=== PATIENT | male | born 1945 | race Caucasian/White ===

== ENCOUNTER 2016-09-12 09:17 | Day surgery (SDC) | payer MEDICARE, BC ==
[~2016-09-12 09:17] MED LIST: Buffered Lidocaine 0.9% SYRIN* 5 ML/SYR SYRINGE INTRADERM ONE; Dexamethasone IV* 4 MG/ML 1 ML (4 MG) IV SLOW PU ONE; Famotidine IV* 10 MG/ML 2 ML (20 mg) IV ONE
[2016-09-12] MEDS ORDERED: Dexamethasone IV* 4 MG/ML 1 ML (4 MG) ONE (09:32)
[2016-09-12] MEDS ORDERED: ceFAZolin 2 GM PREMIX(*) 2 GM/50 ML BAG IVPB ONE (09:32)
[2016-09-12] MEDS ORDERED: Famotidine IV* 10 MG/ML 2 ML (20 mg) ONE (09:32)
[2016-09-12] MEDS ORDERED: Buffered Lidocaine 0.9% SYRIN* 5 ML/SYR SYRINGE ONE (09:54)
[2016-09-12] MEDS ORDERED: Bupivacaine 0.25% SDV* 30 ML ONE (10:23)
[2016-09-12] MEDS ORDERED: Midazolam* 1 MG/ML 2 ML VIAL (2 MG) ONE (10:31)
[2016-09-12] MEDS ORDERED: fentaNYL* 50 MCG/ML 2 ML VIAL (100 MCG VIAL) ONE (10:31)
[2016-09-12] MEDS ORDERED: Propofol* 10 MG/ML 20 ML BTL IV PUSH ONE (10:33)
[2016-09-12] MEDS ORDERED: Lidocaine 2% PF * 5 ML VIAL ONE (10:33)
[2016-09-12] MEDS ORDERED: ROPIVACAINE 5 MG/ML 30 ML BTL (0.5%) ONE (10:35)
[2016-09-12] MEDS ORDERED: EPHEDrine (Pressors)* 50 MG/ML VIAL ONE (11:36)
[2016-09-12] MEDS ORDERED: Ondansetron INJ* 2 MG/ML VIAL ONE ×3 (11:42→14:03)
[2016-09-12] MEDS ORDERED: fentaNYL* 50 MCG/ML 2 ML VIAL (100 MCG VIAL) IV PRN (12:08)
[2016-09-12] MEDS ORDERED: PROCHLORPERAZINE INJ 5 MG/ML 2 ML VIAL IV PRN (12:08)
[2016-09-12] MEDS ORDERED: Acetaminophen TAB* 325 MG PO PRN (12:08)
[2016-09-12] MEDS ORDERED: oxyCODONE/Acetamin 5/325 MG* TAB PO PRN (12:08)
[2016-09-12] MEDS ORDERED: HYDROcodone/ACETAMIN 5-325 MG* 1 TAB PO PRN (12:08)
[2016-09-12] MEDS ORDERED: Ibuprofen TAB* 600 MG PO PRN (12:08)
[2016-09-12] MEDS ORDERED: Metoclopramide IV* 5 MG/ML 2 ML VIAL ONE (14:28)
[2016-09-12 15:02] VITALS: BP 104/58
--- NOTE | 2016-09-13 00:38 | OP ---
DATE OF OPERATION: 09/12/16 - LOCATED WITHIN [facility] DATE OF : 47 SURGEON: Garcia Antoine MD TERMITE TREATER: ARTURO Cruz. An senior care assistant was required for the entirety of the procedure to help with retraction and positioning of the arm. ANESTHESIOLOGIST: Dr. Low. ANESTHESIA: Supraclavicular block plus general LMA. PRE-OP DIAGNOSES: 1. 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 2. Stage 1 SLAC wrist. 3. Right carpal tunnel syndrome. PRE-OP DIAGNOSES: 1. 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 2. Stage 1 SLAC wrist. 3. Right carpal tunnel syndrome. OPERATIVE PROCEDURES: 1. Right open carpal tunnel release. 2. Right wrist proximal row carpectomy. 3. Right posterior interosseous neurectomy at the wrist. 4. Right wrist radial styloidectomy. INDICATIONS: Rhonda is a 71-year-old man who I have seen in the office multiple times. He has end-stage degenerative joint disease at the STT joint. On his imaging including x-rays and CT scans, he has a fixed DISI deformity. He also had some degenerative joint disease at the radial styloid and a cyst in the proximal pole of the scaphoid. His wrist motion is limited only to about 30 to 40 degrees of wrist extension with severe pain at terminal wrist extension. 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 It also became clear that he was having significant symptoms related to peripheral nerve compression, multiple nighttime awakenings. I had delayed any intervention and sent him for electrodiagnostic studies, which showed moderate carpal tunnel syndrome on the right. 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 I had initially talked with Rhonda about the best treatment options for him. I offered him injection which I thought would have to be done under image guidance, but I thought it would be of low utility given the advanced nature of the degenerative joint disease that he has. I had talked to him about releasing the ulnar nerve as well. Ultimately, we had discussed that, but then later we had had subsequent conversations and ultimately we decided that we would see how much relief he would get addressing the arthritis as well as the carpal tunnel and then if we have to come back and do the ulnar nerve at a later date, we can do that as that is a significant amount of surgery for one arm to do all three procedures. I talked to him about different treatment options for the arthritis that he had. In my mind these included couple of options. I did not think he was a good candidate for an STT fusion given the fact that this would tranfer forces to the radioscaphoid joint, which was already abnormal. I also did not think that a distal scaphoid resection would be in his best interest given that this would further alter the mechanics of the wrist and he already has a fixed DISI deformity. I had talked to him about a radioscapholunate fusion coupled with a distal scaphoidectomy. He was not interested in the prolonged immobilization that this would require. The other option I discussed with him would be to do a proximal row carpectomy, which would address his DISI deformity and SLAC wrist and also would alleviate symptoms at the STT joint. Ultimately, we decided to proceed with the proximal row carpectomy and the carpal tunnel release. He understood the risks and benefits. ESTIMATED BLOOD LOSS: 5 mL. COMPLICATIONS: None. FINDINGS: Advanced degenerative changes in the STT and scaphocapitate joints with full thickness cartilage loss. There was also significant cartilage wear and patches of full thickness carpal loss in the radioscaphoid joint. The cartilage over the proximal capitate was certainly not normal, but acceptable. The multiple intraarticular deposits consistent with pseudogout were also encountered. DESCRIPTION OF PROCEDURE: Rhonda was seen in the preoperative holding area. The correct site, side, and the procedure were identified. He came back to the operating room, where the block was placed and anesthesia was induced. The arm was then prepped and draped in the usual fashion and a formal time-out was performed. I began by exsanguinating the arm with the Esmarch and then the tourniquet was inflated to 250 mmHg. I began by making a 2 to 3 cm incision in the standard location for an open carpal tunnel release. Dissection was carried down through the subcutaneous tissue in the palmar fascia. The transverse carpal ligament was exposed. I went ahead and released the transverse carpal ligament just at the ulnar origin of the thenar muscles and off the radial aspect of the hook of the hamate. The release was carried out distally. I then released the subcutaneous tissue and retracted this volarly and ulnarly with the Roya retractor and carried out the rest of the release at the proximal transverse carpal ligament and distal antebrachial fascia under direct visualization with the tenotomy scissors. I then inspected the median nerve. He did indeed have a transligamentous motor branch, which was large and readily apparent. It was just a couple of millimeters radial to where I had released the transverse carpal ligament. It was intact. I went ahead and checked the decompression proximally and distally. Everything looked nice. So, I went ahead and irrigated out the wound and the skin was closed with 4-0 nylon sutures. I then turned my attention to the dorsum of the wrist where a longitudinal incision was made from the proximal third metacarpal down just radial to Mary' s tubercle and on to the dorsum of the forearm. Dissection was carried down longitudinally and full thickness flaps were raised right off of the extensor retinaculum in deep fascial layer to preserve the traversing veins and sensory nerves. Once the full thickness flaps were raised, I went ahead and made a longitudinal incision through the third dorsal compartment extensor retinaculum. The EPL tendon was transposed and retracted radially. The fourth dorsal compartment was released subperiosteally and the tendons retracted ulnarly. The second dorsal compartment tendons were also released and retracted radially via a Con drain with the EPL tendon. Once I had the tendons retracted and the dorsal wrist capsule exposed, I went ahead and raised distally based U flap of capsule to expose the dorsal carpus. Once the flap was raised, I went ahead and flexed wrist down and noted that the SL ligament was indeed completely degenerative and not functional. There was just a bit of the membranous portion proximally that was still in continuity between the two bones. The cartilage surfaces were also noted. The radiolunate cartilage was intact although certainly not normal, but intact. There were some spots of full thickness cartilage loss in the radioscaphoid articulation. The soft tissue was released around the lunate and this was excised with a rongeur in a piecemeal type fashion. I then released some more soft tissue around the proximal scaphoid. I placed a [id number] clamp on the proximal pole of the scaphoid and used this to retract the scaphoid bone as I carried out the release of the soft tissue around the scaphoid. The scaphoid was removed en bloc. I removed the triquetrum en bloc in a similar fashion using the point-of- reduction clamp to retract and manipulate the bone. Once I had completed the proximal row corpectomy, I irrigated out the wound. There were no bony fragments of the lunate remaining. I at this point went ahead and let the capitate fall down and make an articulation with the lunate facet. I brought in the C-arm and checked my fluoroscopy. Ultimately, I thought there was a significant chance for impingement between the trapezium and the radial styloid. Therefore, I used the interval between the first and second dorsal compartments and subperiosteally cleaned off the release of the soft tissue of the radial styloid. I excised the distal 3 to 4 mm of styloid taking great care not to disturb the radioscaphocapitate ligament volarly. I then checked the fluoroscopy again. I was satisfied with my radial styloidectomy. I therefore irrigated out this area. I applied some bone wax to the area of the radial styloidectomy. I used a 4-0 Ethibond suture to reclose the soft tissue over the site of the radial styloidectomy. At this point, I went ahead and dissected out my posterior interosseous nerve. This was released with a tenotomy scissors distally and proximally and was sent to the pathologist as a specimen. The posterior interosseous artery was cauterized with a Bovie. I then brought my distally based capsular U flap back down into position. The 4-0 Ethibond suture was used to repair the capsule. The retinaculum was then brought back in apposition and sewn back together with some 4-0 Ethibond suture. The wound was then copiously irrigated. The skin was reapproximated with some 4-0 Polysorb sutures. Skin was closed with 4-0 nylon horizontal mattress sutures. The wounds were dressed with Xeroform, 4x4s , sterile Webril, and a volar wrist splint was applied. Tourniquet was deflated. The total tourniquet time was about 90 minutes. The hand pinked up immediately. He was then woken back up and taken to recovery room in stable condition. [id number]/[facility] #: [id number] [facility] SYSTEM[facility]
== END 2016-09-12 15:31 | disposition home or self-care (01) ==
LOC: OREAST 09:17
PROVIDERS: ATTEND Orthopaedic Surgery Hand Surgery
DX: M19.031 Primary osteoarthritis, right wrist (principal); G56.01 Carpal tunnel syndrome, right upper limb; M25.831 Other specified joint disorders, right wrist
CPT/HCPCS: 88302; 88304; 88311; J0690; J1100; J2250; J2405; J2704; J2795; J3010

== ENCOUNTER 2017-06-10 07:17 | Inpatient (IN) | payer MEDICARE, OTHER ==
--- NOTE | 2017-05-30 20:45 | HP ---
HISTORY AND PHYSICAL: DATE OF ADMISSION: 06/10/17 DATE OF SURGERY: 06/10/17 DATE OF OFFICE VISIT: 05/30/17 SURGEON: Virginia Watt MD* (dictated by ARTURO Hanson). PROCEDURE: Right total hip arthroplasty. CHIEF COMPLAINT: Right hip pain. HISTORY OF PRESENT ILLNESS: Mr. Koehler is a 71-year-old gentleman with complaints of right hip pain secondary to advanced osteoarthritis. He has failed conservative management and elected to proceed with a right total hip arthroplasty, which is scheduled for 06/10/[address] Watt. PAST MEDICAL HISTORY: BPH, basal cell carcinoma, Raynaud's disease, and history of DVT in 2012. PAST SURGICAL HISTORY: Left total knee arthroplasty, left total hip arthroplasty, hernia repair, cystocele repair, proximal carpectomy, right carpal tunnel release, tonsillectomy. CURRENT MEDICATIONS: 1. Aspirin 81 mg daily. 2. Motrin 200 mg as needed. 3. Triamcinolone acetonide 0.5% as needed. 4. Fish oil. 5. Glucosamine. 6. Chondroitin. 7. Saw palmetto. 8. Pygeum bark. 9. Lycopene. 10. Calcium. 11. Magnesium. 12. Vitamin D. 13. Xpxdpm-[id number]. 14. Betaine HCL. 15. Vitamin C. 16. Homeopathic eye drops. ALLERGIES: MORPHINE causing a severe reaction, causing severe low heart rate, CELEBREX, VIOXX, OXYCODONE causing nausea, compounds, yeast related compounds, WHEAT. FAMILY HISTORY: Coronary artery disease, stroke. SOCIAL HISTORY: This is a 71-year-old gentleman lives with his . He does not smoke, use drugs or alcohol. REVIEW OF SYSTEMS: A complete 14-point review of systems was reviewed with the patient and was positive for history of a DVT in 2012. Denies history of hepatitis C, HIV, or MRSA. PHYSICAL EXAMINATION GENERAL: He is well developed, well nourished, in no acute distress. VITAL SIGNS: He stands 6 feet 1 inch tall, weighs 156 pounds. His blood pressure is 112/70, his heart rate is 63. HEENT: Normocephalic, atraumatic. NECK: Supple. No palpable lymph nodes. PULMONARY: Lungs are clear to auscultation bilaterally. CARDIAC: Regular rate and rhythm. Strong S1 and S2. ABDOMEN: Soft, nontender, nondistended. MUSCULOSKELETAL: Right lower extremity, the skin is intact. There are no open wounds or abrasions. He has decreased internal and external rotation of the right hip. He walks with an antalgic type gait. He has 2+ dorsalis pedis pulses. Intact sensation in his lower extremity. Muscle group strengths are intact at 5/5. NEUROLOGIC: He is alert and oriented x3. Cranial nerves II through XII are intact. ASSESSMENT AND PLAN: Mr. Koehler is a 71-year-old gentleman with severe right hip pain secondary to advanced osteoarthritis. He has failed conservative management and elected to proceed with a right total hip arthroplasty, which is scheduled for 06/10/[address] Watt discussed the risks and benefits of the surgery on today's visit and all of his questions were answered. He will follow up with Dr. Watt in 2 weeks after the surgery. ARTURO HANSON [id number]/[facility] #: [id number] MTDD
--- OUTSIDE RECORDS SUMMARY | 2017-06-10 07:26 | XMS REPORT ---
:1945 External Reference #:[id number] Author Organization [facility] Address [address] [address] Phone [phone] Care Team Providers Name Role Phone Sunny Leyva MD Primary Care Physician Unavailable Payers Type Date Identification Numbers Payment Provider Subscriber Medicare Primary Effective: Policy Number: [id number] Medicare Colt Koehler 2011 PayID: [id number] [address] [place] [address] Medigap Part B Effective: 2011 Policy Number: [id number] BS Facets Colt Koehler Expires: 2016 PayID: [id number] [address] [address] [place] [address] Commercial Policy Number: [id number] [facility] Colt Koehler PayID: [id number] [address] [place] [address] Problems Date Description Provider Status Onset: 03/05/2011 Benign prostatic hypertrophy Sunny Leyva, Active without outflow obstruction Mitchel,FACP Onset: 03/05/2011 Raynaud's disease Sunny Leyva Active Mitchel,FACP Onset: 01/04/2013 Basal Cell Carcinoma Skin Upper Sunny Leyva, Active Limb Including Shoulder Mitchel,FACP Onset: 01/04/2013 Raised prostate specific antigen Latoya Garcia M.D.,FACP Onset: 03/12/2016 Osteoarthritis of hip Latoya Garcia M.D.,FACP Note: right, LT replaced in past Onset: 06/21/2016 Localized, primary osteoarthritis Garcia Antoine MD Active of the wrist Onset: 07/03/2016 Chondrocalcinosis of wrist joint Garcia Antoine MD Active Onset: 2016 Carpal tunnel syndrome of right Garcia Antoine MD Active wrist Onset: 09/03/2016 Lesion of ulnar nerve Garcia Antoine MD Active Onset: 04/11/2017 Localized, primary osteoarthritis Virginia Watt M.D. 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 Sunny Leyva, Inactive of distal lower extremity Mitchel,FACP Inactive: 04/16/2013 Onset: 04/16/2013 Chronis Venous Sunny Leyva, Inactive Embolism&Thrombosis,Deep Vessel Mitchel,FACP Distal Lower Inactive: 12/06/2014 Family History Date Family Member(s) Problem(s) Comments General Heart Disease General Stroke Father Arthritis, Osteo Father 95 : (age 97 Father due to Natural Years) Causes Father Headache Father Osteoporosis kyphosis Mother due to HI () - age 85 Mother Stroke First Brother Gallstones First Brother Sleep Apnea First Brother syncope once Paternal Grandmother Mental Illness schizophrenia Social History Type Date Description Comments Marital Status Lives With Occupation Teacher semi-retired Cigarette Use Never Smoked Cigarettes ETOH Use 01/22/2016 Denies alcohol use Smoking Patient has never smoked Recreational Drug Use Denies Drug Use Exercise Type/Frequency Exercises regularly General Hx Text no kids Allergies, Adverse Reactions, Alerts Date Description Reaction Status Severity Comments 03/05/2011 Morphine and Related active heart stops 03/05/2011 vioxx active chest pain 03/05/2011 Celebrex active chest pain 03/05/2011 Oxycodone active heart problems 03/05/2011 Milk-related Compounds active stomach upset 03/05/2011 Yeast-related Products active skin rash 03/05/2011 wheat active stomach upset 12/06/2014 Morphine active cardiac arrest Medications Medication Date Status Form Strength Qnty SIG Indications Ordering Provider Aspirin Adult Low 08/01 Active Tablets 81mg 30tab [address] manning every day Wanda Leyva M.D.,FACP Motrin Ib 05/22 Active Tablets 200mg 1-2 twice a day as flip Bourgeois M.D.,FACP Triamcinolone 03/12 Active Cream 0.5% 30gm every day Sunny Acetonide as needed Wanda Leyva M.D.,[facility] TJorgeEDavid Below Knee 12/15 Active Misc 2unit Sunny Med-X /2012 s [facility] M.D.,[facility] Fish Oil Active Capsules 910mg takes Unknown Concentrate daily Glucosamine Active Capsules 1500Com 1 daily Unknown Chondroitin 1500 Complex Maximum Strength Saw [place] Plus Active Capsules 320mg 1 capsule Unknown / daily Pygeum Bark Active Powder 50mg daily Unknown Lycopene Active Capsules 10mg takes 2 Unknown daily Calcium/Magnesium/V Active Tablets 120mg-90m daily Unknown itamin g-250MG Acetyl L-Carnitine Active Capsules 500mg daily Unknown Betaine HCL Active Tablets 300mg 2 with Unknown meals Vitamin C Active Tablets 500mg 1 po qd Homeopathic Active Unknown Eyedrops Hydrocodone-Acetami 09/12 Hx Tablets 5-325mg 30tab 1 or 2 Garcia wade s tabs by Arash, - mouth 10/04 every - hours as needed for pain Metaxalone 01/21 Hx Tablets 400mg 30tab 1 by mouth M46.1 s 3x/day if Wanda Leyva, - needed Mitchel,FACP 05/22 Mometasone Furoate 05/15 Hx Cream 0.1% 60g apply L40.9 Jaden topically Upper Sorbian, - to [employer] 06/08 affected area 2 times a day until rash is resolved Cyclobenzaprine HCL 03/17 Hx Tablets 5mg 20tab take one T84.84xS s tablet by Wanda Leyva, - mouth Mitchel,FACP 04/05 twice a /2015 day as needed Doxycycline 12/06 Hx Capsules 100mg 14cap si bid 088.81 Sunny Monohydrate s x 7 days Carol Bourgeois M.D.,[facility] 12/19 Meloxicam 12/06 Hx Tablets 7.5mg 40tab 1 by mouth A69.29 s twice a Wanda Leyva, - day as Mitchel,[facility] 04/05 Doxycycline Hyclate 08/25 Hx Tablets 100mg 14tab 1 po bid A69.29 s x7 days Carol Bourgeois M.D.,[facility] 12/26 Mupirocin 08/25 Hx Ointment 2% 15g twice a 478.11 day as Wanda Leyva, - needed Mitchel,[facility] 03/17 Keflex 08/05 Hx Capsules 500mg 14cap 1 tab by 704.8 Guru s mouth JOHNY Teran - twice a 08/24 day x days Aspirin 12/09 Hx Tablets 81mg 1 by mouth Guru every day JOHNY Teran - 05/26 Doxycycline 12/09 Hx Capsules 100mg 42cap si 088.81 Guru [facility] s twice a JOHNY Teran - day x 21 Omeprazole 12/02 Hx Capsules 20mg 30cap [address] s every day JOHNY Teran - 12/09 Aspirin 07/11 Hx Tablets 325mg 30tab 1 by mouth 453.40 s every day Carol Bourgeois M.D.,[facility] 12/09 Famciclovir 05/25 Hx Tablets 250mg 60tab 1 tab po s bid Carol Bourgeois M.D.,[facility] 11/30 Xarelto 12/24 Hx Tablets 20mg 30tab po qd 453.40 s Carol Bourgeois M.D.,[facility] 07/11 Xarelto 12/10 Hx Tablets 15mg 42tab 1 po bid 453.40 Darci Garcias s for 3 Pamela, - weeks Mitchel 12/24 Amoxicillin 12/08 Hx Tablets 500mg 28tab 2 tabs po 466.0 s bid for [address] M.D.,[facility] 01/02 Benzonatate 12/08 Hx Capsules 200mg 20cap po tid prn 466.0 s Carol Bourgeois M.D.,[facility] 01/02 Valacyclovir HCL 08/29 Hx Tablets 1gm 21tab po q8h for 054.19 s 1 wk prn Carol Bourgeois M.D.,[facility] 01/02 Doxycycline Hyclate 08/29 Hx Tablets 100mg 4tabs 2 tabs po 054.19 x1 ishmael Leyva, - prn MDavid,[facility] 01/02 Carisoprodol 08/01 Hx Tablets 250mg 30tab 1 tab po 719.45 s qhs Carol Bourgeois M.D.,[facility] 01/02 Doxycycline Hyclate 08/28 Hx Tablets 100mg 4tabs 2 tabs po x1 ishmael Leyva, - prn MDavid,[facility] 10/12 Keflex 12/30 Hx Capsules 500mg 40cap 1 po qid 782.1 Stevanovi /2008 s c, - Estrella, 08/30 Mitchel /2010 Multivitamins Hx Capsules QS 1 capsule Unknown /0000 daily - 03/12 Phosphatidylserine Hx Capsule 20% 1 capsule Unknown /0000 daily - 12/08 Garces Hx 3x times a Unknown /0000 day - 12/09 Amoxicillin Hx Capsules 500mg 12cap take 4 Sunny s capsules 1 Wanda Leyva, - hour prior Mitchel,[facility] 11/30 to procedure as needed Lysine Hx Capsules 500mg Unknown /0000 - 11/30 Selenium Hx Tablets 100mcg 1 po qd Unknown /0000 - 02/12 Motrin Ib Hx Tablets 200mg 60tab 1 tab po Unknown /0000 s 4-6 times - daily or 12/14 as needed /2013 Tumeric Hx Unknown /0000 - 05/26 Medications Administered in Office Medication Date Status Form Strength Qnty SIG Indications Ordering Provider Celestone 3 mg Administered Injection Garcia and 3mg Cherie Antoine MD Immunizations CPT Code Status Date Vaccine Reaction Lot # [id number] Given 04/04/2017 Influenza Virus Vaccine, no reaction, pt [id number] Quadrivalent, Split, tolerated well Preservative Free [id number] Given 01/22/2016 Influenza Virus Vaccine, no reaction [id number] Quadrivalent, [place] [address] Given 04/05/2015 Influenza Virus Vaccine, no reaction noted [id number] Quadrivalent, Split, Preservative Free 33513 Given 04/05/2015 Pneumococcal Conjugate no reaction noted [id number] Vaccine 13 Valent For Intramuscular Use 89364 Given 02/08/2014 Flu Vaccine Split Virus [id number] Preservative Free For Indiv 3Yr Older 37997 Given 01/04/2013 Flu Vaccine Split Virus [id number] Preservative Free For Indiv 3Yr Older [id number] Given 02/27/2012 Fluvirin Im 3Yrs And Older [id number] 87089 Given 02/27/2012 Pneumonia Vaccine [id number] 73174 Given 08/02/2011 Tdap - [id number] Tetanus/Diptheria/Acellular Pertussis 83734 Given 03/05/2011 Flu Vaccine Split Virus [id number] Preservative Free For Indiv 3Yr Older 13181 Given 10/12/2010 Zoster (Zostavax) [id number] Vital Signs Date Vital Result Comment 05/30/2017 Heart Rate 63 /min BP Systolic 112 mmHg BP Diastolic 70 mmHg Respiratory Rate 16 /min Body Temperature 97.0 F Pain Level 2 05/26/2017 Weight 154.00 lb Heart Rate 70 /min BP Systolic Sitting 98 mmHg BP Diastolic Sitting 56 mmHg Body Temperature 97.0 F O2 % BldC Oximetry 97 % 04/11/2017 Height 71 inches 5'11" Weight 156.00 lb BP Systolic 108 mmHg BP Diastolic 62 mmHg Respiratory Rate 15 /min Body Temperature 97.1 F Pain Level 2 BMI (Body Mass Index) 21.8 kg/m2 04/04/2017 Weight 156.12 lb Heart Rate 56 /min BP Systolic 132 mmHg BP Diastolic 68 mmHg BP Systolic Recheck 98 mmHg LT: 88/40 BP Diastolic Recheck 62 mmHg LT: 88/40 Body Temperature 95.9 F O2 % BldC Oximetry 97 % 04/02/2017 Height 71 inches 5'11" Weight 152.00 lb Heart Rate 64 /min Respiratory Rate 14 /min Body Temperature 98.0 F Pain Level 1 BMI (Body Mass Index) 21.2 kg/m2 12/31/2016 Height 71 inches 5'11" Weight 152.00 lb Heart Rate 64 /min BP Systolic 112 mmHg BP Diastolic 64 mmHg Respiratory Rate 15 /min Body Temperature 96.7 F Pain Level 1 BMI (Body Mass Index) 21.2 kg/m2 10/29/2016 Height 71 inches 5'11" Weight 152.00 lb Heart Rate 60 /min BP Systolic 98 mmHg BP Diastolic 64 mmHg Respiratory Rate 15 /min Pain Level 3 BMI (Body Mass Index) 21.2 kg/m2 10/04/2016 Height 71 inches 5'11" Weight 152.00 lb BP Systolic 101 mmHg BP Diastolic 66 mmHg Body Temperature 98.1 F Pain Level 1 BMI (Body Mass Index) 21.2 kg/m2 09/17/2016 Height 71 inches 5'11" Weight 152.00 lb Heart Rate 56 /min BP Systolic 110 mmHg BP Diastolic 71 mmHg Body Temperature 96.7 F BMI (Body Mass Index) 21.2 kg/m2 09/03/2016 Height 71 inches 5'11" Weight 152.00 lb Heart Rate 60 /min BP Systolic 110 mmHg BP Diastolic 66 mmHg Respiratory Rate 12 /min Body Temperature 96.3 F Pain Level 2 BMI (Body Mass Index) 21.2 kg/m2 2016 Height 71 inches 5'11" Weight 152.00 lb Heart Rate 46 /min BP Systolic 108 mmHg BP Diastolic 62 mmHg Respiratory Rate 16 /min BMI (Body Mass Index) 21.2 kg/m2 07/24/2016 Weight 156.12 lb Heart Rate 74 /min BP Systolic Sitting 114 mmHg BP Diastolic Sitting 68 mmHg Body Temperature 97.4 F O2 % BldC Oximetry 98 % 07/03/2016 Height 70.5 inches 5'10.50" Weight 154.00 lb Heart Rate 64 /min Respiratory Rate 16 /min Pain Level 4 BMI (Body Mass Index) 21.8 kg/m2 06/21/2016 Height 70.5 inches 5'10.50" Weight 154.00 lb Heart Rate 56 /min BP Systolic 119 mmHg BP Diastolic 74 mmHg Respiratory Rate 15 /min Pain Level 2 BMI (Body Mass Index) 21.8 kg/m2 06/10/2016 Height 70.5 inches 5'10.50" Weight 154.00 lb Heart Rate 78 /min BP Systolic Sitting 98 mmHg BP Diastolic Sitting 64 mmHg Body Temperature 97.5 F O2 % BldC Oximetry 98 % BMI (Body Mass Index) 21.8 kg/m2 05/22/2016 Height 70.5 inches 5'10.50" Weight 150.00 lb Heart Rate 68 /min BP Systolic Sitting 100 mmHg BP Diastolic Sitting 52 mmHg Body Temperature 96.8 F O2 % BldC Oximetry 98 % BMI (Body Mass Index) 21.2 kg/m2 03/12/2016 Weight 154.00 lb Heart Rate 54 /min BP Systolic Sitting 120 mmHg BP Diastolic Sitting 72 mmHg Respiratory Rate 15 /min Body Temperature 97.3 F O2 % BldC Oximetry 98 % 01/22/2016 Weight 155.00 lb Heart Rate 54 /min BP Systolic Sitting 110 mmHg BP Diastolic Sitting 60 mmHg Body Temperature 96.9 F O2 % BldC Oximetry 96 % 05/15/2015 Height 70.5 inches 5'10.50" Weight 161.00 lb Heart Rate 74 /min BP Systolic Sitting 100 mmHg BP Diastolic Sitting 68 mmHg Body Temperature 98.0 F O2 % BldC Oximetry 94 % BMI (Body Mass Index) 22.8 kg/m2 04/05/2015 Height 70.5 inches 5'10.50" Weight 159.00 lb Heart Rate 54 /min BP Systolic Sitting 117 mmHg BP Diastolic Sitting 72 mmHg Body Temperature 97.1 F O2 % BldC Oximetry 98 % BMI (Body Mass Index) 22.5 kg/m2 03/17/2015 Height 70 inches 5'10" Weight 162.50 lb Heart Rate 60 /min BP Systolic Sitting 104 mmHg BP Diastolic Sitting 66 mmHg Respiratory Rate 14 /min Body Temperature 96.7 F tympanic Pain Level 4 O2 % BldC Oximetry 97 % room air BMI (Body Mass Index) 23.3 kg/m2 12/19/2014 Height 70 inches 5'10" Weight 158.00 lb Heart Rate 80 /min BP Systolic Sitting 114 mmHg BP Diastolic Sitting 73 mmHg Body Temperature 97.4 F O2 % BldC Oximetry 95 % BMI (Body Mass Index) 22.7 kg/m2 12/06/2014 Height 70 inches 5'10" Weight 158.00 lb Heart Rate 78 /min BP Systolic Sitting 122 mmHg BP Diastolic Sitting 84 mmHg Body Temperature 98.6 F O2 % BldC Oximetry 98 % BMI (Body Mass Index) 22.7 kg/m2 08/25/2014 Height 70 inches 5'10" Weight 157.50 lb Heart Rate 67 /min BP Systolic Sitting 110 mmHg BP Diastolic Sitting 62 mmHg Body Temperature 97.4 F O2 % BldC Oximetry 98 % BMI (Body Mass Index) 22.6 kg/m2 08/05/2014 Height 70 inches 5'10" Weight 157.00 lb Heart Rate 66 /min BP Systolic Sitting 122 mmHg BP Diastolic Sitting 60 mmHg Body Temperature 98.3 F O2 % BldC Oximetry 98 % BMI (Body Mass Index) 22.5 kg/m2 04/12/2014 Weight 163.50 lb Heart Rate 67 /min BP Systolic Sitting 90 mmHg BP Diastolic Sitting 50 mmHg O2 % BldC Oximetry 97 % 12/23/2013 Weight 165.00 lb Heart Rate 68 /min BP Systolic Sitting 102 mmHg BP Diastolic Sitting 50 mmHg Body Temperature 97.0 F 12/14/2013 Weight 166.00 lb Heart Rate 68 /min BP Systolic Sitting 100 mmHg BP Diastolic Sitting 50 mmHg Body Temperature 97.7 F 12/09/2013 Weight 165.50 lb Heart Rate 64 /min BP Systolic Sitting 98 mmHg BP Diastolic Sitting 56 mmHg Body Temperature 97.3 F 11/30/2013 Weight 164.00 lb Heart Rate 88 /min BP Systolic Sitting 100 mmHg BP Diastolic Sitting 58 mmHg Body Temperature 97.2 F Pain Level 6 04/16/2013 Height 70.75 inches 5'10.75" Weight 163.00 lb Heart Rate 70 /min BP Systolic Sitting 100 mmHg BP Diastolic Sitting 58 mmHg BMI (Body Mass Index) 22.9 kg/m2 02/12/2013 Weight 165.00 lb Heart Rate 68 /min BP Systolic Sitting 118 mmHg BP Diastolic Sitting 60 mmHg 01/22/2013 Height 71 inches 5'11" Weight 164.25 lb Heart Rate 68 /min BP Systolic Sitting 104 mmHg BP Diastolic Sitting 60 mmHg Body Temperature 97.9 F BMI (Body Mass Index) 22.9 kg/m2 01/04/2013 Weight 165.75 lb Heart Rate 70 /min BP Systolic Sitting 118 mmHg BP Diastolic Sitting 66 mmHg 12/24/2012 Height 70.75 inches 5'10.75" Weight 163.50 lb Heart Rate 68 /min BP Systolic Sitting 110 mmHg BP Diastolic Sitting 48 mmHg BMI (Body Mass Index) 23.0 kg/m2 12/10/2012 Weight 162.00 lb Heart Rate 54 /min BP Systolic Sitting 126 mmHg BP Diastolic Sitting 78 mmHg 12/08/2012 Height 70.5 inches 5'10.50" Weight 162.00 lb Heart Rate 80 /min BP Systolic Sitting 98 mmHg BP Diastolic Sitting 56 mmHg BMI (Body Mass Index) 22.9 kg/m2 02/27/2012 Height 70.75 inches 5'10.75" Weight 156.00 lb Heart Rate 68 /min BP Systolic Sitting 100 mmHg BP Diastolic Sitting 56 mmHg Body Temperature 98.1 F BMI (Body Mass Index) 21.9 kg/m2 01/03/2012 Height 70.75 inches 5'10.75" Weight 152.00 lb Heart Rate 60 /min BP Systolic Sitting 90 mmHg BP Diastolic Sitting 46 mmHg BMI (Body Mass Index) 21.3 kg/m2 12/09/2011 Height 72 inches 6'0" Weight 157.00 lb Heart Rate 76 /min BP Systolic Sitting 114 mmHg BP Diastolic Sitting 74 mmHg Body Temperature 97.0 F lt ear BMI (Body Mass Index) 21.3 kg/m2 10/28/2011 Height 72 inches 6'0" Weight 151.00 lb Heart Rate 62 /min BP Systolic Sitting 106 mmHg BP Diastolic Sitting 64 mmHg Body Temperature 96.3 F lt ear BMI (Body Mass Index) 20.5 kg/m2 08/30/2011 Height 72 inches 6'0" Weight 154.00 lb Heart Rate 64 /min BP Systolic Sitting 104 mmHg BP Diastolic Sitting 60 mmHg Body Temperature 95.6 F rt ear BMI (Body Mass Index) 20.9 kg/m2 08/29/2011 Height 72 inches 6'0" Weight 154.00 lb Heart Rate 53 /min BP Systolic 102 mmHg BP Diastolic 64 mmHg BMI (Body Mass Index) 20.9 kg/m2 08/02/2011 Height 71.25 inches 5'11.25" Weight 153.00 lb Heart Rate 74 /min BP Systolic Sitting 102 mmHg BP Diastolic Sitting 60 mmHg BMI (Body Mass Index) 21.2 kg/m2 03/05/2011 Height 71.25 inches 5'11.25" Weight 158.50 lb Heart Rate 64 /min BP Systolic Sitting 90 mmHg BP Diastolic Sitting 52 mmHg BMI (Body Mass Index) 21.9 kg/m2 11/06/2010 Weight 162.00 lb Heart Rate 54 /min BP Systolic Sitting 104 mmHg BP Diastolic Sitting 64 mmHg 10/12/2010 Weight 162.00 lb Heart Rate 72 /min BP Systolic Sitting 102 mmHg BP Diastolic Sitting 68 mmHg BMI (Body Mass Index) 4.3 kg/m2 08/30/2010 Weight 164.00 lb Heart Rate 64 /min BP Systolic Sitting 100 mmHg BP Diastolic Sitting 60 mmHg 12/30/2008 Weight 168.50 lb Heart Rate 70 /min BP Systolic Sitting 120 mmHg BP Diastolic Sitting 72 mmHg 12/21/2008 Weight 166.00 lb Heart Rate 78 /min BP Systolic Sitting 115 mmHg BP Diastolic Sitting 67 mmHg 09/19/2008 Weight 164.00 lb Heart Rate 60 /min BP Systolic Sitting 104 mmHg BP Diastolic Sitting 68 mmHg 09/14/2008 Height 72 inches 6'0" Weight 166.00 lb Heart Rate 66 /min BP Systolic Sitting 100 mmHg BP Diastolic Sitting 60 mmHg BMI (Body Mass Index) 22.5 kg/m2 09/05/2008 Height 72 inches 6'0" Weight 160.00 lb Heart Rate 60 /min BP Systolic Sitting 116 mmHg BP Diastolic Sitting 72 mmHg Respiratory Rate 16 /min BMI (Body Mass Index) 21.7 kg/m2 05/20/2008 Height 72 inches 6'0" Weight 163.00 lb Heart Rate 56 /min BP Systolic Sitting 104 mmHg BP Diastolic Sitting 63 mmHg BMI (Body Mass Index) 22.1 kg/m2 Results Test Date Test Result H/L Range Note Basic Metabolic Panel 05/23/2017 Sodium 137 mmol/L 133-145 Potassium 5.3 mmol/L High 3.5-5.0 Chloride 103 mmol/L 101-111 Co2 Carbon Dioxide 30 mmol/L 22-32 Anion Gap 4 mmol/L 2-11 Glucose 88 mg/dL 70-100 Blood Urea Nitrogen 17 mg/dL 6-24 Creatinine 0.99 mg/dL 0.67-1.17 BUN/Creatinine Ratio 17.2 8-20 Calcium 9.4 mg/dL 8.6-10.3 Egfr Non- 74.7 >60 Egfr 96.1 >60 1 CBC Auto Diff 05/23/2017 White Blood Count 4.2 10^3/uL 3.5-10.8 Red Blood Count 4.36 10^6/uL 4.0-5.4 Hemoglobin 14.1 g/dL 14.0-18.0 Hematocrit 42 % 42-52 Mean Corpuscular Volume 96 fL High 80-94 Mean Corpuscular Hemoglobin 32 pg High 27-31 Mean Corpuscular HGB Conc 34 g/dL 31-36 Red Cell Distribution Width 13 % 10.5-15 Platelet Count 259 10^3/uL 150-450 Mean Platelet Volume 8 um3 7.4-10.4 Abs Neutrophils 2.2 10^3/uL 1.5-7.7 Abs Lymphocytes 1.3 10^3/uL 1.0-4.8 Abs Monocytes 0.5 10^3/uL 0-0.8 Abs Eosinophils 0.3 10^3/uL 0-0.6 Abs Basophils 0 10^3/uL 0-0.2 Abs Nucleated RBC 0 10^3/uL Granulocyte % 51.4 % 38-83 Lymphocyte % 29.7 % 25-47 Monocyte % 11.9 % High 0-7 Eosinophil % 6.2 % High 0-6 Basophil % 0.8 % 0-2 Nucleated Red Blood Cells % 0.1 Laboratory test finding 05/23/2017 PSA Diagnostic 5.470 ng/mL High 0- 4.000 2 Laboratory test finding 04/15/2017 C Difficile PCR SEE RESULT BELOW 3 Stool Calprotectin <15.6 g/G 4 Laboratory test 09/12/2016 Surgical Pathology SEE RESULT BELOW 5, 6 finding Laboratory test 08/14/2016 PSA Screening 3.463 ng/mL 0-4.0 7 finding CBC Auto Diff 08/14/2016 White Blood Count 3.8 10^3/uL 3.5-10.8 Red Blood Count 4.38 10^6/uL 4.0-5.4 Hemoglobin 13.8 g/dL Low 14.0-18.0 Hematocrit 41 % Low 42-52 Mean Corpuscular Volume 94 fL 80-94 Mean Corpuscular Hemoglobin 31 pg 27-31 Mean Corpuscular HGB Conc 33 g/dL 31-36 Red Cell Distribution Width 13 % 10.5-15 Platelet Count 267 10^3/uL 150-450 Mean Platelet Volume 8 um3 7.4-10.4 Abs Neutrophils 1.9 10^3/uL 1.5-7.7 Abs Lymphocytes 1.2 10^3/uL 1.0-4.8 Abs Monocytes 0.4 10^3/uL 0-0.8 Abs Eosinophils 0.2 10^3/uL 0-0.6 Abs Basophils 0 10^3/uL 0-0.2 Abs Nucleated RBC 0 10^3/uL Granulocyte % 51.9 % 38-83 Lymphocyte % 31.3 % 25-47 Monocyte % 11.5 % High 1-9 Eosinophil % 4.6 % 0-6 Basophil % 0.7 % 0-2 Nucleated Red Blood Cells % 0 Laboratory test finding 08/14/2016 Glucose 67 mg/dL Low 70-100 Laboratory test finding 02/07/2016 PSA Diagnostic 2.562 ng/mL 0-4.0 8 Laboratory test finding 08/08/2015 PSA Diagnostic 6.090 ng/mL High 0-4.0 9 Lipid Profile 04/03/2015 Triglycerides 60 mg/dL 10, 11 (Trig/Chol/HDL) Cholesterol 156 mg/dL 10, 12 HDL Cholesterol 67.9 mg/dL 10, 13 LDL Cholesterol 76 mg/dL 10, 14 Laboratory test finding 03/17/2015 C Reactive Protein < 1.00 mg/L &lt ; 5.00 15 Erythrocyte Sed Rate 12 mm/Hr 0-40 Laboratory test finding 01/13/2015 PSA Diagnostic 5.003 ng/mL High 0-4.0 16 CBC Auto Diff 01/13/2015 White Blood Count 3.7 10^3/uL Low 4.8-10.8 Red Blood Count 4.09 10^6/uL 4.0-5.4 Hemoglobin 13.2 g/dL Low 14.0-18.0 Hematocrit 40 % Low 42-52 Mean Corpuscular Volume 98 fL High 80-94 Mean Corpuscular Hemoglobin 32 pg High 27-31 Mean Corpuscular HGB Conc 33 g/dL 31-36 Red Cell Distribution Width 13 % 10.5-15 Platelet Count 264 10^3/uL 150-450 Mean Platelet Volume 8 um3 7.4-10.4 Abs Neutrophils 1.6 10^3/uL 1.5-7.7 Abs Lymphocytes 1.3 10^3/uL 1.0-4.8 Abs Monocytes 0.4 10^3/uL 0-0.8 Abs Eosinophils 0.4 10^3/uL 0-0.6 Abs Basophils 0 10^3/uL 0-0.2 Abs Nucleated RBC 0 10^3/uL Granulocyte % 43.6 % 38-83 Lymphocyte % 34.1 % 25-47 Monocyte % 11.4 % High 1-9 Eosinophil % 10.1 % High 0-6 Basophil % 0.8 % 0-2 Nucleated Red Blood Cells % 0.1 Comp Metabolic Panel 01/13/2015 Sodium 138 mmol/L 133-145 Potassium 4.6 mmol/L 3.5-5.0 Chloride 103 mmol/L 101-111 Co2 Carbon Dioxide 33 mmol/L High 22-32 Anion Gap 2 mmol/L 2-11 Glucose 77 mg/dL 70-100 Blood Urea Nitrogen 18 mg/dL 6-24 Creatinine 1.17 mg/dL 0.67-1.17 BUN/Creatinine Ratio 15.4 8-20 Calcium 9.2 mg/dL 8.6-10.3 Total Protein 6.5 g/dL 6.4-8.9 Albumin 4.1 g/dL 3.2-5.2 Globulin 2.4 g/dL 2-4 Albumin/Globulin Ratio 1.7 1-3 Total Bilirubin 0.60 mg/dL 0.2-1.0 Alkaline Phosphatase 52 U/L 34-104 Alt 16 U/L 7-52 Ast 20 U/L 13-39 Egfr Non- 62.0 >60 Egfr 79.7 >60 17 Laboratory test finding 01/13/2015 C Reactive Protein 5.56 mg/L High < 5.00 18 Lyme Western Blot 12/06/2014 Lyme Disease IgG Ab WB Positive Negative Lyme Disease IgG Bands Present See Comment kDa 19 Lyme Disease IgM Ab WB Negative Negative Lyme Disease IgM Bands Present No bands detecte <SEE NOTE> kDa 20 Lyme Disease Interpretation See Comment 21 Laboratory test finding 12/06/2014 Lyme Disease Serology Positive Negative 22 Erythrocyte Sed Rate 48 mm/Hr High 0-40 C Reactive Protein 23.53 mg/L High < 5.00 23 Laboratory test 09/08/2014 PSA Diagnostic 4.517 ng/mL High 0-4.0 24 finding Laboratory test 06/13/2014 PSA Diagnostic 7.597 ng/mL High 0-4.0 25 finding Laboratory test 03/28/2014 PSA Diagnostic 6.822 ng/mL High 0-4.0 26 finding Xray 12/09/2013 Knee Complete RT <pending> Lyme Western Blot 11/30/2013 Lyme Disease IgG Ab Negative Negative WB Lyme Disease IgG Bands Present p41, kDa Lyme Disease IgM Ab WB Positive Negative Lyme Disease IgM Bands Present p41, p39, kDa Lyme Disease Interpretation See Comment 27 Laboratory test finding 11/30/2013 Rheumatoid Factor <15 IU/mL <15 28 Erythrocyte Sed Rate 16 mm/Hr 0-40 C Reactive Protein < 0.10 mg/L < 5.00 29 Bebe (Anti-Nuclear AB) Screen Negative Negative Vitamin D 1,25 And 11/30/2013 Vitamin D 1,25-Dihydroxy 45 pg/mL 18-64 30 Vitamin D,2 Vitamin D, 25 Hydroxy 11/30/2013 25-Hydroxy Vitamin D2 <4.0 ng/mL 25-Hydroxy Vitamin D3 30 ng/mL 25-Hydroxy Vitamin D Total 30 ng/mL 31 Comp Metabolic Panel 11/30/2013 Sodium 137 mmol/L 133-145 Potassium 4.3 mmol/L 3.7-5.6 Chloride 103 mmol/L 101-111 Co2 Carbon Dioxide 32 mmol/L 22-32 Anion Gap 2 mmol/L 2-11 Glucose 77 mg/dL 70-100 Blood Urea Nitrogen 18 mg/dL 6-24 Creatinine 1.15 mg/dL 0.67-1.17 BUN/Creatinine Ratio 15.7 8-20 Calcium 9.1 mg/dL 8.6-10.3 Total Protein 6.8 g/dL 6.4-8.9 Albumin 3.9 g/dL 3.2-5.2 Globulin 2.9 g/dL 2-4 Albumin/Globulin Ratio 1.3 1-3 Total Bilirubin 0.70 mg/dL 0.2-1.0 Alkaline Phosphatase 44 U/L 34-104 Alt 15 U/L 7-52 Ast 22 U/L 13-39 Egfr Non- 63.4 >60 Egfr 81.6 >60 32 Laboratory test 11/30/2013 D Dimer Quantitative < 200 Less Than 33 finding ng/mL 230 Laboratory test 10/22/2013 PSA Screening 3.508 ng/mL 0-4.0 34 finding Laboratory test 08/04/2013 PSA Diagnostic 4.430 ng/mL High 0-4.0 35 finding Laboratory test 08/02/2013 D Dimer Quantitative < 200 Less Than 36 finding ng/mL 230 Laboratory test 06/25/2013 D Dimer Quantitative < 200 Less Than 37 finding ng/mL 230 Laboratory test 06/02/2013 PSA Diagnostic 5.608 ng/mL High 0-4.0 38 finding Lupus Anticoagulant 05/19/2013 Prothrombin 10.7 sec 39 AB Time(Lac) Lac Inr 1.0 Lac Aptt 35 sec 26 - 36 Lac DRVVT Screen Ratio 1.0 ratio 0.0 - 1.1 Lupus Anticoagulant Interpreta See Comment 40 Cardiolipin Igg,Igm,Iga AB 05/07/2013 Cardiolipin IgG 9.7 GPL 41 Cardiolipin IgM <4.0 MPL 42 Cardiolipin IgA <4.0 APL 43 Lupus Anticoagulant AB 05/07/2013 Prothrombin Time(Lac) 18.1 sec 44 Lac Inr 1.6 Lac PT Mix 1:1 14.5 sec 45 Lac Aptt 48 sec 26 - 36 Lac Aptt Mix 1:1 41 sec 26 - 36 46 Platelet Neutralization 62 Platelet Neutraliz Buffer Cont 63 sec 47 Lac DRVVT Screen Ratio 1.9 ratio 0.0 - 1.1 Lac DRVVT Mix Ratio 1.4 ratio 0.0 - 1.1 48 Dil Jose Miguel Viper Trae Confirm 0.9 ratio 0.0 - 1.1 49 Lup Hexthrombin Time (Bovine) 18 sec 15 - 23 50 Lupus Anticoagulant Interpreta See Comment 51 Lupus Anticoagulant Review By Azeem Joy <SEE NOTE> 52 Coagulation Factor II >77 % 75 - 145 53 Coagulation Factor V 76 % 70 - 165 54 Coagulation Factor VII Activit 81 % 65 - 180 55 Coagulation Factor X 70 % 70 - 150 56 Staclot LA Aptt 73 Staclot LA Delta 13 sec 0 - 7 57 Special Coagulation Interp Performed 58 Laboratory test 05/07/2013 Hepatitis C Antibody Nonreactive Nonreactive finding CBC Auto Diff 04/05/2013 White Blood Count 3.7 10^3/uL Low 4.8-10.8 Red Blood Count 4.43 10^6/uL 4.0-5.4 Hemoglobin 14.0 g/dL 14.0-18.0 Hematocrit 42 % 42-52 Mean Corpuscular Volume 95 fL High 80-94 Mean Corpuscular Hemoglobin 32 pg High 27-31 Mean Corpuscular HGB Conc 33 g/dL 31-36 Red Cell Distribution Width 13 % 10.5-15 Platelet Count 248 10^3/uL 150-450 Mean Platelet Volume 8 um3 7.4-10.4 Abs Neutrophils 1.7 10^3/uL 1.5-7.7 Abs Lymphocytes 1.3 10^3/uL 1.0-4.8 Abs Monocytes 0.5 10^3/uL 0-0.8 Abs Eosinophils 0.2 10^3/uL 0-0.6 Abs Basophils 0 10^3/uL 0-0.2 Abs Nucleated RBC 0 10^3/uL Granulocyte % 45.6 % 38-83 Lymphocyte % 34.7 % 25-47 Monocyte % 12.5 % High 1-9 Eosinophil % 6.2 % High 0-6 Basophil % 1.0 % 0-2 Nucleated Red Blood Cells % 0.1 Laboratory test finding 04/05/2013 Inr 1.65 High 0.85-1.06 Lipid Profile (Trig/Chol/HDL) 04/05/2013 Triglycerides 53 mg/dL 40-200 Cholesterol 158 mg/dL Less than 200 HDL Cholesterol 64 mg/dL High 40-60 59 Cholesterol/HDL Ratio 2.5 Average 1-4.44 LDL Cholesterol 83.4 Less Than 100 60 Laboratory test finding 04/05/2013 Erythrocyte Sed Rate 15 mm/Hr 0-40 Comp Metabolic Panel 04/05/2013 Sodium 136 mmol/L 133-145 Potassium 4.4 mmol/L 3.5-5.0 Chloride 99 mmol/L Low 101-111 Co2 Carbon Dioxide 29.0 mmol/L 22-32 Anion Gap 8.0 mmol/L 2-11 Glucose 88 mg/dL 70-100 Blood Urea Nitrogen 12 mg/dL 6-24 Creatinine 1.00 mg/dL 0.50-1.40 BUN/Creatinine Ratio 12.0 8-20 Calcium 9.0 mg/dL 8.1-9.9 Total Protein 6.2 g/dL 6.2-8.1 Albumin 3.7 g/dL 3.2-5.2 Globulin 2.5 g/dL 2-4 Albumin/Globulin Ratio 1.5 1-3 Total Bilirubin 0.9 mg/dL 0.4-1.5 Alkaline Phosphatase 47 U/L 30-110 Alt 22 U/L 14-54 Ast 26 U/L 12-42 Egfr Non- 74.8 >60 Egfr 96.1 >60 61 Laboratory test 04/05/2013 C Reactive Protein < 0.5 mg/dL Less than 0.5 finding Cardiolipin 02/17/2013 Cardiolipin IgG 7.6 GPL 62 Igg,Igm,Iga AB Cardiolipin IgM <4.0 MPL 63 Cardiolipin IgA <4.0 APL 64 Lupus Anticoagulant AB 02/17/2013 Prothrombin Time(Lac) 13.2 sec 65 Lac Inr 1.2 Lac Aptt 38 sec 26 - 36 Lac Aptt Mix 1:1 35 sec 26 - 36 66 Lac DRVVT Screen Ratio 1.2 ratio 0.0 - 1.1 Lac DRVVT Mix Ratio 1.1 ratio 0.0 - 1.1 67 Lup Hexthrombin Time (Bovine) 18 sec 15 - 23 68 Lupus Anticoagulant Interpreta See Comment 69 Lupus Anticoagulant Review By Azeem Cuellar <SEE NOTE> 70 Staclot LA Aptt 61 Staclot LA Delta 9 sec 0 - 7 71 Special Coagulation Interp Performed 72 Laboratory test finding 02/17/2013 PSA Diagnostic 6.474 ng/mL High 0- 4.000 73 PSA Free And Total 01/04/2013 PSA Total 6.9 ng/mL <=4.5 PSA Free 0.6 ng/mL PSA Free/Total 0.09 ratio 74 Vitamin B12 And Folate Serum 01/04/2013 Vitamin B12 438 pg/mL 180-914 Folate 6.9 ng/mL 2-16 Factor II (Prothrombin) 12/25/2012 Prothrombin 60426 Negative Negative Genoty Mutation Prothrombin [id number] Interp See Comment 75 Prothrombin Mutation Review By See Comment 76 Factor 5 Leiden Mutation 12/25/2012 Factor V Leiden Mutation Negative Negative Factor V Leiden Interpretation See Comment 77 Factor V Leiden Reviewed By See Comment 78 CBC Auto Diff 12/25/2012 White Blood Count 4.4 10^3/uL Low 4.8-10.8 Red Blood Count 4.25 10^6/uL 4.0-5.4 Hemoglobin 13.6 g/dL Low 14.0-18.0 Hematocrit 41 % Low 42-52 Mean Corpuscular Volume 97 fL High 80-94 Mean Corpuscular Hemoglobin 32 pg High 27-31 Mean Corpuscular HGB Conc 33 g/dL 31-36 Red Cell Distribution Width 13 % 10.5-15 Platelet Count 287 10^3/uL 150-450 Mean Platelet Volume 8 um3 7.4-10.4 Abs Neutrophils 2.4 10^3/uL 1.5-7.7 Abs Lymphocytes 1.2 10^3/uL 1.0-4.8 Abs Monocytes 0.5 10^3/uL 0-0.8 Abs Eosinophils 0.3 10^3/uL 0-0.6 Abs Basophils 0 10^3/uL 0-0.2 Abs Nucleated RBC 0 10^3/uL Granulocyte % 54.3 % 38-83 Lymphocyte % 27.8 % 25-47 Monocyte % 11.0 % High 1-9 Eosinophil % 6.4 % High 0-6 Basophil % 0.5 % 0-2 Nucleated Red Blood Cells % 0 Laboratory test finding 12/25/2012 Homocysteine 9 mcmol/L 79 PSA Screening 7.6 ng/mL High 0-4.0 80 Comp Metabolic Panel 12/25/2012 Sodium 141 mmol/L 133-145 Potassium 4.4 mmol/L 3.5-5.0 Chloride 103 mmol/L 101-111 Co2 Carbon Dioxide 33.0 mmol/L High 22-32 Anion Gap 5.0 mmol/L 2-11 Glucose 88 mg/dL 70-100 Blood Urea Nitrogen 12 mg/dL 6-24 Creatinine 1.10 mg/dL 0.50-1.40 BUN/Creatinine Ratio 10.9 8-20 Calcium 9.2 mg/dL 8.1-9.9 Total Protein 6.9 g/dL 6.2-8.1 Albumin 3.6 g/dL 3.2-5.2 Globulin 3.3 g/dL 2-4 Albumin/Globulin Ratio 1.1 1-3 Total Bilirubin 0.9 mg/dL 0.4-1.5 Alkaline Phosphatase 57 U/L 30-110 Alt 17 U/L 14-54 Ast 22 U/L 12-42 Egfr Non- 67.0 >60 Egfr 86.1 >60 81 Laboratory test 11/06/2010 Throat Culture Full NF 82, 83 finding Surgical Pathology 10/31/2010 Surgical Pathology 84 - <SEE NOTE> CBC With Manual Diff 12/09/2008 White Blood Count 5.0 CUMM 4.8-10.8 Red Cell Count 4.28 CUMM Low 4.6-6.2 Hemoglobin 14.1 g/dL 14.0-18.0 Hematocrit 41 % Low 42-52 Mean Corpuscular Volume 96 um3 High 80-94 Mean Corpuscular Hemoglob 33 pg High 27-31 Mean Corpuscular HGB Cone 34 g/dL 32-36 Redcell Distribution WDTH 13 % 10.5-15 Platelet Count 278 CUMM 150-450 Mean Platelet Volume 7.3 um3 Low 7.4-10.4 Polysegmented Neutrophil 42 % 38-83 Lymphocyte 39 % 25-47 Monocyte 13 % 0-13 Eosenophil 5 % 0-6 Atypical Lymph 1 % 0-6 Absolute Neutrophil Count 2.1 RBC Morphology NORMAL Iron & Iron Binding Capacity 12/09/2008 Iron Total 107 g/dL 45-182 Unsaturated Iron Binding 180 g/dL Total Iron Binding Capacity 287 g/dL 250-450 % Iron Saturation 37 % 15-55 Vitamin B12 And Folate Serum 12/09/2008 Vitamin B12 547 pg/mL 180-914 Folic Acid 6.5 NG/ML 2-16 Reticolocyte Count 12/09/2008 Reticulocyte Count 0.33 % Low 0.5-1.5 Corrected Retic 0.3 % Low 0.5-1.5 Retic Index 0.3 Mean Retic Volume 116.3 Immature Retic Fraction 0.22 RBC Retic Count 4.28 CUMM Low 4.6-6.2 Hematocrit For Retic Coun 41 % Low 42-52 CBC With Manual Diff 09/14/2008 White Blood Count 5.4 CUMM 4.8-10.8 Red Cell Count 4.24 CUMM Low 4.6-6.2 Hemoglobin 13.8 g/dL Low 14.0-18.0 Hematocrit 39 % Low 42-52 Mean Corpuscular Volume 93 um3 80-94 Mean Corpuscular Hemoglob 32 pg High 27-31 Mean Corpuscular HGB Cone 35 g/dL 32-36 Redcell Distribution WDTH 13 % 10.5-15 Platelet Count 267 CUMM 150-450 Mean Platelet Volume 7.3 um3 Low 7.4-10.4 Polysegmented Neutrophil 51 % 38-83 Lymphocyte 31 % 25-47 Monocyte 9 % 0-13 Eosenophil 9 % High 0-6 Absolute Neutrophil Count 2.7 RBC Morphology NORMAL Laboratory test finding 09/14/2008 Erythrocyte Sed Rate 10 MM/HR 0-20 CBC With Electronic Diff 09/08/2008 White Blood Count 4.0 CUMM Low 4.8- 10.8 Red Cell Count 4.32 CUMM Low 4.6-6.2 Hemoglobin 14.2 g/dL 14.0-18.0 Hematocrit 40 % Low 42-52 Mean Corpuscular Volume 93 um3 80-94 Mean Corpuscular Hemoglob 33 pg High 27-31 Mean Corpuscular HGB Cone 35 g/dL 32-36 Redcell Distribution WDTH 13 % 10.5-15 Platelet Count 256 CUMM 150-450 Mean Platelet Volume 7.8 um3 7.4-10.4 Gran % 47.8 % 38-83 Lymph % 34.5 % 25-47 Mononuclear % 10.3 % High 1-9 Eosinophil % 6.0 % 0-6 Basophil % 1.4 % 0-2 Abs Lymphs 1.4 1.0-4.8 Abs Mononuclear 0.4 0-0.8 Absolute Neutrophil Count 1.9 1.5-7.7 Abs Eosinophils 0.2 0-0.6 Abs Basophils 0.1 0-0.2 Lyme Western Blot 09/08/2008 Lyme Disease Igg Western Negative Negative 85 Specialty Blot Lyme Disease Igm Western Blot Negative Negative 86 Lyme Disease Interpretation . () 87 Laboratory test finding 09/08/2008 PSA,Diagnostic 2.84 NG/ML 0-4 88 Lipid Profile (Trig/Chol/HDL) 09/08/2008 Triglyceride 34 mg/dL Low 40-200 Cholesterol 145 mg/dL Less Than 200 89 High Density Lipoprotein 56 mg/dL 40-60 90 Cholesterol/HDL Ratio 2.59 AVERAGE 1-4.97 Low Density Lipoprotein 82 mg/dL Less Than 100 91 Urinalysis W/Microscopic 09/08/2008 Ua Color YELLOW Appearance-Urine CLEAR Specific [place]-Ur 1.021 1.010-1.030 Esterase-Urine NEGATIVE Negative Nitrite NEGATIVE Negative [id number] NEGATIVE Negative Protein-Urine NEGATIVE Negative PH-Urine 7.0 5-9 Blood-Urine NEGATIVE Negative Ketones-Urine NEGATIVE Negative Bilirubin-Ur NEGATIVE Negative Glucose-Urine NEGATIVE Negative WBC-Urine RARE 0-5 RBC-Urine NONE SEEN 0-2 Comp Metabolic Panel 09/08/2008 Sodium 137 mmol/L 135-145 Potassium 4.8 mmol/L 3.5-5.0 Chloride 102 mmol/L 101-111 Co2 (Carbon Dioxide) 30.0 mmol/L 22-32 Anion Gap 5.0 mmol/L 2-11 92 Glucose 85 mg/dL 70-100 93 BUN 10 mg/dL 6-24 Creatinine 1.10 mg/dL 0.50-1.40 One Over Creatinine 0.90 BUN/Creatinine Ratio 9.1 8-20 Calcium 8.7 mg/dL 8.1-9.9 94 Total Protein 6.1 GM/DL Low 6.2-8.1 Albumin 3.6 GM/DL 3.2-5.2 Globulin 2.5 GM/DL 2-4 Albumin/Globulin Ratio 1.4 1-3 Bilirubin Total 1.1 mg/dL 0.4-1.5 95 Alkaline Phosphatase 44 U/L 39-117 Alt (SGPT) 17 U/L 17-63 Ast (Sgot) 21 U/L 12-42 1 Because ethnic data is not always readily available, this report includes an eGFR for both -Americans and non- Americans. The National Kidney Disease Education Program (NKDEP) does not endorse the use of the MDRD equation for patients that are not between the ages of 18 and 70, are , have extremes of body size, muscle mass, or nutritional status, or are non- or non-. According to the National Kidney Foundation, irrespective of diagnosis, the stage of the disease is based on the level of kidney function: Stage Description GFR(mL/min/1.73 m(2)) 1 Kidney damage with normal or decreased GFR 90 2 Kidney damage with mild decrease in GFR 60-89 3 Moderate decrease in GFR 30-59 4 Severe decrease in GFR 15-29 5 Kidney failure <15 (or dialysis) 2 Serum levels of PSA measured using the [employer] DXI Hybritech immunoassay should not be interpreted as absolute evidence of the presence or absence of disease. The PSA value should be used in conjunction with other pertinent clinical diagnostic procedures. The values obtained with different assay methods or kits cannot be used interchangeably. 3 SEE RESULT BELOW Name: COLT KOEHLER : [address]: Ning Leyva MD Acct: [id number] Unit: [id number] AGE: 71 Location: [facility] Re04/15/17 SEX: M Status: REG REF SPEC: [id number] NIA: 04/15/17-[address] [facility] [address]: Sunny Leyva MD REQ: [id number] RECD: 04/15/17 STATUS: COMP _ SOURCE: STOOL SPDESC: ORDERED: C. diff PCR/S, Fecal Lactoferr/R, O P: Thierry/Monico/R Procedure Result Reported Site Stool Specimen Description Final 04/15/17- 1948 ML Stool Color Brown Stool Form Semi-formed Stool Consistency Soft C. difficile PCR Final 04/15/17- 2109 ML Organism 1 027 Presumptive NEGATIVE Organism 2 Toxigenic C.diff NEGATIVE Fecal Lactoferrin (Stool WBC) Final 04/16/17- 0926 ML Fecal Lactoferrin Negative by Immunoassay TEST LIMITATIONS: Assay detects elevated levels of lactoferrin released from fecal leukocytes as a marker of intestinal inflammation. The test may not be appropriate in immunocompromised persons. Fecal samples from breast fed infants should not be used with this assay. O P: Giardia/Cryptospor Screen Final 04/16/17- 927 ML Organism 1 Neg Cryptosporidium/Giardia Giardia and cryptosporidium antigen testing performed by enzyme immunoassay. If patient is immunocompromised or has traveled to or is from a developing country, a full ova and parasite exam with microscopic (OPMIC) is recommended. All samples will be held one month in case full ova and parasite testing is requested. Contact the Microbiology Department CONTINUED ON NEXT PAGE * ML=Testing performed at Main Lab DEPARTMENT OF PATHOLOGY, [address] [place] [address] Best Hendrix M.D. Director [facility] # [id number] Patient: COLT KOEHLER [id number] (Continued) Specimen: [id number] Collected: 04/15/17-1014 Received: 04/15/17-1827 (Continued) Procedure Result Reported Site O P: Giardia/Cryptospor Screen Final (continued) 04/16/17927 at [phone]. TEST LIMITATIONS: As with all diagnostic procedures, the results obtained should be used in conjunction with other clinical information available the physician, including confirmation by another method. Negative results can occur in samples containing antigen below lower limits of detection of the assay. One negative specimen does not rule out the possibility of a parasitic infection. To improve detection it is recommended that three specimens be collected on separate days over a period of not more than seven days. The use of colonic washes, aspirates or other diluted sample types has not been established and could affect the performance of the assay. Stool samples contaminated with an oily or particulate base (eg. Barium, mineral oil etc.) could interfere with the test and are not recommended. * ML - MAIN LAB ([facility]) . END OF REPORT * ML=Testing performed at Main Lab DEPARTMENT OF PATHOLOGY, [address] [place] [address] Best Hendrix M.D. Director [facility] # [id number] 4 REFERENCE VALUE <=50.0 (Normal) Test Performed by: [facility] [address] [place] [address] 5 [id number] SEE RESULT BELOW Name: COLT KOEHLER : [address]: Garcia Antoine MD Acct: [id number] Unit: [id number] AGE: 71 Location: [facility] Re09/12/16 SEX: M Status: DEP [facility] SPEC: [id number] NIA: 09/12/16-[address]: Garcia Antoine MD REQ: [id number] RECD: 09/12/16 STATUS: SOUT _ ORDERED: Decal, LEVEL 2, LEVEL 3 COMMENTS: [id number] FINAL DIAGNOSIS 1. Wrist, right, posterior interosseous nerve, excision: -- Benign neurovascular tissue. 2. Wrist, right, proximal row carpal bones, resection: -- Severe degenerative osteoarthritic changes. 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 GROSS DESCRIPTION 1. The specimen is received in formalin labeled, Right Wrist Posterior Interosseous Nerve, and consists of a 2.2 by up to 0.4 x 0.3 cm yellow-white fibrofatty soft tissue fragment. The specimen is inked for orientation 0.3 cm from each end, is for cross-section analysis and the specimen is entirely submitted in one cassette; entirely submitted in one cassette. 2. The specimen is received in formalin labeled, Right Wrist Proximal Row Carpal Bones, and consists of a 5.3 x 3.0 by up to 1.6 cm aggregate of npqttw-[id number]-cxww irregular bone fragments. Within the aggregate is a 2.5 x 1.8 by up to 1.5 cm yellow-white shaggy scaphoid bone with extensive multi-surface eburnation and nodular edges. The lunate bone is highly fragmented. The largest fragment shows resendiz-white rubbery articular surface with shaggy to nodular edges. The triquetrum measures 1.8 x 1.2 x 1.2 cm with yellow-white focally bosselated articular surface and shaggy to nodular edges. Certified [employer]igator sections are submitted in one cassette following decalcification. CONTINUED ON NEXT PAGE * ML=Testing performed at Main Lab DEPARTMENT OF PATHOLOGY, [address] [place] [address] Best Hendrix M.D. Director [facility] # [id number] RUN DATE: 09/17/16 [facility] LAB LIVE PAGE 2 Patient: MANDEEPCOLT [id number] (Continued) MICROSCOPIC DESCRIPTION (Continued) MICROSCOPIC DESCRIPTION Signed (signature on file) Best Hendrix MD 1446 END OF REPORT * ML=Testing performed at Main Lab DEPARTMENT OF PATHOLOGY, [address] [place] [address] Best Hendrix M.D. Director [facility] # [id number] 7 Serum levels of PSA measured using the [employer] DXI Hybritech immunoassay should not be interpreted as absolute evidence of the presence or absence of disease. The PSA value should be used in conjunction with other pertinent clinical diagnostic procedures. The values obtained with different assay methods or kits cannot be used interchangeably. 8 Serum levels of PSA measured using the [employer] DXI Hybritech immunoassay should not be interpreted as absolute evidence of the presence or absence of disease. The PSA value should be used in conjunction with other pertinent clinical diagnostic procedures. The values obtained with different assay methods or kits cannot be used interchangeably. 9 Serum levels of PSA measured using the [employer] DXI Hybritech immunoassay should not be interpreted as absolute evidence of the presence or absence of disease. The PSA value should be used in conjunction with other pertinent clinical diagnostic procedures. The values obtained with different assay methods or kits cannot be used interchangeably. 10 FASTING 11 Desirable <150 Borderline high 150-199 High 200-499 Very High >500 12 Desirable <200 Borderline high 200-239 High >239 13 Low <40 Desirable: 40-60 High: >60 14 Desirable: <100 mg/dL Near Optimal: 100-129 mg/dL Borderline High: 130-159 mg/dL High: 160-189 mg/dL Very High: >189 mg/dL 15 Acute inflammation: >10.00 16 Serum levels of PSA measured using the [employer] DXI Hybritech immunoassay should not be interpreted as absolute evidence of the presence or absence of disease. The PSA value should be used in conjunction with other pertinent clinical diagnostic procedures. The values obtained with different assay methods or kits cannot be used interchangeably. 17 Because ethnic data is not always readily available, this report includes an eGFR for both -Americans and non- Americans. The National Kidney Disease Education Program (NKDEP) does not endorse the use of the MDRD equation for patients that are not between the ages of 18 and 70, are , have extremes of body size, muscle mass, or nutritional status, or are non- or non-. 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 ADDITIONAL INFORMATION CDC criteria require >=5 bands for IgG or >=2 bands for IgM for the Immunoblot to be considered positive. Bands (e.g.,p41) may be detected in patients without Lyme disease, and patterns not meeting the CDC criteria should be interpreted with caution. Immunoblot should be ordered only on specimens that are positive or equivocal by a FDA-licensed Lyme disease antibody screening test (e.g., EIA). Test Performed by: [place] [address] Supervisor Diagnostic: Gilberto Carballo II, M.D., Ph.D. 22 Not diagnostic. Supplemental testing ordered by reflex. Test Performed by: [place] [address] Supervisor Diagnostic: Gilberto Carballo II, M.D., Ph.D. 23 Acute inflammation: >10.00 24 Serum levels of PSA measured using the [employer] DXI Hybritech immunoassay should not be interpreted as absolute evidence of the presence or absence of disease. The PSA value should be used in conjunction with other pertinent clinical diagnostic procedures. The values obtained with different assay methods or kits cannot be used interchangeably. 25 Serum levels of PSA measured using the [employer] DXI Hybritech immunoassay should not be interpreted as absolute evidence of the presence or absence of disease. The PSA value should be used in conjunction with other pertinent clinical diagnostic procedures. The values obtained with different assay methods or kits cannot be used interchangeably. 26 Serum levels of PSA measured using the [employer] DXI Hybritech immunoassay should not be interpreted as absolute evidence of the presence or absence of disease. The PSA value should be used in conjunction with other pertinent clinical diagnostic procedures. The values obtained with different assay methods or kits cannot be used interchangeably. 27 Consistent with early infection with Borrelia burgdorferi. A new serum specimen should be submitted in 14-21 days to demonstrate seroconversion of IgG. IgM blot criteria is of diagnostic utility only during the first 4 weeks of early Lyme disease. CDC criteria require >=5 bands for IgG or >=2 bands for IgM for the Immunoblot to be considered positive. Bands (e.g.,p41) may be detected in patients without Lyme disease, and patterns not meeting the CDC criteria should be interpreted with caution. Immunoblot should be ordered only on specimens that are positive or equivocal by a FDA-licensed Lyme disease antibody screening test (e.g., EIA). Test Performed by: [place] [address] Supervisor Diagnostic: Santhosh Pompa III, M.D. 28 Test Performed by: [place] [address] Supervisor Diagnostic: Santhosh Pompa III, M.D. 29 Acute inflammation: >10.00 30 Test Performed by: [place] [address] Supervisor Diagnostic: Santhosh Pompa III, M.D. 31 -- REFERENCE VALUE -- 25-HYDROXY D TOTAL (D2+D3) Optimum levels in the healthy population are 20-50, patients with bone disease may benefit from higher levels within this range. Test Performed by: [facility] - [address] [address] Supervisor Diagnostic: Santhosh Pompa III, M.D. 32 Because ethnic data is not always readily available, this report includes an eGFR for both -Americans and non- Americans. The National Kidney Disease Education Program (NKDEP) does not endorse the use of the MDRD equation for patients that are not between the ages of 18 and 70, are , have extremes of body size, muscle mass, or nutritional status, or are non- or non-. According to the National Kidney Foundation, irrespective of diagnosis, the stage of the disease is based on the level of kidney function: Stage Description GFR(mL/min/1.73 m(2)) 1 Kidney damage with normal or decreased GFR 90 2 Kidney damage with mild decrease in GFR 60-89 3 Moderate decrease in GFR 30-59 4 Severe decrease in GFR 15-29 5 Kidney failure <15 (or dialysis) 33 Please note: The following may produce a false positive D Dimer test: - Rheumatoid factor greater than 60 IU/ml - Plasma hemoglobin greater than 0.05 gm/dl - Bilirubin greater than 50 mg/dl - Lipids greater than 1000 mg/dl - FDP greater than 20 ug/ml 34 Serum levels of PSA measured using the [employer] DXI Hybritech immunoassay should not be interpreted as absolute evidence of the presence or absence of disease. The PSA value should be used in conjunction with other pertinent clinical diagnostic procedures. The values obtained with different assay methods or kits cannot be used interchangeably. 35 Serum levels of PSA measured using the [employer] DXI Hybritech immunoassay should not be interpreted as absolute evidence of the presence or absence of disease. The PSA value should be used in conjunction with other pertinent clinical diagnostic procedures. The values obtained with different assay methods or kits cannot be used interchangeably. 36 Please note: The following may produce a false positive D Dimer test: - Rheumatoid factor greater than 60 IU/ml - Plasma hemoglobin greater than 0.05 gm/dl - Bilirubin greater than 50 mg/dl - Lipids greater than 1000 mg/dl - FDP greater than 20 ug/ml 37 Please note: The following may produce a false positive D Dimer test: - Rheumatoid factor greater than 60 IU/ml - Plasma hemoglobin greater than 0.05 gm/dl - Bilirubin greater than 50 mg/dl - Lipids greater than 1000 mg/dl - FDP greater than 20 ug/ml 38 Serum levels of PSA measured using the [employer] DXI Hybritech immunoassay should not be interpreted as absolute evidence of the presence or absence of disease. The PSA value should be used in conjunction with other pertinent clinical diagnostic procedures. The values obtained with different assay methods or kits cannot be used interchangeably. 39 -- REFERENCE VALUE -- 10.3 - 12.8 40 No evidence of a lupus-like anticoagulant based on results of Prothrombin Time (PT), Activated Partial Thromboplastin Time (APTT), and Dilute Russells Viper Venom Time (DRVVT). Interpretation not reviewed by physician. Test Performed by: [place] [address] Supervisor Diagnostic: Santhosh Pompa III, M.D. 41 -- REFERENCE VALUE -- <10.0 (Negative) 42 -- REFERENCE VALUE -- <10.0 (Negative) 43 -- REFERENCE VALUE -- <10.0 (Negative) Test Performed by: [place] [address] Supervisor Diagnostic: Santhosh Pompa III, M.D. 44 -- REFERENCE VALUE -- 10.3 - 12.8 45 -- REFERENCE VALUE -- 10.3 - 12.8 Test Performed by: [place] [address] Supervisor Diagnostic: Santhosh Pompa III, M.D. 46 Test Performed by: [place] [address] Supervisor Diagnostic: Santhosh Pompa III, M.D. 47 Test Performed by: [place] [address] Supervisor Diagnostic: Santhosh Pompa III, M.D. 48 Test Performed by: [place] [address] Supervisor Diagnostic: Santhosh Pompa III, M.D. 49 Test Performed by: [address] [place] [address] Supervisor Diagnostic: Santhosh Pompa III, M.D. 50 Test Performed by: [facility] - [address] [address] Supervisor Diagnostic: Santhosh Pompa III, M.D. 51 REVISED RESULTS IMPRESSION: Probable lupus-like anticoagulant (LAC). Suggest clinical correlation and, if indicated, consider future follow-up study (at three months' or greater time interval) to assess lupus anticoagulant (LAC) persistence. COMMENTS: Prolonged prothrombin time (PT) which is borderline inhibited is consistent with factor deficiency. Clinical correlation is recommended. Factor assays are normal (factor II, V, VII and X). Therefore, a specific factor deficiency does not adequately explain the prolongation of the PT. The factor II assay is inhibited likely due to the lupus anticoagulant. Prolonged and inhibited activated partial thromboplastin time (APTT) which fails to improve with addition of excess phospholipid (negative platelet neutralization procedure (PNP)) is not suggestive of a lupus-like anticoagulant (LAC). Prolonged and inhibited dilute Jose Miguel viper venom time (DRVVT) (screen and mix ratios) which fails to improve with addition of excess phospholipid (confirm ratio) is also not consistent with the presence of a LAC. In a 1:1 mixing study with normal plasma, the Staclot APTT is prolonged, reflecting inhibition. Addition of hexagonal phase phospholipid significantly shortens the clotting time (Staclot delta), consistent with presence of a lupus anticoagulant in the context of available data. The anticardiolipin antibodies are negative. REVISED REPORT, Previously reported as: IMPRESSION: Probable lupus-like anticoagulant (LAC). Suggest clinical correlation and, if indicated, consider future follow-up study (at three months' or greater time interval) to assess lupus anticoagulant (LAC) persistence. COMMENTS: Prolonged prothrombin time (PT) which is borderline inhibited is consistent with factor deficiency. Clinical correlation is recommended. Factor assays are normal (factor II, V, VII and X). Therefore, a specific factor deficiency does not adequately explain the prolongation of the PT. Prolonged and inhibited activated partial thromboplastin time (APTT) which fails to improve with addition of excess phospholipid (negative platelet neutralization procedure (PNP)) is not suggestive of a lupus-like anticoagulant (LAC). Prolonged and inhibited dilute Jose Miguel viper venom time (DRVVT) (screen and mix ratios) which fails to improve with addition of excess phospholipid (confirm ratio) is also not consistent with the presence of a LAC. In a 1:1 mixing study with normal plasma, the Staclot APTT is prolonged, reflecting inhibition. Addition of hexagonal phase phospholipid significantly shortens the clotting time (Staclot delta), consistent with presence of a lupus anticoagulant in the context of available data. The anticardiolipin antibodies are negative. (Reported 05/12/2013 16:17) --- 05/14/13 1214 --- LAC Interp previously reported as: See Comment IMPRESSION: Probable lupus-like anticoagulant (LAC). Suggest clinical correlation and, if indicated, consider future follow-up study (at three months' or greater time interval) to assess lupus anticoagulant (LAC) persistence. COMMENTS: Prolonged prothrombin time (PT) which is borderline inhibited is consistent with factor deficiency. Clinical correlation is recommended. Factor assays are normal (factor II, V, VII and X). Therefore, a specific factor deficiency does not adequately explain the prolongation of the PT. Prolonged and inhibited activated partial thromboplastin time (APTT) which fails to improve with addition of excess phospholipid (negative platelet neutralization procedure (PNP)) is not suggestive of a lupus-like anticoagulant (LAC). Prolonged and inhibited dilute Jose Miguel viper venom time (DRVVT) (screen and mix ratios) which fails to improve with addition of excess phospholipid (confirm ratio) is also not consistent with the presence of a LAC. In a 1:1 mixing study with normal plasma, the Staclot APTT is prolonged, reflecting inhibition. Addition of hexagonal phase phospholipid significantly shortens the clotting time (Staclot delta), consistent with presence of a lupus anticoagulant in the context of available data. The anticardiolipin antibodies are negative. Mark Calderon M.D. Test Performed by: [address] [address] Supervisor Diagnostic: Santhosh Pompa III, M.D. 53 Test Performed by: [facility] [address] [place] [address] Supervisor Diagnostic: Santhosh Pompa III, M.D. 54 Test Performed by: [place] [address] [place] [address] Supervisor Diagnostic: Santhosh Pompa III, M.D. 55 Test Performed by: [address] [address] Supervisor Diagnostic: Santhosh Pompa III, M.D. 56 Test Performed by: [address] [address] Supervisor Diagnostic: Santhosh Pompa III, M.D. 57 Test Performed by: [address] [address] Supervisor Diagnostic: Santhosh Pompa III, M.D. 58 Test Performed by: [address] [address] Supervisor Diagnostic: Santhosh Pompa III, M.D. 59 HDL Interpretation: Undesirable: High Risk: Less than 40 mg/dL Desirable: Low Risk: Greater than 60 mg/dL 60 LDL Interpretation: Low Risk Optimal Level: LDL Less than 100 mg/dL Near or Above Optimal: LDL 100-129 mg/dL Borderline High Risk: LDL 130-159 mg/dL High Risk: LDL 160-189 mg/dL Very High Risk: LDL Greater than 189 mg/dL 61 Because ethnic data is not always readily available, this report includes an eGFR for both -Americans and non- Americans. The National Kidney Disease Education Program (NKDEP) does not endorse the use of the MDRD equation for patients that are not between the ages of 18 and 70, are , have extremes of body size, muscle mass, or nutritional status, or are non- or non-. According to the National Kidney Foundation, irrespective of diagnosis, the stage of the disease is based on the level of kidney function: Stage Description GFR(mL/min/1.73 m(2)) 1 Kidney damage with normal or decreased GFR 90 2 Kidney damage with mild decrease in GFR 60-89 3 Moderate decrease in GFR 30-59 4 Severe decrease in GFR 15-29 5 Kidney failure <15 (or dialysis) 62 -- REFERENCE VALUE -- <10.0 (Negative) 63 -- REFERENCE VALUE -- <10.0 (Negative) 64 -- REFERENCE VALUE -- <10.0 (Negative) Test Performed by: [address] [address] Supervisor Diagnostic: Santhosh Pompa III, M.D. 65 -- REFERENCE VALUE -- 10.3 - 12.8 66 Test Performed by: [place] [address] Supervisor Diagnostic: Santhosh Pompa III, M.D. 67 Test Performed by: [place] [address] Supervisor Diagnostic: Santhosh Pompa III, M.D. 68 Test Performed by: [place] [address] Supervisor Diagnostic: Santhosh Pompa III, M.D. 69 IMPRESSION: Data are equivocal for lupus anticoagulant (LAC). Consider future follow-up repeat testing. COMMENTS: Mixing studies of prolonged activated partial thromboplastin time (APTT) and dilute Jose Miguel viper venom time (DRVVT) provide no evidence of inhibition, and therefore no evidence of lupus anticoagulant (LAC). In a 1:1 mixing study with normal plasma, the Staclot APTT is marginally prolonged, providing equivocal evidence of inhibition. Addition of hexagonal phase phospholipid marginally shortens the clotting time (Staclot delta) providing equivocal evidence for presence of a lupus anticoagulant in the context of available data. 70 Olayinka Worley M.D. Test Performed by: [place] [address] Supervisor Diagnostic: Santhosh Pompa III, M.D. 71 Test Performed by: [place] [address] Supervisor Diagnostic: Santhosh Pompa III, M.D. 72 Test Performed by: [place] [address] Supervisor Diagnostic: Santhosh Pompa III, M.D. 73 Serum levels of PSA measured using the [employer] DXI Hybritech immunoassay should not be interpreted as absolute evidence of the presence or absence of disease. The PSA value should be used in conjunction with other pertinent clinical diagnostic procedures. The values obtained with different assay methods or kits cannot be used interchangeably. 74 When total PSA is in the range of 4.0-10.0 ng/mL, a free PSA / Total PSA ratio of < or=0.10 indicates 49 to 65 % risk of prostate cancer depending on age; and a free PSA / total PSA ratio of > 0.25 indicates a 9 to 16% risk of prostate cancer depending on age. The testing method is an electrochemiluminescence assay manufactured by [employer] and performed on the Modular or Jerry system. Values obtained with different assay methods or kits may be different and cannot be used interchangeably. Test results cannot be interpreted as absolute evidence for the presence or absence of malignant disease. Test Performed by: [place] [address] Supervisor Diagnostic: Santhosh Pompa III, M.D. 75 This individual DOES NOT have the Prothrombin [id number] mutation. Although the Prothrombin [id number] mutation is absent, the individual may have other genetic and environmental risk factors for thrombosis. If clinically indicated, suggest Coagulation Consultation 74791 (Thrombophilia Profile) to complete the evaluation for an inherited or acquired thrombosing disorder (i.e., thrombophilia). Consider genetic consultation and counseling of potentially affected family members regarding laboratory testing. This test is a direct mutation analysis using PCR amplification, signal generation and release by cleavage of sequence specific alleles ([employer], [employer], [place], [place]). 76 RESULT: PEPE Wang Test Performed by: [place] [address] Supervisor Diagnostic: Santhosh Pompa III, M.D. 77 This individual DOES NOT have the factor V Leiden (R506Q) mutation. Although the factor V Leiden mutation is absent, the individual may have other genetic and environmental risk factors for thrombosis. If clinically indicated, suggest Coagulation Consultation 02149 (Thrombophilia Profile) to complete the evaluation for an inherited or acquired thrombosing disorder (i.e., thrombophilia). This test is a direct mutation analysis using PCR amplification, signal generation and release by cleavage of sequence specific alleles ([employer], [employer], [place], [place]). 78 RESULT: PEPE Wang Test Performed by: [place] [address] Supervisor Diagnostic: Santhosh Pompa III, M.D. 79 -- REFERENCE VALUE -- <=13 (Fasting) Test Performed by: [facility] [address] [address] Supervisor Diagnostic: Santhosh Pompa III, M.D. 80 Serum levels of PSA measured using the [employer] DXI Hybritech immunoassay should not be interpreted as absolute evidence of the presence or absence of disease. The PSA value should be used in conjunction with other pertinent clinical diagnostic procedures. The values obtained with different assay methods or kits cannot be used interchangeably. 81 Because ethnic data is not always readily available, this report includes an eGFR for both -Americans and non- Americans. The National Kidney Disease Education Program (NKDEP) does not endorse the use of the MDRD equation for patients that are not between the ages of 18 and 70, are , have extremes of body size, muscle mass, or nutritional status, or are non- or non-. According to the National Kidney Foundation, irrespective of diagnosis, the stage of the disease is based on the level of kidney function: Stage Description GFR(mL/min/1.73 m(2)) 1 Kidney damage with normal or decreased GFR 90 2 Kidney damage with mild decrease in GFR 60-89 3 Moderate decrease in GFR 30-59 4 Severe decrease in GFR 15-29 5 Kidney failure <15 (or dialysis) 82 TONSILS 83 NORMAL THROAT JOSELUIS 84 ---- RUN DATE: 11/02/10 [facility] NMI LIVE PAGE 1 RUN TIME: 1257 Specimen Inquiry RUN USER: INTERFACE -- Name: COLT KOEHLER Status: REG REF Re10/31/10 Age/Sex: 65/M Unit#: [id number] Location: [facility]. : 47 -- Specimen: [id number] SOUT Spec Date: 10/31/[address]: Guru jones MD Spec Type: SURGICAL P Received: 11/01/10 Copies to: Sunny adams MD SPECIMEN LESION LEFT SHOULDER HISTORY CLINICAL INFORMATION: Lesion present several years, change in color, open ed up GROSS DESCRIPTION The specimen is received in formalin labelled Colt Koehler, Left Shoulder, and consists of an unoriented skin ellipse measuring 0.8 x 0.5 x 0.5 cm. The specimen is inked, serially sectioned, and submitted entirely in one cassette. DIAGNOSIS Skin, left shoulder, excision: A. Basal cell carcinoma, superficial type. B. Basal cell carcinoma is focally transected at the unoriented lateral margin of resection. C. Deep margins are clear. Signed Electronically by: BEST HENDRIX MD 11/02/10 1254 -- -- DEPARTMENT OF PATHOLOGY, [address] [place] [address] [facility] Permit #[id number] Best Hendrix M.D. Director Fannie Cao M.D. Supervisor [employer] Dir hai -- 85 IgG band(s) ([place]): p41 86 IgM band(s) ([place]): NONE DETECTED 87 Specific serologic response to B. burgdorferi is not detected, but cannot rule out early infection during which low or undetectable antibody levels to B. burgdorferi may be present. If clinically indicated, a new serum specimen should be submitted in 7-14 days. Western blot should only be ordered on specimens that are positive or equivocal by a FDA-licensed Lyme disease antibody screening test (e.g., EIA). CDC criteria require >=5 bands for IgG or >=2 bands for IgM for the Western blot to be considered positive. Test Performed by: [facility] Dpt of Lab Med and Pathology [address] [place] [address] Supervisor Diagnostic: Santhosh Pompa III, M.D. 88 * SERUM LEVELS OF PSA MEASURED USING THE [employer] C[employer]ITA [employer] IMMUNOASSAY SHOULD NOT BE INTERPRETED ABSOLUTE EVIDENCE OF THE PRESENCE OR ABSENCE OF DISEASE. THE PSA VALUE SHOULD BE USED IN CONJUNCTION WITH OTHER PERTINENT CLINICAL DIAGNOSTIC PROCEDURES. 89 CHOLESTEROL INTERPRETATION: Desirable: Less than 200 MG/DL Borderline-High Risk: 200-239 MG/DL High-Risk: 240 MG/DL and over 90 HDL INTERPRETATION: Undesirable: High Risk: Less than 40 MG/DL Desirable: Low Risk: Greater than 60 MG/DL 91 LDL INTERPRETATION: Low Risk Optimal Level: LDL Less than 100 MG/DL Near or Above Optimal: LDL 100-129 MG/DL Borderline High Risk: LDL 130-159 MG/DL High Risk: LDL 160-189 MG/DL Very High Risk: LDL Greater than 189 MG/DL 92 Anion gap measurement may be of limited value in the presence of any alkalosis, especially in a combined acid base disorder. . 93 Note change in reference range as of 11/19/07. The change was based on recommendations from the [place] [employer]. 94 Please note change in reference range effective 07 . 95 A metabolite of Naproxen, O-desmethylnaproxen, has been shown to interfere with the [place] method for measuring total bilirubin. Samples from patients who have taken Naproxen have shown spurious elevation in total bilirubin levels. Procedures Date CPT Code Description Status 05/26/2017 04709 EKG Tracing & Interpretation Completed 03/10/2017 67118 Removal Skin Tags Up To 15 Completed 12/31/2016 78479 Inject Tendon Sheath Or Ligament Aponeurosis Eg Plantar Completed Fascia 09/12/2016 83945 Transection/Avulsion, Spinal Nerve, Extradural Completed 09/12/2016 74678 Transection/Avulsion, Spinal Nerve, Extradural Completed 09/12/2016 51121 Carpal Tunnel Release Completed 09/12/2016 16695 Radial Styloidectomy Completed 09/12/2016 09959 Carpectomy ALL Bones Proximal Row Completed 09/12/2016 48624 Carpectomy ALL Bones Proximal Row Completed 08/07/2016 79036 Holter Monitor Review (24 hr)dr romeo & fabiana Completed only 08/05/2016 13667 ECG Monitor/Recording W/Visual Superimposition Scanning Completed 07/31/2016 74277 ECHO Transthoracic, Real-Time 2D With Doppler And Color Completed Flow 12/14/2013 57442 EKG Tracing & Interpretation Completed 10/15/2007 Colonoscopy Completed Encounters Type Date Location Provider CPT E/M Dx Office Visit 04/11/2017 [facility] [place] Watt M.D. 14991 M25.551 2:00p Of C.aPt M16.11 Office Visit 04/04/2017 4:00p [facility] Internal Medicine Sunny [place], [address] R19.4 - [place] Matias Grullon,FACP L82.0 M25.551 Z23 Office Visit 04/02/2017 11:30a [facility] [place] [address] M19.031 C.M.A. G56.01 G56.21 Office Visit 03/10/2017 2:40p [facility] [place] [address] L82.1 L57.0 D18.01 B35.1 B35.3 I83.92 L91.8 Z78.9 L53.8 R23.8 S00.202A S00.80xA Office Visit 12/31/2016 2:15p [facility] [place] [address] M19.031 C.M.A. G56.01 G56.21 M65.331 Office Visit 09/03/2016 2:00p [facility] [place] [address] M19.031 C.M.A. G56.01 G56.21 Office Visit 2016 2:15p [facility] [place] [address] M19.031 C.M.A. G56.01 Office Visit 07/24/2016 4:20p [facility] Internal Medicine Sunny Ley[place], [address] G45.9 - [place] Matias Grullon,FACP M19.031 M54.5 Office Visit 07/03/2016 2:00p [facility] [place] [address] M11.231 C.M.A. M19.031 Office Visit 06/21/2016 3:00p [facility] [place] [address] M19.031 C.M.A. M71.331 Office Visit 06/10/2016 4:20p [facility] Internal Sunny Ley[place], 88824 M71.331 Medicine - [place] Matias Grullon,FACP Office Visit 03/12/2016 9:50a [facility] Internal Sunny Leyva, 84308 M25.551 Medicine - [place] Grullon,FACP L30.9 Office Visit 01/22/2016 2:40p [facility] Internal Medicine Sunny Le[place], 22094 M46.1 - [place] Matias Grullon,FACP M25.551 Z23 Office Visit 05/15/2015 2:40p [facility] [place] [address] L40.9 Medicine - [address] Office Visit 03/17/2015 3:40p [facility] Internal Sunny Le[place], 82694 T84.84xS Medicine - [address] [address] M.Wanda,FACP Office Visit 12/19/2014 2:50p [facility] Internal Sunny Ley[place], 79160 A69.20 Medicine - [address] Mitchel,FACP R53.83 Office Visit 12/06/2014 10:10a [facility] Internal Medicine Sunny Leyva, 45637 088.81 - Mar[place] Grullon,FACP 719.48 Office Visit 08/25/2014 11:30a [facility] Internal Sunny Ley[place], 79655 478.11 Medicine - [address] Mitchel,FACP 088.81 Office Visit 08/05/2014 3:30p [facility] Internal Medicine - Guru Teran, JOHNY [address] Office Visit 04/12/2014 2:30p [facility] Internal Medicine - Guru Teran, JOHNY [address] 719.46 [place] 729.5 Office Visit 12/23/2013 11:00a [facility] Internal Medicine - Guru Teran, JOHNY [address]89 088.81 [place] Office Visit 12/14/2013 1:00p [facility] Internal Medicine - Guru Teran, JOHNY 97792 088.81 [place] 786.50 Office Visit 12/09/2013 10:30a [facility] Internal Medicine - Guru Teran, JOHNY [address]166 919.4 [place] 453.52 Office Visit 11/30/2013 10:30a [facility] Internal Medicine - Guru Teran, JOHNY [address] 724.2 [place] Office Visit 04/16/2013 3:00p [facility] Internal Medicine - [place] Le[place], 06959 V70.0 Maricruz Grullon,FACP 453.52 790.93 V73.99 719.43 Office Visit 02/12/2013 9:40a [facility] Internal Medicine Sunny Leyva, 6[address] 453.40 - Maricruz Grullon,FACP 790.93 719.45 Office Visit 01/22/2013 8:30a [facility] Internal Medicine Nubia Cerna, N.P. 828[address] 459.10 - [place] Office Visit 01/04/2013 9:10a [facility] Internal Medicine Sunny Leyva, 93087 173.61 - Maricruz Grullon,FACP 790.93 281.1 v04.81 Office Visit 12/24/2012 2:00p [facility] Internal Medicine Sunny Leyva, 61522 453.40 - Maricruz Grullon,FACP 786.2 285.8 V76.44 Office Visit 12/10/2012 12:00p [facility] Internal Medicine Darci Santiago, 57607 453.40 - Maric[place] Grullon Office Visit 12/08/2012 1:20p [facility] Internal Medicine Darci Santiago, 90564 719.46 - Maricruz Grullon 709.9 Office Visit 02/27/2012 2:40p [facility] Internal Medicine Darci Santiago, 89126 784.0 - Maricruz Grullon V04.81 V03.82 Office Visit 01/03/2012 10:00a [facility] Internal Medicine Darci Santiago, 82785 466.0 - Maricruz Grullon Office Visit 12/09/2011 10:10a [facility] Internal Medicine Sunny Leyva, 22552 466.0 - Maricruz Grullon,FACP Office Visit 10/28/2011 10:50a [facility] Internal Medicine Sunny Leyva, 66030 455.9 - Maricruz Grullon,FACP Office Visit 08/30/2011 11:40a [facility] Internal Medicine Sunny Leyva, 17931 054.19 - Maricruz Grullon,FACP 846.1 Office Visit 08/29/2011 8:45a [facility] Myrick M.D. 98664 726.5 C.M.A. 719.45 Office Visit 08/02/2011 12:15p [facility] Internal Medicine Nubia Cerna, N.P. 92888 719.45 - [place] V06.1 691.8 Office Visit 03/05/2011 11:00a DO Not Use [employer] At [place], 35337 V70.0 Felicitas Dennison.,[facility] 600.00 443.0 V04.81 Office Visit 11/06/2010 11:40a DO Not Use [employer] [facility] At [facility], [address] 462 Felicitas Wright.Wanda,[facility] Office Visit 10/12/2010 1:40p DO Not Use [employer] [facility], [address] 911.4 [place]aus[place]teresa Wright.Emanuel.,[facility] 110.1 238.2 V05.4 V05.8 Office Visit 08/30/2010 9:45a DO Not Use [employer] [facility] At [facility], N.P. [address] [facility] Office Visit 12/30/2008 4:00p DO Not Use [employer] [facility] At [facility], [address] [facility] M.D. Office Visit 12/21/2008 1:00p DO Not Use [employer] [facility], [address] [facility] M.D. 782.1 Office Visit 09/19/2008 11:00a DO Not Use [employer] [facility], [address] [facility] M.D. 782.1 Office Visit 09/14/2008 10:00a DO Not Use [employer] [facility], [address] [facility] M.D. 719.49 Office Visit 09/05/2008 1:00p DO Not Use [employer] [facility], [address] [facility] M.D. Office Visit 05/20/2008 2:00p DO Not Use Marine [facility], [id number] [phone] Mccauslandteresa Wright.Wanda,[facility] Plan of Care Future Appointment(s):06/20/2017 2:15 pm - Virginia Watt M.D. at [facility]06/10/2017 9:30 am - ARTURO Bell at [facility]06/10/2017 9:30 am - Juan Diego Enriquez PA-C at [facility]06/10/2017 9:30 am - ARTURO Solomon at [facility]06/10/2017 9:30 am - Virginia Watt M.D. at [facility]09/05/2017 1:45 pm - Garcia Antoine MD at [facility]05/30/2017 - Virginia Watt M.D.M16.11 Unilateral primary osteoarthritis, right hipFollow up:Follow up: 2 weeks after surgery
--- OUTSIDE RECORDS SUMMARY | 2017-06-10 07:27 | XMS REPORT ---
:1945 External Reference #:[id number] Author Organization [facility] Address [address] [address] Phone [phone] Care Team Providers Name Role Phone Sunny Leyva MD Primary Care Physician Unavailable Payers Type Date Identification Numbers Payment Provider Subscriber Medicare Primary Effective: Policy Number: [id number] Medicare Colt Koehler 2011 PayID: [id number] [address] [place] [address] Medigap Part B Effective: 2011 Policy Number: [id number] BS Facets Colt Koehler Expires: 2016 PayID: [id number] [address] [address] [place] [address] Commercial Policy Number: [id number] [facility] Colt Koehler PayID: [id number] [address] [place] [address] Problems Date Description Provider Status Onset: 03/05/2011 [...] Headache Father Osteoporosis kyphosis Mother due to [place] () - age 85 Mother Stroke First [...] day Sunny Acetonide as needed Wanda Leyva M.D.,[facility] TJorgeEDavid Below Knee 12/15 Active Misc 2unit Sunny Med-X /2012 s W[facility].D[facility] Fish Oil Active Capsules 910mg takes Unknown Concentrate daily Glucosamine Active Capsules 1500Com 1 daily Unknown Chondroitin 1500 Complex Maximum Strength Saw [place] Plus Active Capsules 320mg 1 capsule Unknown [...] Cream 0.1% 60g apply L40.9 Jaden topically Pashto, - to COOK FISH EGGS 06/08 affected area 2 times a day until rash is resolved Cyclobenzaprine HCL 03/17 Hx Tablets 5mg 20tab take one T84.84xS s tablet by Wanda Leyva, - mouth Mitchel,FACP 04/05 twice a /2015 day as needed Doxycycline 12/06 Hx Capsules 100mg 14cap si bid 088.81 Sunny Monohydrate s x 7 days Carol Bourgeois M.D.,[facility] 12/19 Meloxicam 12/06 Hx Tablets 7.5mg 40tab 1 by mouth A69.29 s twice a Wanda Leyva, - day as Mitchel,[facility] 04/05 Doxycycline Hyclate 08/25 Hx Tablets 100mg 14tab 1 po bid A69.29 s x7 days Carol Bourgeois M.D.,[facility] 12/26 Mupirocin 08/25 Hx Ointment 2% 15g twice a 478.11 day as Wanda Leyva, - needed Mitchel,[facility] 03/17 Keflex 08/05 Hx Capsules 500mg 14cap 1 tab by 704.8 Guru s mouth JOHNY Teran - twice a 08/24 day x days Aspirin 12/09 Hx Tablets 81mg 1 by mouth Guru every day JOHNY Teran - 05/26 Doxycycline 12/09 Hx Capsules 100mg 42cap si 088.81 Guru [facility] s twice a JOHNY Teran - day x 21 Omeprazole 12/02 Hx Capsules 20mg 30cap [address] s every day JOHNY Teran - 12/09 Aspirin 07/11 Hx Tablets 325mg 30tab 1 by mouth 453.40 s every day Carol Bourgeois M.D.,[facility] 12/09 Famciclovir 05/25 Hx Tablets 250mg 60tab 1 tab po s bid Carol Bourgeois M.D.,[facility] 11/30 Xarelto 12/24 Hx Tablets 20mg 30tab po qd 453.40 s Carol Bourgeois M.D.,[facility] 07/11 Xarelto 12/10 Hx Tablets 15mg 42tab 1 po bid 453.40 Darci Garcias s for 3 Pamela, - weeks Mitchel 12/24 Amoxicillin 12/08 Hx Tablets 500mg 28tab 2 tabs po 466.0 s bid for [address] M.D.,[facility] 01/02 Benzonatate 12/08 Hx Capsules 200mg 20cap po tid prn 466.0 s Carol Bourgeois M.D.,[facility] 01/02 Valacyclovir HCL 08/29 Hx Tablets 1gm 21tab po q8h for 054.19 s 1 wk prn Carol Bourgeois M.D.,[facility] 01/02 Doxycycline Hyclate 08/29 Hx Tablets 100mg 4tabs 2 tabs po 054.19 x1 ishmael Leyva, - prn MDavid,[facility] 01/02 Carisoprodol 08/01 Hx Tablets 250mg 30tab 1 tab po 719.45 s qhs Carol Bourgeois M.D.,[facility] 01/02 Doxycycline Hyclate 08/28 Hx Tablets 100mg 4tabs 2 tabs po x1 ishmael Leyva, - prn MDavid,[facility] 10/12 Keflex 12/30 Hx Capsules 500mg 40cap [...] capsules 1 Wanda Leyva, - hour prior Mitchel,[facility] 11/30 to procedure as needed Lysine Hx [...] Code Status Date Vaccine Reaction Lot # [id number] Given 04/04/2017 Influenza Virus Vaccine, no reaction, pt [id number] Quadrivalent, Split, tolerated well Preservative Free 77349 Given 01/22/2016 Influenza Virus Vaccine, no reaction [id number] Quadrivalent, Split Virus, Im Use 99222 Given 04/05/2015 Influenza Virus Vaccine, no reaction noted [id number] Quadrivalent, Split, Preservative Free 33940 Given 04/05/2015 Pneumococcal Conjugate no reaction noted [id number] Vaccine 13 Valent For Intramuscular Use 81463 Given 02/08/2014 Flu Vaccine Split Virus [id number] Preservative Free For Indiv 3Yr Older 82047 Given 01/04/2013 Flu Vaccine Split Virus [id number] Preservative Free For Indiv 3Yr Older [id number] Given 02/27/2012 Fluvirin Im 3Yrs And Older [id number] 80619 Given 02/27/2012 Pneumonia Vaccine [id number] 18891 Given 08/02/2011 Tdap - [id number] Tetanus/Diptheria/Acellular Pertussis 14592 Given 03/05/2011 Flu Vaccine Split Virus [id number] Preservative Free For Indiv 3Yr Older 04972 Given 10/12/2010 Zoster (Zostavax) [id number] Vital Signs Date Vital Result Comment 05/26/2017 Weight 154.00 lb Heart Rate 70 [...] Test Date Test Result H/L Range Note Order 05/26/2017 EKG <pending> Basic Metabolic Panel 05/23/2017 Sodium 137 mmol/L [...] ng/mL 2-16 Factor II (Prothrombin) 12/25/2012 Prothrombin 06008 Negative Negative Genoty Mutation Prothrombin [id number] Interp See Comment 75 Prothrombin Mutation Review [...] 09/08/2008 Ua Color YELLOW Appearance-Urine CLEAR Specific [place]-Ur 1.021 1.010-1.030 Esterase-Urine NEGATIVE Negative Nitrite NEGATIVE Negative Uwybsiecenkb-Yr-CSQ NEGATIVE Negative Protein-Urine NEGATIVE Negative PH-Urine 7.0 [...] levels of PSA measured using the [employer] DXI Hybritech immunoassay should not be interpreted as absolute evidence of the presence or absence of disease. The PSA value should be used in conjunction with other pertinent clinical diagnostic procedures. The values obtained with different assay methods or kits cannot be used interchangeably. 3 SEE RESULT BELOW Name: COLT KOEHLER : [address]: Ning Leyva MD Acct: [id number] Unit: [id number] AGE: 71 Location: [facility] Re04/15/17 SEX: M Status: REG REF SPEC: [id number] NIA: 04/15/17-[address]: Sunny Leyva MD REQ: [id number] RECD: 04/15/17 STATUS: COMP _ SOURCE: STOOL SPDESC: ORDERED: C. diff PCR/S, Fecal Lactoferr/R, O P: Thierry/Crypt/R Procedure Result Reported Site Stool Specimen Description Final 04/15/17- 194 ML Stool Color Brown Stool Form Semi-formed Stool Consistency Soft C. difficile PCR Final 04/15/17- 2108 ML Organism 1 027 Presumptive NEGATIVE Organism [...] performed at Main Lab DEPARTMENT OF PATHOLOGY, [address] [place] [address] Best Hendrix M.D. Director [facility] # [id number] Patient: COLT KOEHLER [id number] (Continued) Specimen: [id number] Collected: 04/15/17-1014 Received: 04/15/17-1827 (Continued) Procedure Result Reported Site O P: Giardia/Cryptospor Screen Final (continued) 04/16/17927 at [phone]. TEST LIMITATIONS: As with all diagnostic procedures, [...] and are not recommended. * ML - [facility] ([facility]) . END OF REPORT * ML=Testing performed at Main Lab DEPARTMENT OF PATHOLOGY, [address] [place] [address] Best Hendrix M.D. Director [facility] # [id number] REFERENCE VALUE <=50.0 (Normal) Test Performed by: [address] [place] [address] 5 [id number] 6 SEE RESULT BELOW Name: COLT KOEHLER : [address]: Garcia Antoine MD Acct: [id number] Unit: [id number] AGE: 71 Location: [facility] Re09/12/16 SEX: M Status: DEP [facility] SPEC: [id number] NIA: 09/12/16-[address]: Garcia Antoine MD REQ: [id number] RECD: 09/12/16 STATUS: SOUT _ ORDERED: Gloria, LEVEL 2, LEVEL 3 COMMENTS: [id number] FINAL DIAGNOSIS 1. Wrist, right, posterior interosseous [...] by up to 1.6 cm aggregate of yqcldd-cuudm-buhm irregular bone fragments. Within the aggregate is [...] articular surface and shaggy to nodular edges. Cad Administrator sections are submitted in one cassette following decalcification. CONTINUED ON NEXT PAGE * ML=Testing performed at Main Lab DEPARTMENT OF PATHOLOGY, [address] [place] [address] Best Hendrix M.D. Director [facility] # [id number] RUN DATE: 09/17/16 [facility] LAB LIVE PAGE 2 Patient: MANDEEPCOLT [id number] (Continued) MICROSCOPIC DESCRIPTION (Continued) MICROSCOPIC DESCRIPTION Signed (signature on file) Best Hendrix MD 1446 END OF REPORT * ML=Testing performed at Main Lab DEPARTMENT OF PATHOLOGY, [address] [place] [address] Best Hendrix M.D. Director [facility] # [id number] 7 Serum levels of PSA measured using the [employer] DXI Hybritech immunoassay should not be interpreted as absolute evidence of the presence or absence of disease. The PSA value should be used in conjunction with other pertinent clinical diagnostic procedures. The values obtained with different assay methods or kits cannot be used interchangeably. 8 Serum levels of PSA measured using the [employer] DXI Hybritech immunoassay should not be interpreted as absolute evidence of the presence or absence of disease. The PSA value should be used in conjunction with other pertinent clinical diagnostic procedures. The values obtained with different assay methods or kits cannot be used interchangeably. 9 Serum levels of PSA measured using the [employer] DXI Hybritech immunoassay should not be interpreted [...] Serum levels of PSA measured using the [employer] DXI Hybritech immunoassay should not be interpreted [...] screening test (e.g., EIA). Test Performed by: [place] [address] Infusion Pharmacist: Gilberto Carballo II, M.D., Ph.D. 22 Not diagnostic. Supplemental testing ordered by reflex. Test Performed by: [place] [address] Infusion Pharmacist: Gilberto G. Morice, II, M.D., Ph.D. 23 Acute inflammation: >10.00 24 Serum levels of PSA measured using the [employer] DXI Hybritech immunoassay should not be interpreted [...] Serum levels of PSA measured using the [employer] DXI Hybritech immunoassay should not be interpreted [...] screening test (e.g., EIA). Test Performed by: [place] [address] Infusion Pharmacist: Santhosh Pompa III, M.D. 28 Test Performed by: [place] [address] Infusion Pharmacist: Santhosh Pompa III, M.D. 29 Acute inflammation: >10.00 30 Test Performed by: [place] [address] Infusion Pharmacist: Santhosh Pompa III, M.D. 31 -- REFERENCE VALUE -- 25-HYDROXY D TOTAL (D2+D3) Optimum levels in the healthy population are 20-50, patients with bone disease may benefit from higher levels within this range. Test Performed by: [facility] - [address] [address] Infusion Pharmacist: Santhosh Pompa III, M.D. 32 Because ethnic [...] levels of PSA measured using the [employer]as[employer] DXI Hybritech immunoassay should not be interpreted [...] not reviewed by physician. Test Performed by: [place] [address] Infusion Pharmacist: Santhosh Pompa III, M.D. 41 -- REFERENCE VALUE -- <10.0 (Negative) 42 -- REFERENCE VALUE -- <10.0 (Negative) 43 -- REFERENCE VALUE -- <10.0 (Negative) Test Performed by: [place] [address] Infusion Pharmacist: Santhosh Pompa III, M.D. 44 -- REFERENCE VALUE -- 10.3 - 12.8 45 -- REFERENCE VALUE -- 10.3 - 12.8 Test Performed by: [place] [address] Infusion Pharmacist: Santhosh Pompa III, M.D. 46 Test Performed by: [place] [address] Infusion Pharmacist: Santhosh Pompa III, M.D. 47 Test Performed by: [place] [address] Infusion Pharmacist: Santhosh Pompa III, M.D. 48 Test Performed by: [place] [address] Infusion Pharmacist: Santhosh Pompa III, M.D. 49 Test Performed by: [place] [address] Infusion Pharmacist: Santhosh Pompa III, M.D. 50 Test Performed by: [place] [address] Infusion Pharmacist: Santhosh Pompa III, M.D. 51 REVISED RESULTS [...] negative. Mark Calderon M.D. Test Performed by: [address] [address] Infusion Pharmacist: Santhosh Pompa III, M.D. 53 Test Performed by: [facility] [address] [place] [address] Infusion Pharmacist: Santhosh Pompa III, M.D. 54 Test Performed by: [facility] [address] [place] [address] Infusion Pharmacist: Santhosh Pompa III, M.D. 55 Test Performed by: [address] [address] Infusion Pharmacist: Santhosh Pompa III, M.D. 56 Test Performed by: [place] [address] Infusion Pharmacist: Santhosh Pompa III, M.D. 57 Test Performed by: [address] [address] Infusion Pharmacist: Santhosh Pompa III, M.D. 58 Test Performed by: [place] [address] Infusion Pharmacist: Santhosh Pompa III, M.D. 59 HDL Interpretation: [...] VALUE -- <10.0 (Negative) Test Performed by: [address] [address] Infusion Pharmacist: Santhosh R. Cockerill, III, M.D. 65 -- REFERENCE VALUE -- 10.3 - 12.8 66 Test Performed by: [place] [address] Infusion Pharmacist: Santhosh Pompa III, M.D. 67 Test Performed by: [place] [address] Infusion Pharmacist: Santhosh Pompa III, M.D. 68 Test Performed by: [place] [address] Infusion Pharmacist: Santhosh Pompa III, M.D. 69 IMPRESSION: Data [...] 70 Olayinka Worley M.D. Test Performed by: [place] [address] Infusion Pharmacist: Santhosh Pompa III, M.D. 71 Test Performed by: [place] [address] Infusion Pharmacist: Santhosh Pompa III, M.D. 72 Test Performed by: [place] [address] Infusion Pharmacist: Santhosh Pompa III, M.D. 73 Serum levels [...] absence of malignant disease. Test Performed by: [place] [address] Infusion Pharmacist: Santhosh Pompa III, M.D. 75 This individual DOES NOT have the Prothrombin U62011L mutation. Although the Prothrombin [id number] mutation is absent, the individual may have other genetic and environmental risk factors for thrombosis. If clinically indicated, suggest Coagulation Consultation 27309 (Thrombophilia Profile) to complete the evaluation for an inherited or acquired thrombosing disorder (i.e., thrombophilia). Consider genetic consultation and counseling of potentially affected family members regarding laboratory testing. This test is a direct mutation analysis using PCR amplification, signal generation and release by cleavage of sequence specific alleles ([employer], [employer], [place], [place]). 76 RESULT: PEPE Wang Test Performed by: [place] [address] Infusion Pharmacist: Santhosh Pompa III, M.D. 77 This individual DOES NOT have the factor V Leiden (R506Q) mutation. Although the factor V Leiden mutation is absent, the individual may have other genetic and environmental risk factors for thrombosis. If clinically indicated, suggest Coagulation Consultation 58474 (Thrombophilia Profile) to complete the evaluation for an inherited or acquired thrombosing disorder (i.e., thrombophilia). This test is a direct mutation analysis using PCR amplification, signal generation and release by cleavage of sequence specific alleles ([employer], [employer], [place], [place]). 78 RESULT: PEPE Wang Test Performed by: [place] [address] Infusion Pharmacist: Santhosh Pompa III, M.D. 79 -- REFERENCE VALUE -- <=13 (Fasting) Test Performed by: [place] [address] Infusion Pharmacist: Santhosh Pompa III, M.D. 80 Serum levels [...] THROAT JOSELUIS 84 ---- RUN DATE: 11/02/10 [facility] NMI LIVE PAGE 1 RUN TIME: 1257 Specimen Inquiry RUN USER: INTERFACE -- Name: COLT KOEHLER Status: REG REF Re10/31/10 Age/Sex: 65/M Unit#: [id number] Location: [facility]. : [birth year] -- Specimen: [id number] SOUT Spec Date: 10/31/[address]: Guru [...] 11/02/10 1254 -- -- DEPARTMENT OF PATHOLOGY, [address] [place] [address] [facility] Permit #[id number] Best Hendrix M.D. Director Fannie Cao M.D. Orthopedic Tech Dir hai -- 85 IgG band(s) ([place]): [...] to be considered positive. Test Performed by: [facility] Dpt of Lab Med and Pathology [address] [place] [address] Infusion Pharmacist: Santhosh Pompa III, M.D. 88 * SERUM [...] change was based on recommendations from the [place] [employer]. 94 Please note change in reference range effective 07 . 95 A metabolite of Naproxen, O-desmethylnaproxen, has been shown to interfere with the Jendrassik-Coamo method for measuring total bilirubin. Samples from patients who have taken Naproxen have shown spurious elevation in total bilirubin levels. Procedures Date CPT Code Description Status 05/26/2017 78397 EKG Tracing & Interpretation Completed 03/10/2017 92604 Removal Skin Tags Up To 15 Completed 12/31/2016 86612 Inject Tendon Sheath Or Ligament Aponeurosis Eg Plantar Completed Fascia 09/12/2016 60842 Transection/Avulsion, Spinal Nerve, Extradural Completed 09/12/2016 64743 Transection/Avulsion, Spinal Nerve, Extradural Completed 09/12/2016 43821 Carpal Tunnel Release Completed 09/12/2016 81758 Radial Styloidectomy Completed 09/12/2016 87152 Carpectomy ALL Bones Proximal Row Completed 09/12/2016 07772 Carpectomy ALL Bones Proximal Row Completed 08/07/2016 69816 Holter Monitor Review (24 hr)dr romeo & fabiana Completed only 08/05/2016 89509 ECG Monitor/Recording W/Visual Superimposition Scanning Completed 07/31/2016 23208 ECHO Transthoracic, Real-Time 2D With Doppler And Color Completed Flow 12/14/2013 93728 EKG Tracing & Interpretation Completed 10/15/2007 Colonoscopy Completed Encounters Type Date Location Provider CPT E/M Dx Office Visit 04/11/2017 [facility] [place] Watt M.D. 83606 M25.551 2:00p Of Don M16.11 Office Visit 04/04/2017 4:00p [facility] Internal Medicine Sunny Leyva, 71183 R19.4 - [place] Matias Grullon,FACP L82.0 M25.551 Z23 Office Visit 04/02/2017 11:30a [facility] [place] [address] M19.031 [facility] G56.01 G56.21 Office Visit 03/10/2017 2:40p [facility] [place] [address] L82.1 L57.0 D18.01 B35.1 B35.3 I83.92 L91.8 Z78.9 L53.8 R23.8 S00.202A S00.80xA Office Visit 12/31/2016 2:15p [facility] [place] [address] M19.031 C.M.A. G56.01 G56.21 M65.331 Office Visit 09/03/2016 2:00p [facility] [place] [address] M19.031 C.M.A. G56.01 G56.21 Office Visit 2016 2:15p [facility] [place] [address] M19.031 C.M.A. G56.01 Office Visit 07/24/2016 4:20p [facility] Internal Medicine Sunny Leyva, [address]3510 G45.9 - [address] [address] Kyle.Wanda,FACP M19.031 M54.5 Office Visit 07/03/2016 2:00p [facility] [place] [address] M11.231 C.M.A. M19.031 Office Visit 06/21/2016 3:00p [facility] [place] [address] M19.031 C.M.A. M71.331 Office Visit 06/10/2016 4:20p [facility] Internal Sunny Leyva, 63364 M71.331 Medicine - [place] Matias Grullon,FACP Office Visit 03/12/2016 9:50a [facility] Internal Sunny Leyva, 99946 M25.551 Medicine - Mar[place] Grullon,FACP L30.9 Office Visit 01/22/2016 2:40p [facility] Internal Medicine Sunny Leyva, 07572 M46.1 - [place] Matias Grullon,FACP M25.551 Z23 Office Visit 05/15/2015 2:40p [facility] [place] [address] L40.9 Medicine - [address] Office Visit 03/17/2015 3:40p [facility] Internal Sunny Leyva, 00433 T84.84xS Medicine - [place] Matias Grullon,FACP Office Visit 12/19/2014 2:50p [facility] Internal Sunny Leyva, 45347 A69.20 Medicine - [place] Matias Grullon,FACP R53.83 Office Visit 12/06/2014 10:10a [facility] Internal Medicine Sunny Leyva, 66569 088.81 - Mar[place] Grullon,FACP 719.48 Office Visit 08/25/2014 11:30a [facility] Internal Sunny Leyva, 52055 478.11 Medicine - [place] Matias Grullon,FACP 088.81 Office Visit 08/05/2014 3:30p [facility] Internal Medicine - Guru Teran, JOHNY [address] Office Visit 04/12/2014 2:30p [facility] Internal Medicine - Guru Teran, JOHNY 47116 719.46 [place] 729.5 Office Visit 12/23/2013 11:00a [facility] Internal Medicine - Guru Teran, JOHNY 41097 088.81 [place] Office Visit 12/14/2013 1:00p [facility] Internal Medicine - Guru Teran, JOHNY 11234 088.81 [place] 786.50 Office Visit 12/09/2013 10:30a [facility] Internal Medicine - Guru Teran, JOHNY 69198 919.4 [place] 453.52 Office Visit 11/30/2013 10:30a [facility] Internal Medicine - Guru Teran, JOHNY 57778 724.2 [place] Office Visit 04/16/2013 3:00p [facility] Internal Medicine Sunny Leyva, 11571 V70.0 Maric[place] Grullon,FACP 453.52 790.93 V73.99 719.43 Office Visit 02/12/2013 9:40a [facility] Internal Medicine Sunny Leyva, 96621 453.40 - Maricruz Grullon,FACP 790.93 719.45 Office Visit 01/22/2013 8:30a [facility] Internal Medicine Nubia Cerna, N.P. 72317 459.10 - [place] Office Visit 01/04/2013 9:10a [facility] Internal Medicine SunnyJody Leyva, 07831 173.61 - [place] Grullon,FACP 790.93 281.1 v04.81 Office Visit 12/24/2012 2:00p [facility] Internal Medicine Sunny Leyva, 34431 453.40 - Maricruz Grullon,FACP 786.2 285.8 V76.44 Office Visit 12/10/2012 12:00p [facility] Internal Medicine Darci Santiago, 71513 453.40 - Maric[place] Grullon Office Visit 12/08/2012 1:20p [facility] Internal Medicine Darci Santiago, 07366 719.46 - Maricruz Grullon 709.9 Office Visit 02/27/2012 2:40p [facility] Internal Medicine Darci Santiago, 76498 784.0 - Maricruz Grullon V04.81 V03.82 Office Visit 01/03/2012 10:00a [facility] Internal Medicine Darci Santiago, 19952 466.0 - Maricruz Grullon Office Visit 12/09/2011 10:10a [facility] Internal Medicine Sunny Leyva, 89627 466.0 - Maricruz Grullon,FACP Office Visit 10/28/2011 10:50a [facility] Internal Medicine Sunny Leyva, 87037 455.9 - Maricruz Grullon,FACP Office Visit 08/30/2011 11:40a [facility] Internal Medicine Sunny Leyva, 22611 054.19 - Maricruz Grullon,FACP 846.1 Office Visit 08/29/2011 8:45a [facility] Myrick M.D. 32917 726.5 C.M.A. 719.45 Office Visit 08/02/2011 12:15p [facility] Internal Medicine Nubia Cerna, N.P. 23747 719.45 - [place] V06.1 691.8 Office Visit 03/05/2011 11:00a DO Not Use Hairspring Truing Inspector At Sunny Leyva, 75229 V70.0 Felicitas Grullon,FACP 600.00 443.0 V04.81 Office Visit 11/06/2010 11:40a DO Not Use Hairspring Truing Inspector At [facility], 47547 462 Felicitas Grullon,[facility] Office Visit 10/12/2010 1:40p DO Not Use Hairspring Truing Inspector At [facility], 62472 911.4 Felicitas Grullon,[facility] 110.1 238.2 V05.4 V05.8 Office Visit 08/30/2010 9:45a DO Not Use Hairspring Truing Inspector At [facility], N.P. 23536 911.4 [facility] Office Visit 12/30/2008 4:00p DO Not Use Hairspring Truing Inspector At [facility], 31134 782.1 Felicitas M.D. Office Visit 12/21/2008 1:00p DO Not Use Hairspring Truing Inspector At [facility], 14449 281.9 [facility] M.D. 782.1 Office Visit 09/19/2008 11:00a DO Not Use Hairspring Truing Inspector At [facility], 91757 281.9 [facility] M.D. 782.1 Office Visit 09/14/2008 10:00a DO Not Use Hairspring Truing Inspector At [facility], 24481 719.41 [facility] 719.49 Office Visit 09/05/2008 1:00p DO Not Use Hairspring Truing Inspector At [facility], 22074 911.4 Felicitas M.D. Office Visit 05/20/2008 2:00p DO Not Use Hairspring Truing Inspector At [facility], 01875 727.67 Felicitas Grullon,[facility] Plan of Care Future Appointment(s):06/10/2017 9:30 am - ARTURO Bell at [facility]06/10/2017 9:30 am - Juan Diego Enriquez PA-C at [facility]06/10/2017 9:30 am - ARTURO Solomon at [facility]06/10/2017 9:30 am - Virginia Watt M.D. at [facility]05/30/2017 1:00 pm - Virginia Shukri, M.D. at [facility]09/05/2017 1:45 pm - Garcia Antoine MD at [facility]05/26/2017 - Sunny Leyva M.D.,FACPZ01.810 Encounter for preprocedural cardiovascular examinationComments:Patient has stable medical problems, is at low risk for cardiopulmonary complications of the plannedsurgery , and is advised to proceed.M16.11 Unilateral primary osteoarthritis, right hipComments:Take pain relievers when necessary for arthritic pain.M25.552 Pain in left hipComments:If you continue having pain, call the office and we can order an x-ray.R97.20 Elevated prostate specific antigen [PSA]Comments:We discussed the results from your bloodwork and found that your PSA was slightly elevated. 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
[2017-06-10] MEDS ORDERED: Famotidine IV* 10 MG/ML 2 ML (20 mg) ONE (07:44)
[2017-06-10] MEDS ORDERED: Dexamethasone IV* 4 MG/ML 1 ML (4 MG) ONE (07:44)
[2017-06-10] MEDS ORDERED: ceFAZolin 2 GM (*##) 2 GM/100 ML BAG USE CEFA2SOL IVPB ONE (07:44)
[2017-06-10] MEDS ORDERED: Bupivacaine 0.5% SDV PF* 10-30ML VIAL ONE (08:19)
[2017-06-10] MEDS ORDERED: Propofol* 10 MG/ML 20 ML BTL IV PUSH ONE ×2 (08:20→11:48)
[2017-06-10] MEDS ORDERED: Lidocaine 2% PF * 5 ML VIAL ONE (08:20)
[2017-06-10] MEDS ORDERED: fentaNYL* 50 MCG/ML 2 ML VIAL (100 MCG VIAL) ONE (09:04)
[2017-06-10] MEDS ORDERED: Midazolam* 1 MG/ML 5 ML VIAL (5 MG) ONE (09:04)
[2017-06-10] MEDS ORDERED: EPHEDrine (Pressors)* 50 MG/ML VIAL ONE (09:51)
[2017-06-10] MEDS ORDERED: fentaNYL* 50 MCG/ML 2 ML VIAL (100 MCG VIAL) IV PRN (10:08)
[2017-06-10] MEDS ORDERED: PROCHLORPERAZINE INJ 5 MG/ML 2 ML VIAL IV PRN ×2 (10:08→11:04)
[2017-06-10] MEDS ORDERED: Acetaminophen IV 1GM/100ML * 1,000 MG/100 ML VIAL IVPB ONE (10:08)
[2017-06-10] MEDS ORDERED: Naloxone* 0.4 MG/ML 1 ML VIAL IV PRN (10:08)
[2017-06-10] MEDS ORDERED: oxyCODONE TAB* 5 MG TAB PO PRN ×3 (10:08→11:04)
[2017-06-10] MEDS ORDERED: Cyclobenzaprine TAB* 10 MG PO PRN (10:21)
[2017-06-10] MEDS ORDERED: Bisacodyl SUPP* 10 MG SUPP PR PRN (10:21)
[2017-06-10] MEDS ORDERED: oxyCODONE/Acetamin 5/325 MG* TAB PO PRN ×2 (10:21)
[2017-06-10] MEDS ORDERED: Magnesium Hydroxide LIQ* 30 ML UDC PO PRN (10:21)
[2017-06-10] MEDS ORDERED: Polyethylene Glycol 3350* 17 GM PACKET PO PRN (10:21)
[2017-06-10] MEDS ORDERED: ceFAZolin 1 GM in Dextrose (*) 1 GM/50 ML BAG IVPB SCH (11:00)
[2017-06-10] MEDS ORDERED: Ondansetron INJ* 2 MG/ML VIAL IV PRN (11:04)
[2017-06-10] MEDS ORDERED: EPHEDrine (Pressors)* 50 MG/ML VIAL IV PUSH PRN (11:04)
[2017-06-10] MEDS ORDERED: Nalbuphine* 20 MG/ML 1 ML VIAL IV PRN (11:04)
[2017-06-10] MEDS ORDERED: Phenylephrine INJ* 10 MG/ML 1 ML VIAL (10 MG) ONE (11:08)
[2017-06-10] MEDS ORDERED: Glycopyrrolate IV* 0.2 MG/ML 1 ML VIAL ONE (11:14)
[2017-06-10] MEDS ORDERED: Ropivacaine* 300 MG in NS 0.9% 250 ML* 240 ML EPIDURAL SCH (12:00)
[2017-06-10] MEDS: Acetaminophen TAB* 325 MG PO SCH ×2 (12:51→20:18)
[2017-06-10] MEDS ORDERED: Acetaminophen IV 1GM/100ML * 100 ML ONE (12:55)
--- NOTE | 2017-06-10 12:59 | RAD ---
Indication: Post RIGHT total hip arthroplasty. Comparison: Intraoperative exam of the same date and April 11, 2017 Technique: AP pelvis and AP and crosstable lateral views RIGHT hip. Report: Noncemented RIGHT total hip prosthesis in place with normal alignment. Negative for periprosthetic fracture. Overlying soft tissue edema and subcutaneous emphysema. Unremarkable appearance of the contralateral hip prosthesis in the AP projection. IMPRESSION: Unremarkable immediate postop appearance of the RIGHT total hip prosthesis.
--- NOTE | 2017-06-10 13:01 | RAD ---
Indication: Intraoperative exam during RIGHT hip replacement. Comparison: April 11, 2017 Technique: Crosstable LEFT lateral decubitus AP view pelvis and RIGHT hip 1055 hours Report: RIGHT acetabular component in place. RIGHT femur test fit/reamer device partially visualized. No fracture evident. IMPRESSION: Intraoperative control film.
[2017-06-10] MEDS: ceFAZolin 1 GM/10 ML SYRINGE IVPB Q8H IVPB SCH ×2 (17:34)
[2017-06-10] MEDS: Docusate CAP* 100 MG PO SCH (20:19)
[2017-06-10] MEDS: Magnesium Hydroxide LIQ* 30 ML UDC PO SCH (20:20)
[2017-06-11] MEDS: ceFAZolin 1 GM/10 ML SYRINGE IVPB Q8H IVPB SCH ×4 (02:39→10:34)
[2017-06-11] MEDS: traMADol TAB* 50 MG PO PRN ×3 (02:45→19:48)
[2017-06-11] MEDS: Acetaminophen TAB* 325 MG PO SCH (04:16)
[2017-06-11 05:25] LABS: Hematocrit 32 % (42-52); Hemoglobin 10.9 g/dl (14.0-18.0); Mean Platelet Volume 8 um3 (7.4-10.4); Platelet Count 177 10^3/ul (150-450)
[2017-06-11 05:37] LABS: EGFR Non-African American 71.4 (>60)
[2017-06-11] MEDS ORDERED: Ondansetron INJ* 2 MG/ML VIAL IV PRN (06:00)
[2017-06-11] MEDS ORDERED: diPHENhydraMINE IV* 50 MG/ML 1 ml VIAL (BENADRYL) IV PRN (06:00)
[2017-06-11] MEDS ORDERED: oxyCODONE TAB* 5 MG TAB PO PRN ×2 (07:00→11:39)
[2017-06-11] MEDS ORDERED: HYDROmorphone INJ* 2 MG/ML CARPUJECT SYRINGE IV ONE (07:00)
[2017-06-11] MEDS: BETAINE HCL 300 MG PO SCH ×3 (07:58→17:46)
[2017-06-11] MEDS ORDERED: HYDROmorphone INJ* 2 MG/ML CARPUJECT SYRINGE IV PRN (09:48)
[2017-06-11] MEDS ORDERED: Scopolamine 1.5 mg* PATCH TRANSDERM SCH (10:00)
[2017-06-11] MEDS: Docusate CAP* 100 MG PO SCH ×2 (10:10→19:48)
[2017-06-11] MEDS: Magnesium Hydroxide LIQ* 30 ML UDC PO SCH ×2 (10:10→19:49)
[2017-06-11] MEDS: Acetaminophen TAB* 325 MG PO PRN ×3 (11:41→21:52)
[2017-06-11] MEDS: Enoxaparin(*) 40 MG/0.4 ML SYR SUBCUT SCH (11:43)
--- NOTE | 2017-06-11 11:50 | PN ---
Progress Note - Progress Note Date of Service: 06/11/17 SOAP: Subjective: []Patient seen at bedside. He reports a painful right hip, nausea and dizziness. He Denies CP, SOB, abdominal pain. Per nursing staff his abdomen was tender this morning which patient reports has resolved. Patient reports a history of anaphylaxis to morphine. He tolerates oxycodone with stomach upset. He tolerates Dilaudid with dizziness. Objective: [] Vital Signs Temp 97.5 F 06/11/17 11:33 Pulse 46 06/11/17 11:40 Resp 16 06/11/17 11:42 BP 90/48 06/11/17 11:40 Pulse Ox 100 06/11/17 11:33 Intake & Output 06/10/17 06/11/17 06/11/17 18:59 06:59 18:59 Intake Total 2400 1390 990 Output Total 500 1900 Balance 1900 -510 990 Weight 155 lb Intake: IV Fluids 2400 980 980 LR 2350 980 980 NS 50ML, Cefazolin 2G 50 IVPB 10 LR 10 Oral 410 Output: Rainey 400 1900 Estimated Blood Loss 100 Laboratory Last Values Hgb 10.9 g/dl (14.0-18.0) L 06/11/17 04:40 Hct 32 % (42-52) L 06/11/17 04:40 Plt Count 177 10^3/ul (150-450) 06/11/17 04:40 MPV 8 um3 (7.4-10.4) 06/11/17 04:40 Sodium 136 mmol/L (133-145) 06/11/17 04:40 Potassium 3.8 mmol/L (3.5-5.0) 06/11/17 04:40 Chloride 104 mmol/L (101-111) 06/11/17 04:40 Carbon Dioxide 29 mmol/L (22-32) 06/11/17 04:40 Anion Gap 3 mmol/L (2-11) 06/11/17 04:40 BUN 14 mg/dL (6-24) 06/11/17 04:40 Creatinine 1.03 mg/dL (0.67-1.17) 06/11/17 04:40 Est GFR ( Amer) 91.8 (>60) 06/11/17 04:40 Est GFR (Non-Af Amer) 71.4 (>60) 06/11/17 04:40 BUN/Creatinine Ratio 13.6 (8-20) 06/11/17 04:40 Glucose 109 mg/dL (70-100) H 06/11/17 04:40 Calcium 8.4 mg/dL (8.6-10.3) L 06/11/17 04:40 General: Well appearing, NAD. Laying comfortably in bed RLE: Dressing CDI without discharge and without surrounding erythema. DF/PF intact. DP/PT 2+. Sensation intact distally BL LE: Calves supple and nontender without erythema, edema or palpable cords Abd: abdomen with very minimal tenderness of RLQ, no masses, no guarding, no rigidity. Assessment: []POD 1 sp right hip replacement 06/10 Dr Watt Plan: []WBAT PT/OT Hip precautions Scopalamine patch ordered for dizziness and nausea Oxycodone 5 mg Q 3 hr prn, dilaudid decreased from 2 mg to 0.5 mg every 2 hours PRN LR bolus 500 ml for BP of 90/50. Hold narcotic dosing until BP has improved. Nursing aware
[2017-06-11 14:59] LABS: Hematocrit 31 % (42-52); Hemoglobin 10.9 g/dl (14.0-18.0)
--- NOTE | 2017-06-11 15:34 | OP ---
DATE OF OPERATION: 06/10/17 - ROOM #340 DATE OF : 47 ATTENDING SURGEON: Virginia Watt MD. ME[employer] MANAGER: ARTURO Trejo. Mr. Enriquez did help throughout the procedure with preparation of the leg, wound retraction, manipulation of the hip, and wound closure. ANESTHESIOLOGIST: Dr. Low. ANESTHESIA: Spinal epidural. PRE-OP DIAGNOSIS: Severe endstage degenerative osteoarthritis of the right hip joint. POST-OP DIAGNOSIS: Severe endstage degenerative osteoarthritis of the right hip joint. OPERATIVE PROCEDURE: Right total hip arthroplasty. COMPLICATIONS: None. ESTIMATED BLOOD LOSS: 350 cc. HARDWARE USED: This is uncemented Hair total hip hardware. For the cup, a 56E Tritanium cluster hole shell; one 25-mm cancellous bone screw. For the polyethylene, a Trident X3 0-degree polyethylene insert 40E. For the stem, an Accolade TMZF size 4.5 with a 127-degree neck. For the head, a Biolox delta 40 - 2.5 ceramic head. BRIEF HISTORY/INDICATION: Mr. Koehler is a 71-year-old gentleman with years of increasingly severe right hip pain. Radiographs showed [id number] arthritis. He failed conservative treatment with physical therapy and antiinflammatories. Due to continued pain and decreased quality of life, he elected to undergo right total hip arthroplasty. Informed consent was obtained from the patient. He understood the risks of surgery included but were not limited to bleeding, infection, damage to nearby structures, continued pain, need for further surgery, intraoperative fracture, nerve palsy, hardware failure or loosening, dislocation, leg length discrepancy, stroke, heart attack , blood clot, and . He wished to proceed. INTRAOPERATIVE FINDINGS: Intraoperatively, the patient was noted to have complete loss of cartilage along the femoral head and acetabulum. He had significant medial wear of the acetabulum. DESCRIPTION OF PROCEDURE: Mr. Koehler was identified in the preanesthesia unit. His right lower extremity was marked as the correct operative site. Informed consent was signed and placed in the chart. The patient was taken to the operating room and placed under spinal epidural anesthesia without difficulty. A Rainey catheter was placed. He was turned on his left side in the left lateral decubitus position on the peg board. All bony prominences were well padded. Right lower extremity was prepped and draped in the usual sterile fashion. Preop time-out was made to correctly identify the patient, side, and site. Appropriate perioperative antibiotics were given within 1 hour of incision. A 12-cm posterior hip incision was made with a 10-blade and carried down to the lateral fascia layer. A new 10-blade was used to make an incision in the lateral fascial layer, in line with the surgical incision. Charnley retractor was placed. The piriformis and conjoint tendons were identified. These were elevated off the posterolateral femur using electrocautery and tagged with Ethibond suture. Next, electrocautery was used to make a standard posterolateral capsular flap and this was also tagged with Ethibond suture. The hip was carefully dislocated. Lesser troch to center of the femoral head measured 58 mm. Oscillating saw was used to make the correct femoral neck cut. Femoral head was carefully removed. The femur was retracted anteriorly. After appropriate placement of retractors, the acetabulum was well visualized. Long-handled knife was used to sharply remove any remaining labrum from the acetabular rim. The acetabulum was sequentially reamed up to a size 55. Bleeding subchondral bone bed was obtained. A 55 trial had excellent fit, stability, and anteversion/abduction angle. The final implant chosen was 56E cluster hole Tritanium hemispherical cup. This was impacted into the acetabulum without difficulty. A single 25-mm screw was placed in the superoposterior quadrant for added stability. A 40E polyethylene Trident X3 liner, 0-degree, was chosen. This was impacted into the acetabular cup. Stability of the insert was checked and rechecked and noted to be stable. Next, attention was turned to preparation of the femur canal. A canal finder was used to enter the proximal femur. Proximal femoral was sequentially broached from size 0 up to size 4.5. The 4.5 broach had excellent fit and appropriate anteversion. A 127-degree neck trial with a 40 +0 femoral head trial was chosen. Lesser troch to center of the femoral head measured 63 mm. Therefore, a -2.5 femoral head was chosen and this measured closer to 60 mm. The hip was reduced and taken through a range of motion. The hip was extremely stable in all positions. Soft tissue tension was appropriate. Leg lengths were deemed to be appropriate. The hip was carefully dislocated. All trials were removed. Final implant chosen was an Accolade TMZF size 4.5 with a 127-degree neck angle. A Biolox delta ceramic V40 femoral head size 40 with a -2.5 adapter sleeve was chosen. This was impacted onto the femoral neck. The hip was reduced and taken through a range of motion. The hip was once again stable in all positions. The wound was copiously irrigated with sterile saline. The previously tagged capsule and tendons were reapproximated to the posterolateral femur through 2 trochanteric drill holes. The lateral fascial layer was reapproximated using interrupted #1 Vicryls. The rest of the incision was closed in a layered fashion using 0 and 2-0 Vicryls. Skin was closed using running 3-0 Monocryl suture and Dermabond. Sterile Adaptic, 4x4s, and paper tape were used to cover the incision. The patient's anesthesia was reversed without difficulty. He was taken to the PACU in stable condition. Intended weightbearing will be weightbearing as tolerated. Intended DVT prophylaxis will be Lovenox in the hospital and home on aspirin. [id number]/[facility] #: [id number] [facility]ITALEmanuel
--- NOTE | 2017-06-11 16:25 | RAD ---
INDICATION: Low blood pressure. Cough. COMPARISON: June 02, 2017 TECHNIQUE: An AP portable view obtained at 1600 hours is submitted. FINDINGS: Bones/Soft Tissues: There are no acute bony findings. Cardiomediastinal: The cardiomediastinal silhouette is normal. Lungs: There is mild hypoventilation lung bases but no definitive infiltrates. Pleura: There are no pleural effusions. Other: None IMPRESSION: NO ACTIVE DISEASE.
[2017-06-11] MEDS ORDERED: Warfarin TAB(*) 4 MG PO ONE (18:00)
--- NOTE | 2017-06-11 21:54 | CONS ---
CONSULTATION REPORT: DATE OF CONSULT: 06/11/17 PRIMARY CARE PHYSICIAN: Dr. Leyva. HEALTHCARE PROXY: His . CONSULTING SERVICE: Orthopedics. REASON FOR CONSULT: Relative hypotension and bradycardia. SOURCE OF INFORMATION: History was obtained from interview with the patient and his , review of chart and medical records. RELIABILITY: Good. HISTORY OF PRESENT ILLNESS: This is a 71-year-old man with right hip pain secondary to osteoarthritis, failed conservative management, now status post right total hip arthroplasty with Dr. Watt on 06/10/17. The procedure was uneventful per report; however, status post procedure, the patient was noted to develop relative hypotension overnight on 06/11/17, where his systolic pressure was as low as 84, diastolic as low as 40, and heart rates nadiring at 46 beats per minute. The patient noted to be lightheaded and feeling fuzzy, but denied any chest pain or shortness of breath, nausea, vomiting. The patient notes that he has had a "low blood pressure for years," although was noted to be higher prior to the decline today. His blood pressures were noted to be in the 90s day prior to consultation on 06/10/17. He additionally noted he felt well prior to the procedure except for a cough for approximately 1 week, but he was "fighting a cold." He also felt like he might get a "sore throat," but denies any sick contacts though. 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 His allergy was to MOST NARCOTICS including MORPHINE, had slow heart rate as well as cardiac arrest. He noticed that after his left hip replacement, he had a similar event with slow heart rate, low blood pressure. Notes when he received Dilaudid, he became immediately nauseous as well as dizzy with some relief from Zofran. He did have the time incorrect received his Dilaudid around 3 to 4 a.m.; however, actually received it around 6 a.m. He felt better in the afternoon with decreased dizziness, was able to work with Physical Therapy, able to stand for approximately 3 minutes prior to developing dizziness. At the time of my interview, he no longer feels dizzy. Has no chest pain, shortness of breath, nausea, vomiting, but does endorse feeling "slow." PAST MEDICAL HISTORY: Includes osteoarthritis, BPH, basal cell carcinoma, Raynaud's disease, and history of DVT, unclear date, the patient thinks 2013. PAST SURGICAL HISTORY: Left total knee arthroplasty, left total hip arthroplasty, hernia repair, cystocele repair, right carpal tunnel release, and tonsillectomy. CURRENT MEDICATIONS: Reviewed. ALLERGIES: Multiple listed including MORPHINE, CELEBREX, DIPHENHYDRAMINE, ROFECOXIB, OXYCODONE, and ENVIRONMENTAL ALLERGIES. Of note, CELEBREX allergy was noted to be shortness of breath after taking it for 1 month. FAMILY HISTORY: CAD, CVA. SOCIAL HISTORY: No illicit's. 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 REVIEW OF SYSTEMS: As per HPI, otherwise all other systems negative. PHYSICAL EXAM: Last set of vitals, 86/44, heart rate 48, respiratory rate 16, 100% on 2 L, T-max 97.9. Sitting in chair, interactive, pleasant, no apparent distress. Oropharynx is clear. Has moist mucous membranes. Sclerae are anicteric. Non-elevated JVD. Has bradycardic heart rate. No murmurs, rubs, or gallops. His lungs are clear to auscultation. His abdomen is soft, nontender, nondistended. Extremities are warm, well perfused. His right lower extremity was not mobilized. He is alert and oriented x3. His cranial nerves II through XII are intact. He has no nystagmus. No apparent anxiety, agitation , or depression. LABORATORY DATA: Labs reviewed. Hemoglobin stable on 2 consecutive checks at 10.9. ASSESSMENT AND PLAN: A 71-year-old man status post right total hip arthroplasty day prior to presentation, now presenting with relative hypotension , lightheadedness, as well as bradycardia. 1. Bradycardia. Suspect medication effect. We have discontinued Dilaudid as well as oxycodone. Additionally, discontinued transdermal scopolamine patch, which may be contributing to symptoms. EKG to be checked now. Of note, heart rate when checked on 06/02/17 was 52, not significantly altered from today. The patient is particularly active, teaches karate, exercises multiple times a week, aerobic exercise, the elliptical as well as other resistance training. 2. Relative hypotension. Suspect postop related, is receiving bolus of lactated Ringer's at this time at my discretion. We will check chest x-ray to rule out any underlying infection that may have preceded in the setting of cough and viral symptoms prior to his presentation. He does not think he is bleeding at this time. He was able to work with Physical Therapy without lightheadedness, which has resolved right now. His medication list has been adjusted as noted above. He does have a history of deep venous thrombosis. The bradycardia argues against pulmonary embolism at this time. No shortness of breath. I do think this is more likely medication related. We will maintain low suspicion for CTA should the patient decompensate or not improve. 3. Status post right hip arthroplasty. Care per primary team. 4. DVT prophylaxis. Per primary team. Currently, on enoxaparin 40 mg, we will continue. We will continue to follow. Thank you for involving us in the care of this gentleman. [id number]/[facility] #: [id number] LANDEN
[2017-06-12] MEDS: traMADol TAB* 50 MG PO PRN ×2 (01:45→08:04)
[2017-06-12] MEDS: Acetaminophen TAB* 325 MG PO PRN ×5 (01:45→21:49)
[2017-06-12 05:46] LABS: Hematocrit 31 % (42-52); Hemoglobin 10.5 g/dl (14.0-18.0); Mean Platelet Volume 8 um3 (7.4-10.4); Platelet Count 160 10^3/ul (150-450)
[2017-06-12] MEDS: Ondansetron TAB* 4 MG PO PRN (05:47)
[2017-06-12 06:01] LABS: INR 1.14 (0.77-1.02)
[2017-06-12] MEDS: BETAINE HCL 300 MG PO SCH ×3 (08:01→17:46)
[2017-06-12] MEDS: Magnesium Hydroxide LIQ* 30 ML UDC PO SCH ×2 (08:04→20:24)
[2017-06-12] MEDS: Docusate CAP* 100 MG PO SCH ×2 (08:04→20:23)
--- NOTE | 2017-06-12 10:27 | PN ---
Progress Note - Progress Note Date of Service: 06/12/17 SOAP: Subjective: []patient seen at bedside. He is feeling better today with decreased dizziness and nausea. Denies chest pain or shortness of breath. he participate with physical therapy. Objective: [] Vital Signs Temp 98.3 F 06/12/17 11:29 Pulse 50 06/12/17 11:29 Resp 18 06/12/17 11:42 BP 96/56 06/12/17 11:53 Pulse Ox 94 06/12/17 11:29 Intake & Output 06/11/17 06/12/17 06/12/17 18:59 06:59 18:59 Intake Total 4464 640 700 Output Total 250 1400 175 Balance 4214 -760 525 Intake: IV Fluids 3484 LR 3484 IVPB 20 LR 20 Oral 960 640 700 Output: Urine 250 1400 175 Other: Estimated Void Medium # Bowel Movements 0 # Voids 1 Laboratory Last Values Hgb 10.5 g/dl (14.0-18.0) L 06/12/17 05:16 Hct 31 % (42-52) L 06/12/17 05:16 Plt Count 160 10^3/ul (150-450) 06/12/17 05:16 MPV 8 um3 (7.4-10.4) 06/12/17 05:16 INR (Anticoag Therapy) 1.14 (0.77-1.02) H 06/12/17 05:16 Sodium 136 mmol/L (133-145) 06/11/17 04:40 Potassium 3.8 mmol/L (3.5-5.0) 06/11/17 04:40 Chloride 104 mmol/L (101-111) 06/11/17 04:40 Carbon Dioxide 29 mmol/L (22-32) 06/11/17 04:40 Anion Gap 3 mmol/L (2-11) 06/11/17 04:40 BUN 14 mg/dL (6-24) 06/11/17 04:40 Creatinine 1.03 mg/dL (0.67-1.17) 06/11/17 04:40 Est GFR ( Amer) 91.8 (>60) 06/11/17 04:40 Est GFR (Non-Af Amer) 71.4 (>60) 06/11/17 04:40 BUN/Creatinine Ratio 13.6 (8-20) 06/11/17 04:40 Glucose 109 mg/dL (70-100) H 06/11/17 04:40 Calcium 8.4 mg/dL (8.6-10.3) L 06/11/17 04:40 General: Well appearing, NAD. Sitting comfortably in chair. A&Ox3 RLE: Dressing changed by Dr Watt this morning without complication. DF/PF intact. DP/PT 2+. Sensation intact distally BL LE: Calves supple and nontender without erythema, edema or palpable cords Assessment: []POD 2 s/p right hip replacement 06/10 Dr Watt Plan: []WBAT PT/OT Hip precautions Lovenox, coumadin 8 mg today
[2017-06-12] MEDS: Enoxaparin(*) 40 MG/0.4 ML SYR SUBCUT SCH (11:45)
--- NOTE | 2017-06-12 11:45 | PN ---
Subjective Date of Service: 06/12/17 Interval History: Pt still feels nauseated and was dizzy when he stood up with PT, but ten walked with PT a fair distance today Objective Active Medications: Acetaminophen (Tylenol Tab*) 650 mg PO Q4H PRN PRN Reason: PAIN OR TEMPERATURE Last Admin: 06/12/17 05:47 Dose: 650 mg Bisacodyl (Dulcolax Supp*) 10 mg [place] DAILY PRN PRN Reason: constipation Diphenhydramine HCl (Benadryl Iv*) 12.5 mg IV Q6H PRN PRN Reason: PRURITIS Docusate Sodium (Colace Cap*) 100 mg PO BID [facility] Last Admin: 06/12/17 08:04 Dose: 100 mg Enoxaparin Sodium (Lovenox(*)) 40 mg SUBCUT Q24H [facility] Last Admin: 06/11/17 11:43 Dose: 40 mg Lactated Ringer's (Lactated Ringers 1000 Ml Bag*) 1,000 mls @ 100 mls/hr IV PER RATE [facility] Last Admin: 06/11/17 09:46 Dose: 100 mls/hr Lactulose (Lactulose*) 30 ml PO Q6H PRN PRN Reason: constipation Magnesium Hydroxide (Milk Of Magnesia Liq*) 30 ml PO BID [facility] Last Admin: 06/12/17 08:04 Dose: 30 ml Magnesium Hydroxide (Milk Of Magnesia Liq*) 30 ml PO Q6H PRN PRN Reason: constipation Pto: Betaine Hcl 300 (Mg) 1 dose PO TID WITH MEALS [facility] Last Admin: 06/12/17 08:01 Dose: 1 dose Ondansetron HCl (Zofran Inj*) 4 mg IV Q6H PRN PRN Reason: nausea Last Admin: 06/11/17 08:31 Dose: 4 mg Ondansetron HCl (Zofran Tab*) 4 mg PO Q6H PRN PRN Reason: NAUSEA Last Admin: 06/12/17 05:47 Dose: 4 mg Polyethylene Glycol/Electrolytes (Miralax*) 17 gm PO DAILY PRN PRN Reason: Constipation Tramadol HCl (Ultram*) 50 mg PO Q6H PRN PRN Reason: PAIN Last Admin: 06/12/17 08:04 Dose: 50 mg Warfarin Sodium (Coumadin Tab(*)) 8 mg PO ONCE@1700 ONE PRN Reason: Protocol Stop: 06/12/17 17:01 Vital Signs - 8 hr 06/12/17 06/12/17 06/12/17 03:47 03:56 08:00 Temperature 98.1 F Pulse Rate 61 Respiratory 16 18 18 Rate Blood Pressure 102/49 (mmHg) O2 Sat by Pulse 97 94 Oximetry 06/12/17 06/12/17 06/12/17 08:04 08:58 09:03 Temperature 98.1 F Pulse Rate 56 Respiratory 18 12 Rate Blood Pressure 88/49 96/54 (mmHg) O2 Sat by Pulse 94 Oximetry 06/12/17 11:29 Temperature 98.3 F Pulse Rate 50 Respiratory 14 Rate Blood Pressure 89/42 (mmHg) O2 Sat by Pulse 94 Oximetry Oxygen Devices in Use Now: None Appearance: 71 yo M in nAD, aAOx3 Eyes: No Scleral Icterus, PERRLA Ears/Nose/Mouth/Throat: NL Teeth, Lips, Gums, Mucous Membranes Moist Neck: NL Appearance and Movements; NL JVP, Trachea Midline Respiratory: Symmetrical Chest Expansion and Respiratory Effort, Clear to Auscultation Cardiovascular: NL Sounds; No Murmurs; No JVD, RRR Abdominal: NL Sounds; No Tenderness; No Distention Lymphatic: No Cervical Adenopathy Extremities: No Edema, No Clubbing, Cyanosis Skin: No Nodules or Sclerosis, - - R post op hip with no evidence of hematoma, dressings not removed Neurological: Alert and Oriented x 3, NL Muscle Strength and Tone Result Diagrams: 06/12/17 05:16 06/11/17 04:40 Assess/Plan/Problems-Billing Assessment: 71 yo M with h/o opioid intolerance and bradycardia post op R elective hip replacement - Patient Problems (1) Bradycardia Comment: pt has h/o brdycardia at baseline, exacerbated by narcotics that were discontinued, now back to baseline (2) Hypotension Comment: resolving with IVF (3) DVT prophylaxis Comment: lovenox and coumadin Status and Disposition: Thank you for consult, will sign off, please call if needed
[2017-06-12] MEDS ORDERED: Warfarin TAB(*) 4 MG PO ONE (17:00)
[2017-06-13] MEDS: Acetaminophen TAB* 325 MG PO PRN ×2 (02:54→08:16)
[2017-06-13 05:59] LABS: Hematocrit 31 % (42-52); Hemoglobin 10.6 g/dl (14.0-18.0); Mean Platelet Volume 8 um3 (7.4-10.4); Platelet Count 173 10^3/ul (150-450)
[2017-06-13 06:07] LABS: INR 2.69 (0.77-1.02)
[2017-06-13] MEDS: Docusate CAP* 100 MG PO SCH (08:16)
[2017-06-13] MEDS: BETAINE HCL 300 MG PO SCH (08:17)
[2017-06-13] MEDS: Magnesium Hydroxide LIQ* 30 ML UDC PO SCH (08:17)
--- NOTE | 2017-06-13 09:12 | PN ---
Progress Note - Progress Note Date of Service: 06/13/17 SOAP: Subjective: 71 y/o male s/p R KARLA by Dr. Watt. Patient c/o nausea, no vomiting. + lightheaded at times, no change with positioning. + BM this AM, relieved abdominal discomfort. VSS, afebrile overnight- mild hypotension- patient states low at baseline. working well with PT, pain moderately controlled with tramadol, unable to take percocet d/t side effects. Objective: General- Well appearing, NAD, AO. sitting in chair comfortably. MSK- RLE- DF/PF = b/l, PT 2+, negative homans sign b/l, dressing removed, incision c/d/i, no drainage noted, no induration, redressed. SITLT b/l. Vital Signs Temp 98.5 F 06/13/17 07:51 Pulse 58 06/13/17 07:51 Resp 12 06/13/17 07:51 BP 102/56 06/13/17 07:51 Pulse Ox 100 06/13/17 07:51 Intake & Output 06/12/17 06/13/17 06/13/17 18:59 06:59 18:59 Intake Total 700 720 200 Output Total 175 300 Balance 525 420 200 Intake: Oral 700 720 200 Output: Urine 175 300 Other: Estimated Void Small Medium Date of Last Bowel 06/13/17 Movement # Bowel Movements 0 1 Estimated Stool Amount Small # Voids 1 2 Assessment: Stable 71 y/o male s/p R KARLA by Dr. Watt. Plan: - DVT prophylaxis- D/C lovenox, coumadin at home - Continue PT/ OT - Follow up with Dr. Watt within 10-14 days - H&H - stable - post-op IV ABX - completed - Bowel regimen - colace, miralax/ suppositories prn - tramadol for pain, d/c percocet. Active Medications Generic Name Dose Route Start Last Admin Trade Name Freq PRN Reason Stop Dose Admin Acetaminophen 650 mg 06/11/17 12:00 06/13/17 08:16 Tylenol Tab* PO 650 mg Q4H PRN Administration PAIN OR TEMPERATURE Bisacodyl 10 mg 06/10/17 10:21 Dulcolax Supp* [place] DAILY PRN constipation Diphenhydramine HCl 12.5 mg 06/11/17 06:00 Benadryl Iv* IV Q6H PRN PRURITIS Docusate Sodium 100 mg 06/10/17 21:00 06/13/17 08:16 Colace Cap* PO 100 mg BID DIETER Administration Lactated Ringer's 1,000 mls @ 100 mls/hr 06/10/17 11:00 06/11/17 09:46 Lactated Ringers 1000 Ml Bag* IV 100 mls/hr PER RATE DIETER Administration Lactulose 30 ml 06/10/17 10:21 06/12/17 15:43 Lactulose* PO 30 ml Q6H PRN Administration constipation Magnesium Hydroxide 30 ml 06/10/17 21:00 06/13/17 08:17 Milk Of Magnesia Liq* PO Not Given BID [facility] Magnesium Hydroxide 30 ml 06/10/17 10:21 Milk Of Magnesia Liq* PO Q6H PRN constipation Pto: Betaine Hcl 300 1 dose 06/11/17 08:00 06/13/17 08:17 Mg PO 1 dose TID WITH MEALS DIETER Administration Ondansetron HCl 4 mg 06/11/17 06:00 06/11/17 08:31 Zofran Inj* IV 4 mg Q6H PRN Administration nausea Ondansetron HCl 4 mg 06/11/17 06:00 06/12/17 05:47 Zofran Tab* PO 4 mg Q6H PRN Administration NAUSEA Polyethylene Glycol/Electrolytes 17 gm 06/10/17 10:21 Miralax* PO DAILY PRN Constipation Tramadol HCl 50 mg 06/10/17 13:49 06/12/17 08:04 Ultram* PO 50 mg Q6H PRN Administration PAIN
[2017-06-13] MEDS: Ondansetron TAB* 4 MG PO PRN (09:32)
[2017-06-13] MEDS: traMADol TAB* 50 MG PO PRN (11:43)
[2017-06-13 13:45] VITALS: BP 117/55
--- NOTE | 2017-06-14 14:40 | DS ---
DISCHARGE SUMMARY: DATE OF ADMISSION: 06/10/17 DATE OF DISCHARGE: 06/13/17 ATTENDING PROVIDER: Dr. Watt * (DICTATED BY ARTURO FOUNTAIN) CHIEF COMPLAINT: 1. Right hip pain. 2. Benign prostatic hypertrophy. 3. History of basal cell carcinoma. 4. Raynaud's disease. 5. History of deep venous thrombosis in 2011. DISCHARGE DIAGNOSES: 1. Status post right total hip arthroplasty. 2. Benign prostatic hypertrophy. 3. History of basal cell carcinoma. 4. Raynaud's disease. 5. History of deep venous thrombosis in 2011. PROCEDURE: Right total hip arthroplasty. CONSULTATIONS: 1. Physical Therapy. 2. Occupational Therapy. 3. Medicine. BRIEF HISTORY: Mr. 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 Virginia Watt on 06/10/17. HOSPITAL COURSE: The patient was admitted to [facility] on 06/10/17 where he underwent a right total hip arthroplasty which was uncomplicated with an estimated blood loss of 350 cc. He recovered on the surgical short-stay unit. On postop day 2, he was , he was voiding on his own without difficulty. He was able to eat a regular diet. His pain was controlled with tramadol after he failed p.o. Percocet with increased nausea and lightheadedness. His labs and vital signs remained stable, with slight hypotension, which is near the patient's baseline. He is weightbearing as tolerated on the right lower extremity and advanced appropriately with physical therapy. DVT prophylaxis was managed with Lovenox and Coumadin until he reached a therapeutic INR. By postoperative day 3, he was orthopedically and medically stable for discharge to go home with home services. PHYSICAL EXAMINATION: General: Well appearing, in no acute distress. Alert and oriented. Vital signs: Temperature 98.5, pulse 58, respirations 12, blood pressure 102/66, pulse oxygenation 100% on room air. Musculo-skeletal Exam: Revealed positive dorsiflexion and plantarflexion on the right lower extremity with posterior tibial pulse of 2+. Negative Homans sign bilaterally. Dressing removed, incision was clean, dry, and intact with no drainage or erythema or induration noted. Sensation intact bilateral lower extremities. LABORATORY DATA: On the day of discharge include H and H of 10.6 and 31 with an INR of 2.69. DISCHARGE MEDICATIONS: 1. Tylenol/acetaminophen 650 mg p.o. q.4 to 6 hours p.r.n. 2. Vitamin C 500 mg p.o. q.a.m. 3. Aspirin 81 mg p.o. q.p.m. 4. Betaine 300 mg p.o. t.i.d. with meals. 5. Brain Kvng capsule 2 tablets p.o. q.a.m. 6. Calcium carbonate 500 mg p.o. q.a.m. 7. Colace 100 mg p.o. b.i.d. 8. Glucosamine and chondroitin 1 cap p.o. q.a.m. 9. Lycopene 20 mg p.o. q.a.m. 10. Magnesium oxide 500 mg p.o. q.a.m. 11. Acumed 1 drop both eyes q.a.m. 12. Fish oil 1200 mg p.o. q.a.m. 13. Zofran 4 mg p.o. q.8 hours p.r.n. for nausea. 14. MiraLAX 17 g daily p.r.n. for constipation. 15. Saw palmetto 1 tab p.o. t.i.d. 16. Tramadol 50 mg p.o. q.4 to 6 hours p.r.n. for pain. 17. Triamcinolone 0.5% 1 application topically b.i.d. 18. Vitamin D3, 200 mg p.o. q.a.m. 19. Coumadin 2 mg p.o. daily per physician's instructions at 5 p.m. CONDITION ON DISCHARGE: Stable. DISCHARGE INSTRUCTIONS: Mr. Koehler is a very pleasant 71-year-old gentleman status post right total hip arthroplasty which is uncomplicated on 06/10/17. He is to go home with visiting home nurse services and home PT. He is medically and orthopedically stable for discharge. His vital signs are stable. He will restart his home medications. He will continue his multiple vitamins. He will hold his Coumadin for the next 2 days, take 2 mg on Friday night with INR draw on Friday. He will have INR draws every Friday and with visiting home nurse services. He will remain weightbearing as tolerated on the right lower extremity. He will take tramadol as needed for pain control with Tylenol as a base. He will take Colace as needed for constipation. He will follow up with Dr. Watt of Orthopedics in 10 to 14 days for incision check and suture removal. He was instructed to go to the ER should he develop chest pain or shortness of breath. Should he develop fever, increasing pain, or redness, he is to call the office immediately. ARTURO FOUNTAIN [id number]/[facility] #: [id number] [place]
== END 2017-06-13 14:10 | disposition home health service (06) | DRG 470 ==
LOC: AA 07:17 → SSU 14:06
PROVIDERS: ADMIT Orthopaedic Surgery Adult Reconstructive Orthopaedic Surgery; ATTEND Orthopaedic Surgery Adult Reconstructive Orthopaedic Surgery
PROC: 0SR904A Replacement of Right Hip Joint with Ceramic on Polyethylene Synthetic Substitute, Uncemented, Open Approach (ICD-10-PCS; principal; 2017-06-10 09:00)
DX: M16.11 Unilateral primary osteoarthritis, right hip (principal); I73.00 Raynaud's syndrome without gangrene; N40.0 Benign prostatic hyperplasia without lower urinary tract symptoms; M41.9 Scoliosis, unspecified; Z96.642 Presence of left artificial hip joint; Z96.652 Presence of left artificial knee joint; I95.9 Hypotension, unspecified; R00.1 Bradycardia, unspecified; R11.0 Nausea; R42 Dizziness and giddiness; K30 Functional dyspepsia; Y92.239 Unspecified place in hospital as the place of occurrence of the external cause; T40.2X5A Adverse effect of other opioids, initial encounter; Z86.718 Personal history of other venous thrombosis and embolism; Z85.828 Personal history of other malignant neoplasm of skin; Z88.5 Allergy status to narcotic agent; Z88.8 Allergy status to other drugs, medicaments and biological substances; Z91.018 Allergy to other foods; Z82.49 Family history of ischemic heart disease and other diseases of the circulatory system; Z82.3 Family history of stroke; Z79.82 Long term (current) use of aspirin; Z79.01 Long term (current) use of anticoagulants
CPT/HCPCS: 36415; 71045; 80048; 85014; 85018; 85049; 85610; 88304; 88311; 93005; 94760; A9270-GY; C1713; C1776; G8978-GP-CJ; G8978-GP-CK; G8978-GP-CL; G8979-GP-CH; G8979-GP-CI; G8980-GP-CJ; G8987-GO-CK; G8988-GO-CI; J0690; J1100; J1170; J1650; J2250; J2405; J2704; J2795; J3010

== ENCOUNTER 2017-06-16 00:08 | Emergency (ER) | payer MEDICARE, OTHER ==
[2017-06-16] MEDS ORDERED: traMADol TAB* 50 MG PO ONE (00:40)
[2017-06-16 02:06] VITALS: BP 126/71
[2017-06-16 02:06] LABS: INR 2.08 (0.77-1.02)
--- NOTE | 2017-06-16 02:37 | ED ---
Nicholas Timmons Julia, scribed for Hoda Ragsdale MD on 06/16/17 at 0058 . Lower Extremity - HPI Summary HPI Summary: This patient is a 71 year old M presenting to [facility] with a chief complaint of RLE pain and swelling for the past six days. Patient had left hip surgery on with Dr. Watt. He states his swelling has not improved since the surgery. The patient rates the pain 7/10 in severity. Patient states he took Tylenol at 22:00 and Tramadol at 00:30. Patient reports a hx of DVT 5 years ago. He does not regularly take Coumadin, but has been taking 2mg of Coumadin daily s/p surgery. Patient is attending physical therapy twice a day, and has been elevating and icing. - History of Current Complaint Chief Complaint: EDExtremityLower Stated Complaint: BOTH LEGS SWOLLEN Time Seen by Provider: 06/16/17 00:29 Hx Obtained From: Patient Mechanism Of Injury: Other - s/p surgery Onset of Pain: Days Onset/Duration: Still Present Pain Intensity: 7 Pain Scale Used: 0-10 Numeric Timing: Constant Location: Is Diffuse - RLE Associated Signs And Symptoms: Positive: Swelling, Redness Able to Bear Weight: Yes Related History: Other - recent sx - Allergies/Home Medications Allergies/Adverse Reactions: Allergies Allergy/AdvReac Type Severity Reaction Status Date / Time morphine Allergy Severe Anaphylatic Verified 06/16/17 00:24 Shock celecoxib Allergy Intermediate Difficulty Verified 06/16/17 00:24 Breathing diphenhydramine Allergy Intermediate Dizziness Verified 06/16/17 00:24 rofecoxib Allergy Intermediate Difficulty Verified 06/16/17 00:24 Breathing oxycodone AdvReac Nausea And Verified 06/16/17 00:24 Vomiting environmental Allergy Intermediate Rash Uncoded 06/16/17 00:24 PMH/Surg Hx/FS Hx/Imm Hx Cardiovascular History: Reports: Hx Deep Vein Thrombosis - PATIENT HAS SEVERAL BLOOD CLOTS LEFT LEG, Other Cardiovascular Problems/Disorders - vasovagal reponse after blood drawn, bending over then standing, DVT left Respiratory History: Reports: Other Respiratory Problems/Disorders - hx pneumonia GI History: Reports: Hx Gastroesophageal Reflux Disease, Hx Ulcer - stomach - 30 years ago, Other GI Disorders - had malaria synptoms when [place] the country years ago, parasites Musculoskeletal History: Reports: Hx Arthritis - , hands,neck, right hip,knne, back, Hx Bursitis - right shoulder, mild Denies: Other Musculoskeletal History Sensory History: Reports: Hx Cataracts - mild in both eyes, Hx Contacts or Glasses - glasses Denies: Hx Hearing Aid Opthamlomology History: Reports: Hx Cataracts - mild in both eyes, Hx Contacts or Glasses - glasses Neurological History: Reports: Hx Headaches - as a child - Cancer History Cancer Type, Location and Year: Skin cancer. Possibly prostate ca Hx Chemotherapy: No - Surgical History Surgery Procedure, Year, and Place: total left hip and knee, hip- 2001, [facility] , left knee, 2006, [facility]. cyst removal right scrotum, 2006. left inguinal hernia repair, 1984, [facility]. right proximal eow carpectomy and carpal tunnel release 08/2016 Hx Anesthesia Reactions: Yes - pt states he almost , was given morphine Infectious Disease History: No Infectious Disease History: Reports: Hx Human Immunodeficiency Virus (HIV) Denies: History Other Infectious Disease, Traveled Outside the [place] in Last 30 Days - Family History Known Family History: Positive: Cardiac Disease - CHF, [place] - Social History Alcohol Use: None Substance Use Type: Reports: None Smoking Status (MU): Never Smoked Tobacco Review of Systems Positive: Myalgia - RLE, Edema - RLE Positive: Other - redness RLE All Other Systems Reviewed And Are Negative: Yes Physical Exam - Summary Physical Exam Summary: VITAL SIGNS: Reviewed. GENERAL: Patient is a well-developed and nourished male who is lying comfortable in the stretcher. Patient is not in any acute respiratory distress. HEAD AND FACE: No signs of trauma. No ecchymosis, hematomas or skull depressions. No sinus tenderness. EYES: PERRLA, EOMI x 2, No injected conjunctiva, no nystagmus. EARS: Hearing grossly intact. Ear canals and tympanic membranes are within normal limits. MOUTH: Oropharynx within normal limits. NECK: Supple, trachea is midline, no adenopathy, no JVD, no carotid bruit, no c- spine tenderness, neck with full ROM. CHEST: Symmetric, no tenderness at palpation SKIN: Dry and warm LUNGS: Clear to auscultation bilaterally. No wheezing or crackles. CVS: Regular rate and rhythm, S1 and S2 present, no murmurs or gallops appreciated. ABDOMEN: Soft, non-tender. No signs of distention. No rebound no guarding, and no masses palpated. Bowel sounds are normal. EXTREMITIES: FROM in all major joints, no cyanosis or clubbing. Incision at R hip is healing well with no infection. There is RLE edema with no warmness or tenderness NEURO: Alert and oriented x 3. No acute neurological deficits. Speech is normal and follows commands. Triage Information Reviewed: Yes Vital Signs On Initial Exam: Initial Vitals Temp Pulse Resp BP Pulse Ox 98.0 F 86 18 120/74 98 06/16/17 00:19 06/16/17 00:19 06/16/17 00:19 06/16/17 00:19 06/16/17 00:19 Vital Signs Reviewed: Yes Diagnostics - Vital Signs Vital Signs Temp Pulse Resp BP Pulse Ox 06/16/17 00:19 98.0 F 86 18 120/74 98 - Laboratory Lab Statement: Any lab studies that have been ordered have been reviewed, and results considered in the medical decision making process. Lower Extremity Course/Dx - Course Course Of Treatment: Patient presents with RLE swelling and pain s/p right hip surgery on 06/10/[address] Watt. Patient is given Tramadol. Patient refused to wait for bloodwork and is discharged and instructed to follow up with Dr. Watt tomorrow. - Diagnoses Provider Diagnoses: Swelling of right lower extremity, Status post right hip replacement Discharge - Discharge Plan Condition: Stable Disposition: HOME Patient Education Materials: Total Hip Replacement (DC) Referrals: Virginia Watt MD [Medical Doctor] - (Follow up with Dr. Watt tomorrow.) Additional Instructions: RETURN TO THE EMERGENCY DEPARTMENT FOR CHANGING OR WORSENING SYMPTOMS. The documentation as recorded by the Nicholas stevenson Julia accurately reflects the service I personally performed and the decisions made by , Hoda Ragsdale MD.
== END 2017-06-16 02:04 | disposition home or self-care (01) ==
LOC: ED 00:08
DX: M79.89 Other specified soft tissue disorders (principal); Z96.641 Presence of right artificial hip joint; Z86.718 Personal history of other venous thrombosis and embolism
CPT/HCPCS: 36415; 85610; 85730; 99282; A9270-GY

== ENCOUNTER 2018-07-18 13:52 | Emergency (ER) | payer MEDICARE, OTHER ==
--- OUTSIDE RECORDS SUMMARY | 2018-07-18 14:27 | XMS REPORT | Continuity of Care Document ---
:1945 External Reference #:[id number] Author Name BarreraTala maya Care Team Providers Name Role Phone Lili Aquino MD Primary Care Physician Unavailable Payers Date Identification Numbers Payment Provider Subscriber Policy Number: [id number] Medicare Colt Koehler PayID: [id number] [address] [facility] [place] [address] Effective: 2011 Policy Number: [id number] Medicare Colt Koehler Expires: 2018 PayID: [id number] [address] [place] [address] Effective: 2011 Policy Number: [id number] [facility] Colt Koehler Expires: 2016 PayID: [id number] [address] [address] [place] [address] Policy Number: [id number] [facility] Coltsukhdeep Koehler PayID: [id number] [address] [place] [address] PayID: [id number] Medicare D - Drug Plan Colt Koehler Advance Directives Description No Information Available Problems Active Problems Provider Date Benign prostatic hypertrophy without Sunny Leyva M.D.,FACP Onset: 08/2010 outflow obstruction Raynaud's disease Sunny Leyva M.D.,FACP Onset: 03/05/2011 Basal Cell Carcinoma Skin Upper Limb Sunny Leyva M.D.,FACP Onset: 09/2012 Including Shoulder Raised prostate specific antigen Sunny Leyva M.D.,FACP Onset: 2012 Osteoarthritis of hip Sunny Leyva M.D.,FACP Onset: 03/12/2016 Note: right, LT replaced in past Localized, primary osteoarthritis of Garcia Antoine MD Onset: 06/21/2016 the wrist Chondrocalcinosis of wrist joint Garcia Antoine MD Onset: 07/03/2016 Carpal tunnel syndrome of right wrist Garcia Antoine MD Onset: 2016 Lesion of ulnar nerve Garcia Antoine MD Onset: 09/03/2016 Localized, primary osteoarthritis of Virginia Watt M.D. 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 Sunny Leyva M.D.,FACP Onset: 12/24 distal lower extremity Inactive: 04/16/2013 Chronis Venous Embolism&Thrombosis,Deep Sunny Leyva, Onset: 04/16/2013 Vessel Distal Lower Mitchel,FACP Inactive: 12/06/2014 Family History Date Family Member(s) Observation Comments General Heart Disease General Stroke Father Arthritis, Osteo Father 95 : (age 97 Father due to Natural Years) Causes Father Headache Father Osteoporosis kyphosis Mother due to [place] () - age 85 Mother Stroke First Brother Gallstones First Brother Sleep Apnea First Brother syncope once Paternal Grandmother Mental Illness schizophrenia Social History Type Date Description Comments Sex Unknown Marital Status Lives With Occupation Teacher semi-retired Tobacco Use Start: Unknown Never Smoked Cigarettes ETOH Use 01/22/2016 Denies alcohol use Tobacco Use Start: Unknown Patient has never smoked Recreational Drug Use Denies Drug Use Smoking Status Reviewed: 07/17/18 Patient has never smoked Exercise Type/Frequency Exercises regularly Allergies, Adverse Reactions, Alerts Active Allergies Reaction Severity Comments Date Morphine and Related heart stops 03/05/2011 vioxx chest pain 03/05/2011 Celebrex chest pain 03/05/2011 Oxycodone heart problems 03/05/2011 Milk-related Compounds stomach upset 03/05/2011 Yeast-related Products skin rash 03/05/2011 wheat stomach upset 03/05/2011 Morphine cardiac arrest 12/06/2014 Dilaudid hypotension 2017 Benadryl paradoxical 2017 Medications Active Medications SIG Qnty Indications Ordering Date Provider Cyclobenzaprine HCL 1-2 tab every 8 45tabs Honey Melo MD 07/13/2018 5mg hours as needed Tablets Pregnenolone from Dr. Falcon in Sunny Muñoz 06/11/2018 Micronized Am Mitchel Leyva,FACP Powder Amoxicillin take four capsules 4caps Virginia Watt, 01/29/2018 500mg by mouth one hour M.DJorge Capsules before appointment Doxycycline Hyclate two tabs PO x1 day 6tabs Mike 09/29/2017 100mg then prn for tick Mitchel Pereyra Tablets bite Aspirin Adult Low Dose 1 by mouth every 30tabs Sunny Muñoz 08/01/2016 day Mitchel Leyva,FACP 81mg Tablets DR Kai Lujan 1-2 twice a day as Sunny Muñoz 05/22/2016 200mg Tablets needed Mitchel Leyva,FACP Triamcinolone every day as 30gm Sunny Muñoz 03/12/2016 Acetonide needed Mitchel Leyva,FACP 0.5% Cream T.E.D. Below Knee 2units Sunny Muñoz 12/15/2012 Med-X Mitchel Leyva,FACP Misc Gabadone Unknown Capsules Calcium 1 by mouth twice a Unknown 500mg Tablets day Homeopathic Eyedrops Unknown Vitamin C 1 po qd Unknown 500mg Tablets Betaine HCL 2 with meals Unknown 300mg Tablets Acetyl L-Carnitine daily Unknown 500mg Capsules Calcium/Magnesium/Luma daily Unknown mind3 [id number] Tablets Lycopene takes 2 daily Unknown 10mg Capsules Pygeum Bark daily Unknown 50mg Powder Saw [place] Plus 1 capsule daily Unknown 320mg Capsules Glucosamine 1 daily Unknown Chondroitin 1500 Complex Maximum Strength 1500Com Capsules Fish Oil Concentrate takes daily Unknown 910mg Capsules History Medications Valerian Root 1 tab in evening 60caps Sunny Muñoz 2017 - 500mg Capsules Mitchel Leyva,FACP 06/11/2018 Doxycycline Monohydrate 1 tab by mouth 14tabs S70.36 Kourtney Guardado, 2017 - 100mg twice a day for 1A EMS MANAGER 2017 Tablets 14 days Doxycycline Hyclate take 1 tab twice 28tabs S70.36 Anne-Marieofisukhdeep Guardado, 2017 - 100mg a day for 14 1A EMS MANAGER 08/09/[address] days Cyclobenzaprine HCL take 1 tab by 60tabs Z96.64 Virginia Watt, 06/18/2017 - 10mg mouth 2 times a 1 M.D. 09/07/2017 Tablets day as needed Tramadol HCL one tablet every 90tabs Virginia Watt, 06/13/2017 - 50mg Tablets 4-6 hours as M.D. 2017 needed for pain orally Colace one tablet twice 60caps Virginia Watt, 06/13/2017 - 100mg Capsules daily M.D. 09/07/2017 post-operatively Zofran one tablet every 14tabs Li 06/13/2017 - 4mg Tablets 6-8 hours as ARTURO Ahuja 09/07/2017 needed for nausea Hydrocodone-Acetaminophen 1 or 2 tabs by 30tabs Garcia Antoine, 2016 - mouth every 6-8 MD 10/04/2016 5-325mg Tablets hours as needed for pain Metaxalone 1 by mouth 30tabs M46.1 Sunny Muñoz 01/22/2016 - 400mg Tablets 3x/day if needed Mitchel Leyva,[facility] 05/22/2016 Mometasone Furoate apply topically 60g L40.9 Jaden Phelan, 05/15/2015 - 0.1% Cream to affected area [employer] 06/09/2015 2 times a day until rash is resolved Cyclobenzaprine HCL take one tablet 20tabs T84.84 Sunny Muñoz 03/17/2015 - 5mg Tablets by mouth twice a xS Mitchel Leyva,[facility] 04/05/2015 day as needed Doxycycline Monohydrate si bid x 7 14caps 088.81 Sunny Muñoz 2014 - 100mg days Mitchel Leyva,[facility] 12/19/2014 Capsules Meloxicam 1 by mouth twice 40tabs A69.29 Sunny Muñoz 12/06/2014 - 7.5mg Tablets a day as needed Mitchel Leyva,[facility] 04/05/2015 Doxycycline Hyclate 1 po bid x7 days 14tabs A69.29 Sunny Muñoz 2014 - 100mg Mitchel Leyva,[facility] 12/26/2014 Tablets Mupirocin twice a day as 15g 478.11 Sunny Muñoz 08/25/2014 - 2% Ointment needed Mitchel Leyva,[facility] 03/17/2015 Keflex 1 tab by mouth 14caps 704.8 Guru Teran NP 08/05/2014 - 500mg Capsules twice a day x 7 08/24/2014 days Aspirin 1 by mouth every Guru Teran NP 12/09/2013 - 81mg Tablets day 05/26/2017 Doxycycline Monohydrate si twice a 42caps 088.81 Guru Teran NP 2013 - 100mg day x 21 days 01/21/2014 Capsules Omeprazole 1 by mouth every 30caps Guru Teran NP 12/02/2013 - 20mg Capsules DR day 12/09/2013 Aspirin 1 by mouth every 30tabs 453.40 Sunny Muñoz 07/11/2013 - 325mg Tablets day Mitchel Leyva,[facility] 12/09/2013 Famciclovir 1 tab po bid 60tabs Sunny Muñoz 05/25/2013 - 250mg Tablets Mitchel Leyva,[facility] 11/30/2013 Xarelto po qd 30tabs 453.40 Sunny Muñoz 12/24/2012 - 20mg Tablets Mitchel Leyva,[facility] 07/11/2013 Xarelto 1 po bid for 3 42tabs 453.40 Darci Garcias 12/10/2012 - 15mg Tablets yamileth Santiago M.D. 12/24/2012 Amoxicillin 2 tabs po bid 28tabs 466.0 Sunny Muñoz 12/09/2011 - 500mg Tablets for 7 days Mitchel Leyva,[facility] 01/03/2012 Benzonatate po tid prn 20caps 466.0 Sunny Muñoz 12/09/2011 - 200mg Capsules Mitchel Leyva,[facility] 01/03/2012 Doxycycline Hyclate 2 tabs po x1 4tabs 054.19 Sunny Muñoz 08/30/2011 - 100mg then prn Mitchel Leyva,[facility] 01/03/2012 Tablets Valacyclovir HCL po q8h for 1 wk 21tabs 054.19 Sunny Muñoz 08/30/2011 - 1gm Tablets prn Mitchel Leyva,[facility] 01/03/2012 Carisoprodol 1 tab po qhs 30tabs 719.45 Sunny Muñoz 08/02/2011 - 250mg Tablets Mitchel Leyva,[facility] 01/03/2012 Doxycycline Hyclate 2 tabs po x1 4tabs Sunny Muñoz 08/28/2010 - 100mg then prn Mitchel Leyva,[facility] 10/12/2010 Tablets Keflex 1 po qid 40caps 782.1 Hiral 12/30/2008 - 500mg Capsules Mitchel De La Rosa 08/30/2010 Multivitamins 1 capsule daily QS Unknown - Capsules 03/12/2016 Phosphatidylserine 1 capsule daily Unknown - 20% Capsule 12/08/2012 Garces 3x times a day Unknown - 12/09/2013 Amoxicillin take 4 capsules 12caps Sunny Muñoz - 500mg Capsules 1 hour prior to Mitchel Leyva,[facility] 11/30/2013 dental procedure as needed Lysine Unknown - 500mg Capsules 11/30/2013 Selenium 1 po qd Unknown - 100mcg Tablets 02/12/2013 Motrin Ib 1 tab po 4-6 60tabs Unknown - 200mg Tablets times daily or 12/14/2013 as needed Tumeric Unknown - 05/26/2017 Tylenol Unknown - 09/07/2017 Iron 1 by mouth every Zsofia Geo, - 325(65Fe) mg Tablets day EMS MANAGER 2017 Medications Administered in Office Medication SIG Qnty Indications Ordering Provider Date Celestone 3 mg and 3mg Garcia Antoine MD 12/31/2016 Injection Immunizations CPT Code Status Date Vaccine Reaction Lot # [id number] Given 01/19/2018 Influenza Virus Vaccine, [id number] Quadrivalent, Split, Preservative Free [id number] Given 11/10/2017 Tetanus And Diptheria (Td) none [id number] For Adult Use Preservative Free 53379 Given 04/04/2017 Influenza Virus Vaccine, no reaction, pt [id number] Quadrivalent, Split, tolerated well Preservative Free 26376 Given 01/22/2016 Influ Virus Vaccine, no reaction [id number] Quadrivalent, Split Virus, [place] [address] Given 04/05/2015 Influenza Virus Vaccine, no reaction noted [id number] Quadrivalent, Split, Preservative Free 48438 Given 04/05/2015 Pneumococcal Conjugate no reaction noted [id number] Vaccine 13 Valent For Intramuscular Use 13641 Given 02/08/2014 Flu Vaccine Split Virus [id number] Preservative Free For Indiv 3Yr Older 28330 Given 01/04/2013 Flu Vaccine Split Virus [id number] Preservative Free For Indiv 3Yr Older Q2037 Given 02/27/2012 Fluvirin Im 3Yrs And Older [id number] 48254 Given 02/27/2012 Pneumonia Vaccine [id number] 44151 Given 08/02/2011 Tdap - [id number] Tetanus/Diptheria/Acellular Pertussis 26326 Given 03/05/2011 Flu Vaccine Split Virus [id number] Preservative Free For Indiv 3Yr Older 48410 Given 10/12/2010 Zoster (Zostavax) [id number] Vital Signs Date Vital Result Comment 07/17/2018 3:49pm Height 71 inches 5'11" Weight 151.00 lb Heart Rate 62 /min BP Systolic Sitting 103 mmHg BP Diastolic Sitting 60 mmHg BMI (Body Mass Index) 21.1 kg/m2 07/08/2018 11:44am Height 71 inches 5'11" Weight 151.38 lb Heart Rate 64 /min BP Systolic 114 mmHg BP Diastolic 62 mmHg Body Temperature 96.3 F O2 % BldC Oximetry 98 % BMI (Body Mass Index) 21.1 kg/m2 06/11/2018 1:38pm Height 71 inches 5'11" Weight 151.12 lb Heart Rate 56 /min BP Systolic 100 mmHg BP Diastolic 62 mmHg Body Temperature 96.9 F O2 % BldC Oximetry 97 % BMI (Body Mass Index) 21.1 kg/m2 09/10/2017 11:44am Height 71 inches 5'11" Weight 155.00 lb Heart Rate 68 /min BP Systolic 100 mmHg BP Diastolic 42 mmHg Respiratory Rate 16 /min Pain Level 0 BMI (Body Mass Index) 21.6 kg/m2 09/08/2017 2:42pm Height 71 inches 5'11" Weight 155.00 lb BP Systolic 96 mmHg BP Diastolic 52 mmHg Body Temperature 97.4 F BMI (Body Mass Index) 21.6 kg/m2 2017 3:36pm Height 71 inches 5'11" Weight 155.00 lb Heart Rate 64 /min BP Systolic Sitting 104 mmHg BP Diastolic Sitting 62 mmHg Body Temperature 96.9 F O2 % BldC Oximetry 99 % BMI (Body Mass Index) 21.6 kg/m2 08/06/2017 1:56pm Height 71 inches 5'11" Weight 152.50 lb Heart Rate 68 /min BP Systolic Sitting 98 mmHg BP Diastolic Sitting 64 mmHg Body Temperature 97.6 F O2 % BldC Oximetry 97 % BMI (Body Mass Index) 21.3 kg/m2 07/25/2017 11:35am Height 71 inches 5'11" Heart Rate 72 /min BP Systolic 98 mmHg BP Diastolic 58 mmHg Respiratory Rate 16 /min Body Temperature 97.4 F Pain Level 2 06/27/2017 11:14am Height 71 inches 5'11" Weight 156.00 lb BP Systolic 112 mmHg BP Diastolic 64 mmHg Body Temperature 97.7 F Pain Level 2 BMI (Body Mass Index) 21.8 kg/m2 06/18/2017 11:01am Height 71 inches 5'11" Weight 156.00 lb BP Systolic 116 mmHg BP Diastolic 60 mmHg Body Temperature 98.4 F Pain Level 6 BMI (Body Mass Index) 21.8 kg/m2 05/30/2017 10:45am Heart Rate 63 /min BP Systolic 112 mmHg BP Diastolic 70 mmHg Respiratory Rate 16 /min Body Temperature 97.0 F Pain Level 2 05/26/2017 1:03pm Weight 154.00 lb Heart Rate 70 /min BP Systolic Sitting 98 mmHg BP Diastolic Sitting 56 mmHg Body Temperature 97.0 F O2 % BldC Oximetry 97 % 04/11/2017 2:17pm Height 71 inches 5'11" Weight 156.00 lb BP Systolic 108 mmHg BP Diastolic 62 mmHg Respiratory Rate 15 /min Body Temperature 97.1 F Pain Level 2 BMI (Body Mass Index) 21.8 kg/m2 04/04/2017 3:59pm Weight 156.12 lb Heart Rate 56 /min BP Systolic 132 mmHg BP Diastolic 68 mmHg BP Systolic Recheck 98 mmHg LT: 88/40 BP Diastolic Recheck 62 mmHg LT: 88/40 Body Temperature 95.9 F O2 % BldC Oximetry 97 % 04/02/2017 11:55am Height 71 inches 5'11" Weight 152.00 lb Heart Rate 64 /min Respiratory Rate 14 /min Body Temperature 98.0 F Pain Level 1 BMI (Body Mass Index) 21.2 kg/m2 12/31/2016 2:16pm Height 71 inches 5'11" Weight 152.00 lb Heart Rate 64 /min BP Systolic 112 mmHg BP Diastolic 64 mmHg Respiratory Rate 15 /min Body Temperature 96.7 F Pain Level 1 BMI (Body Mass Index) 21.2 kg/m2 10/29/2016 4:03pm Height 71 inches 5'11" Weight 152.00 lb Heart Rate 60 /min BP Systolic 98 mmHg BP Diastolic 64 mmHg Respiratory Rate 15 /min Pain Level 3 BMI (Body Mass Index) 21.2 kg/m2 10/04/2016 11:38am Height 71 inches 5'11" Weight 152.00 lb BP Systolic 101 mmHg BP Diastolic 66 mmHg Body Temperature 98.1 F Pain Level 1 BMI (Body Mass Index) 21.2 kg/m2 09/17/2016 1:49pm Height 71 inches 5'11" Weight 152.00 lb Heart Rate 56 /min BP Systolic 110 mmHg BP Diastolic 71 mmHg Body Temperature 96.7 F BMI (Body Mass Index) 21.2 kg/m2 09/03/2016 2:06pm Height 71 inches 5'11" Weight 152.00 lb Heart Rate 60 /min BP Systolic 110 mmHg BP Diastolic 66 mmHg Respiratory Rate 12 /min Body Temperature 96.3 F Pain Level 2 BMI (Body Mass Index) 21.2 kg/m2 2016 2:35pm Height 71 inches 5'11" Weight 152.00 lb Heart Rate 46 /min BP Systolic 108 mmHg BP Diastolic 62 mmHg Respiratory Rate 16 /min BMI (Body Mass Index) 21.2 kg/m2 07/24/2016 4:10pm Weight 156.12 lb Heart Rate 74 /min BP Systolic Sitting 114 mmHg BP Diastolic Sitting 68 mmHg Body Temperature 97.4 F O2 % BldC Oximetry 98 % 07/03/2016 2:32pm Height 70.5 inches 5'10.50" Weight 154.00 lb Heart Rate 64 /min Respiratory Rate 16 /min Pain Level 4 BMI (Body Mass Index) 21.8 kg/m2 06/21/2016 3:03pm Height 70.5 inches 5'10.50" Weight 154.00 lb Heart Rate 56 /min BP Systolic 119 mmHg BP Diastolic 74 mmHg Respiratory Rate 15 /min Pain Level 2 BMI (Body Mass Index) 21.8 kg/m2 06/10/2016 4:11pm Height 70.5 inches 5'10.50" Weight 154.00 lb Heart Rate 78 /min BP Systolic Sitting 98 mmHg BP Diastolic Sitting 64 mmHg Body Temperature 97.5 F O2 % BldC Oximetry 98 % BMI (Body Mass Index) 21.8 kg/m2 05/22/2016 1:11pm Height 70.5 inches 5'10.50" Weight 150.00 lb Heart Rate 68 /min BP Systolic Sitting 100 mmHg BP Diastolic Sitting 52 mmHg Body Temperature 96.8 F O2 % BldC Oximetry 98 % BMI (Body Mass Index) 21.2 kg/m2 03/12/2016 9:47am Weight 154.00 lb Heart Rate 54 /min BP Systolic Sitting 120 mmHg BP Diastolic Sitting 72 mmHg Respiratory Rate 15 /min Body Temperature 97.3 F O2 % BldC Oximetry 98 % 01/22/2016 2:33pm Weight 155.00 lb Heart Rate 54 /min BP Systolic Sitting 110 mmHg BP Diastolic Sitting 60 mmHg Body Temperature 96.9 F O2 % BldC Oximetry 96 % 05/15/2015 2:52pm Height 70.5 inches 5'10.50" Weight 161.00 lb Heart Rate 74 /min BP Systolic Sitting 100 mmHg BP Diastolic Sitting 68 mmHg Body Temperature 98.0 F O2 % BldC Oximetry 94 % BMI (Body Mass Index) 22.8 kg/m2 04/05/2015 2:32pm Height 70.5 inches 5'10.50" Weight 159.00 lb Heart Rate 54 /min BP Systolic Sitting 117 mmHg BP Diastolic Sitting 72 mmHg Body Temperature 97.1 F O2 % BldC Oximetry 98 % BMI (Body Mass Index) 22.5 kg/m2 03/17/2015 3:48pm Height 70 inches 5'10" Weight 162.50 lb Heart Rate 60 /min BP Systolic Sitting 104 mmHg BP Diastolic Sitting 66 mmHg Respiratory Rate 14 /min Body Temperature 96.7 F tympanic Pain Level 4 O2 % BldC Oximetry 97 % room air BMI (Body Mass Index) 23.3 kg/m2 12/19/2014 2:45pm Height 70 inches 5'10" Weight 158.00 lb Heart Rate 80 /min BP Systolic Sitting 114 mmHg BP Diastolic Sitting 73 mmHg Body Temperature 97.4 F O2 % BldC Oximetry 95 % BMI (Body Mass Index) 22.7 kg/m2 12/06/2014 10:08am Height 70 inches 5'10" Weight 158.00 lb Heart Rate 78 /min BP Systolic Sitting 122 mmHg BP Diastolic Sitting 84 mmHg Body Temperature 98.6 F O2 % BldC Oximetry 98 % BMI (Body Mass Index) 22.7 kg/m2 08/25/2014 11:29am Height 70 inches 5'10" Weight 157.50 lb Heart Rate 67 /min BP Systolic Sitting 110 mmHg BP Diastolic Sitting 62 mmHg Body Temperature 97.4 F O2 % BldC Oximetry 98 % BMI (Body Mass Index) 22.6 kg/m2 08/05/2014 3:29pm Height 70 inches 5'10" Weight 157.00 lb Heart Rate 66 /min BP Systolic Sitting 122 mmHg BP Diastolic Sitting 60 mmHg Body Temperature 98.3 F O2 % BldC Oximetry 98 % BMI (Body Mass Index) 22.5 kg/m2 04/12/2014 2:37pm Weight 163.50 lb Heart Rate 67 /min BP Systolic Sitting 90 mmHg BP Diastolic Sitting 50 mmHg O2 % BldC Oximetry 97 % 12/23/2013 11:08am Weight 165.00 lb Heart Rate 68 /min BP Systolic Sitting 102 mmHg BP Diastolic Sitting 50 mmHg Body Temperature 97.0 F 12/14/2013 1:10pm Weight 166.00 lb Heart Rate 68 /min BP Systolic Sitting 100 mmHg BP Diastolic Sitting 50 mmHg Body Temperature 97.7 F 12/09/2013 10:50am Weight 165.50 lb Heart Rate 64 /min BP Systolic Sitting 98 mmHg BP Diastolic Sitting 56 mmHg Body Temperature 97.3 F 11/30/2013 10:42am Weight 164.00 lb Heart Rate 88 /min BP Systolic Sitting 100 mmHg BP Diastolic Sitting 58 mmHg Body Temperature 97.2 F Pain Level 6 04/16/2013 3:01pm Height 70.75 inches 5'10.75" Weight 163.00 lb Heart Rate 70 /min BP Systolic Sitting 100 mmHg BP Diastolic Sitting 58 mmHg BMI (Body Mass Index) 22.9 kg/m2 02/12/2013 9:52am Weight 165.00 lb Heart Rate 68 /min BP Systolic Sitting 118 mmHg BP Diastolic Sitting 60 mmHg 01/22/2013 8:38am Height 71 inches 5'11" Weight 164.25 lb Heart Rate 68 /min BP Systolic Sitting 104 mmHg BP Diastolic Sitting 60 mmHg Body Temperature 97.9 F BMI (Body Mass Index) 22.9 kg/m2 01/04/2013 9:15am Weight 165.75 lb Heart Rate 70 /min BP Systolic Sitting 118 mmHg BP Diastolic Sitting 66 mmHg 12/24/2012 2:13pm Height 70.75 inches 5'10.75" Weight 163.50 lb Heart Rate 68 /min BP Systolic Sitting 110 mmHg BP Diastolic Sitting 48 mmHg BMI (Body Mass Index) 23.0 kg/m2 12/10/2012 12:07pm Weight 162.00 lb Heart Rate 54 /min BP Systolic Sitting 126 mmHg BP Diastolic Sitting 78 mmHg 12/08/2012 1:23pm Height 70.5 inches 5'10.50" Weight 162.00 lb Heart Rate 80 /min BP Systolic Sitting 98 mmHg BP Diastolic Sitting 56 mmHg BMI (Body Mass Index) 22.9 kg/m2 02/27/2012 2:52pm Height 70.75 inches 5'10.75" Weight 156.00 lb Heart Rate 68 /min BP Systolic Sitting 100 mmHg BP Diastolic Sitting 56 mmHg Body Temperature 98.1 F BMI (Body Mass Index) 21.9 kg/m2 01/03/2012 10:08am Height 70.75 inches 5'10.75" Weight 152.00 lb Heart Rate 60 /min BP Systolic Sitting 90 mmHg BP Diastolic Sitting 46 mmHg BMI (Body Mass Index) 21.3 kg/m2 12/09/2011 10:24am Height 72 inches 6'0" Weight 157.00 lb Heart Rate 76 /min BP Systolic Sitting 114 mmHg BP Diastolic Sitting 74 mmHg Body Temperature 97.0 F lt ear BMI (Body Mass Index) 21.3 kg/m2 10/28/2011 11:26am Height 72 inches 6'0" Weight 151.00 lb Heart Rate 62 /min BP Systolic Sitting 106 mmHg BP Diastolic Sitting 64 mmHg Body Temperature 96.3 F lt ear BMI (Body Mass Index) 20.5 kg/m2 08/30/2011 11:54am Height 72 inches 6'0" Weight 154.00 lb Heart Rate 64 /min BP Systolic Sitting 104 mmHg BP Diastolic Sitting 60 mmHg Body Temperature 95.6 F rt ear BMI (Body Mass Index) 20.9 kg/m2 08/29/2011 9:24am Height 72 inches 6'0" Weight 154.00 lb Heart Rate 53 /min BP Systolic 102 mmHg BP Diastolic 64 mmHg BMI (Body Mass Index) 20.9 kg/m2 08/02/2011 12:27pm Height 71.25 inches 5'11.25" Weight 153.00 lb Heart Rate 74 /min BP Systolic Sitting 102 mmHg BP Diastolic Sitting 60 mmHg BMI (Body Mass Index) 21.2 kg/m2 03/05/2011 11:31am Height 71.25 inches 5'11.25" Weight 158.50 lb Heart Rate 64 /min BP Systolic Sitting 90 mmHg BP Diastolic Sitting 52 mmHg BMI (Body Mass Index) 21.9 kg/m2 11/06/2010 11:56am Weight 162.00 lb Heart Rate 54 /min BP Systolic Sitting 104 mmHg BP Diastolic Sitting 64 mmHg 10/12/2010 2:05pm Weight 162.00 lb Heart Rate 72 /min BP Systolic Sitting 102 mmHg BP Diastolic Sitting 68 mmHg BMI (Body Mass Index) 4.3 kg/m2 08/30/2010 10:05am Weight 164.00 lb Heart Rate 64 /min BP Systolic Sitting 100 mmHg BP Diastolic Sitting 60 mmHg 12/30/2008 4:05pm Weight 168.50 lb Heart Rate 70 /min BP Systolic Sitting 120 mmHg BP Diastolic Sitting 72 mmHg 12/21/2008 1:06pm Weight 166.00 lb Heart Rate 78 /min BP Systolic Sitting 115 mmHg BP Diastolic Sitting 67 mmHg 09/19/2008 11:09am Weight 164.00 lb Heart Rate 60 /min BP Systolic Sitting 104 mmHg BP Diastolic Sitting 68 mmHg 09/14/2008 10:40am Height 72 inches 6'0" Weight 166.00 lb Heart Rate 66 /min BP Systolic Sitting 100 mmHg BP Diastolic Sitting 60 mmHg BMI (Body Mass Index) 22.5 kg/m2 09/05/2008 1:19pm Height 72 inches 6'0" Weight 160.00 lb Heart Rate 60 /min BP Systolic Sitting 116 mmHg BP Diastolic Sitting 72 mmHg Respiratory Rate 16 /min BMI (Body Mass Index) 21.7 kg/m2 05/20/2008 2:00pm Height 72 inches 6'0" Weight 163.00 lb Heart Rate 56 /min BP Systolic Sitting 104 mmHg BP Diastolic Sitting 63 mmHg BMI (Body Mass Index) 22.1 kg/m2 Results Test Date Facility Test Result H/L Range Note Laboratory test 07/13/2018 [facility] Testosterone 462.54 N 240-950 finding [address] [facility] Total ng/[place] [address] [phone] PSA Diagnostic 1.669 ng/mL 0-4.0 1 Laboratory test 07/08/2018 [facility] Lyme Positive Abnormal Negative 2 finding [address] [facility] [place]/ [place] [address] Reflex To [phone] WB Basic Metabolic 07/08/2018 [facility] Sodium 141 mmol/L N 135- 145 Panel [address] [place] [address] [phone] Potassium 4.7 mmol/L N 3.5-5.0 Chloride 105 mmol/L N 101-111 Co2 Carbon Dioxide 33 mmol/L High 22-32 Anion Gap 3 mmol/L N 2-11 Glucose 80 mg/dL N 70-100 Blood Urea Nitrogen 18 mg/dL N 6-24 Creatinine 0.99 mg/dL N 0.67-1.17 BUN/Creatinine Ratio 18.2 N 8-20 Calcium 9.3 mg/dL N 8.6-10.3 Egfr Non- 74.5 >60 Egfr 90.2 >60 3 Laboratory 07/08/2018 [facility] Magnesium 2.1 mg/dL N 1.9- 2.[address] [place], [place] [id number] [phone] Lyme Western 07/08/2018 [facility] Lyme Disease Positive Abnormal Negative Blot [address] [facility] [place] [address] [phone] Lyme Disease IgG Bands Present See Comment kDa 4 Lyme Disease IgM Ab WB Negative Negative Lyme Disease IgM Bands Present p41 kDa Lyme Disease Interpretation See Comment 5 Laboratory test 01/28/2018 [facility] PSA Screening 1.412 ng/mL 0-4.0 6 finding [address] [place] [address] [phone] Comp Metabolic 08/07/2017 [facility] Sodium 140 mmol/L N 139- [address] [place] [address] [phone] Potassium 4.8 mmol/L N 3.5-5.0 Chloride 103 mmol/L N 101-111 Co2 Carbon Dioxide 31 mmol/L N 22-32 Anion Gap 6 mmol/L N 2-11 Glucose 90 mg/dL N 70-100 Blood Urea Nitrogen 17 mg/dL N 6-24 Creatinine 0.97 mg/dL N 0.67-1.17 BUN/Creatinine Ratio 17.5 N 8-20 Calcium 9.1 mg/dL N 8.6-10.3 Total Protein 6.7 g/dL N 6.4-8.9 Albumin 4.1 g/dL N 3.2-5.2 Globulin 2.6 g/dL N 2-4 Albumin/Globulin Ratio 1.6 N 1-3 Total Bilirubin 0.70 mg/dL N 0.2-1.0 Alkaline Phosphatase 52 U/L N 34-104 Alt 12 U/L N 7-52 Ast 17 U/L N 13-39 Egfr Non- 76.5 >60 Egfr 98.4 >60 7 Laboratory test 08/07/2017 [facility] Lyme Disease Positive Negative [address] [place] [address] [phone] Magnesium 2.1 mg/dL N 1.9-2.7 CBC Auto Diff 08/07/2017 [facility] White Blood 3.5 10^3/uL N 3.5-10.[address] [place] [address] [phone] Red Blood Count 4.06 10^6/uL N 4.0-5.4 Hemoglobin 12.9 g/dL Low 14.0-18.0 Hematocrit 39 % Low 42-52 Mean Corpuscular Volume 95 fL High 80-94 Mean Corpuscular Hemoglobin 32 pg High 27-31 Mean Corpuscular HGB Conc 33 g/dL N 31-36 Red Cell Distribution Width 14 % N 10.5-15 Platelet Count 240 10^3/uL N 150-450 Mean Platelet Volume 7.7 um3 N 7.4-10.4 Abs Neutrophils 1.4 10^3/uL Low 1.5-7.7 Abs Lymphocytes 1.3 10^3/uL N 1.0-4.8 Abs Monocytes 0.4 10^3/uL N 0-0.8 Abs Eosinophils 0.4 10^3/uL N 0-0.6 Abs Basophils 0 10^3/uL N 0-0.2 Abs Nucleated RBC 0 10^3/uL Granulocyte % 39.4 % N 38-83 Lymphocyte % 37.6 % N 25-47 Monocyte % 11.7 % High 0-7 Eosinophil % 10.5 % High 0-6 Basophil % 0.8 % N 0-2 Nucleated Red Blood Cells % 0.1 Lyme Western 08/07/2017 [facility] Lyme Disease Positive Abnormal Negative Blot [address] [place] [address] [phone] Lyme Disease IgG Bands Present p66,p45,p41,p39, <SEE NOTE> kDa 9 Lyme Disease IgM Ab WB Negative Negative Lyme Disease IgM Bands Present No bands detecte <SEE NOTE> kDa 10 Lyme Disease Interpretation See Comment 11 Inr/Protime 06/16/2017 [facility] Inr 2.08 High 0.77-1.[address] [place] [address] [phone] Laboratory test 06/16/2017 [facility] Partial 50.3 High 26.0- 36.[address] [address] PTT [phone] Laboratory test 06/05/2017 [facility] Potassium 4.8 mmol/L N 3.5-5.[address] [place] [address] [phone] Inr/Protime 06/02/2017 [facility] Inr 0.89 N 0.77-1.02 [place] [address] [phone] Laboratory test 06/02/2017 [facility] Partial 33.2 N 26.0- 36.[address] [address] PTT [phone] Urinalysis 06/02/2017 [facility] Urine Color Yellow Profile [address] [place], [place] [id number] [phone] Urine Appearance Clear Urine Specific [place] 1.021 N 1.010-1.030 Urine pH 6.0 N 5-9 Urine Urobilinogen Negative Negative Urine Ketones Negative Negative Urine Protein Negative Negative Urine Leukocytes Negative Negative Urine Blood Negative Negative * * Abnormal Negative 12 Urine Nitrite Negative Negative Urine Bilirubin Negative Negative Urine Glucose Negative Negative Type & Screen 06/02/2017 [facility] Patient Blood Type A Positive [address] [place], [place] [id number] [phone] Antibody Screen NEGATIVE Urine Culture And 06/02/2017 [facility] Urine Culture SEE RESULT [address] [place] [address] [phone] Basic Metabolic 05/23/2017 [facility] Sodium 137 mmol/L N 133- [address] [place] [address] [phone] Potassium 5.3 mmol/L High 3.5-5.0 Chloride 103 mmol/L N 101-111 Co2 Carbon Dioxide 30 mmol/L N 22-32 Anion Gap 4 mmol/L N 2-11 Glucose 88 mg/dL N 70-100 Blood Urea Nitrogen 17 mg/dL N 6-24 Creatinine 0.99 mg/dL N 0.67-1.17 BUN/Creatinine Ratio 17.2 N 8-20 Calcium 9.4 mg/dL N 8.6-10.3 Egfr Non- 74.7 >60 Egfr 96.1 >60 14 CBC Auto Diff 05/23/2017 [facility] White Blood 4.2 10^3/uL N 3.5-10.[address] [place] [address] [phone] Red Blood Count 4.36 10^6/uL N 4.0-5.4 Hemoglobin 14.1 g/dL N 14.0-18.0 Hematocrit 42 % N 42-52 Mean Corpuscular Volume 96 fL High 80-94 Mean Corpuscular Hemoglobin 32 pg High 27-31 Mean Corpuscular HGB Conc 34 g/dL N 31-36 Red Cell Distribution Width 13 % N 10.5-15 Platelet Count 259 10^3/uL N 150-450 Mean Platelet Volume 8 um3 N 7.4-10.4 Abs Neutrophils 2.2 10^3/uL N 1.5-7.7 Abs Lymphocytes 1.3 10^3/uL N 1.0-4.8 Abs Monocytes 0.5 10^3/uL N 0-0.8 Abs Eosinophils 0.3 10^3/uL N 0-0.6 Abs Basophils 0 10^3/uL N 0-0.2 Abs Nucleated RBC 0 10^3/uL Granulocyte % 51.4 % N 38-83 Lymphocyte % 29.7 % N 25-47 Monocyte % 11.9 % High 0-7 Eosinophil % 6.2 % High 0-6 Basophil % 0.8 % N 0-2 Nucleated Red Blood Cells % 0.1 Laboratory test 05/23/2017 [facility] PSA Diagnostic 5.470 High 0-4.000 [address] ng/mL [place], [place] [address] [phone] Laboratory test 04/15/2017 [facility] C Difficile SEE RESULT [address] [place] [address] [phone] Stool Calprotectin <15.6 g/G 17 Laboratory test 09/12/2016 [facility] Surgical SEE RESULT 18, [address] [place] [address] [phone] Laboratory test 08/14/2016 [facility] Glucose 67 mg/dL Low 70- [address] [place] [address] [phone] CBC Auto Diff 08/14/2016 [facility] White Blood 3.8 10^3/uL N 3.5- [address] Count 10.8 [place], [place] [address]493 [phone] Red Blood Count 4.38 10^6/uL N 4.0-5.4 Hemoglobin 13.8 g/dL Low 14.0-18.0 Hematocrit 41 % Low 42-52 Mean Corpuscular Volume 94 fL N 80-94 Mean Corpuscular Hemoglobin 31 pg N 27-31 Mean Corpuscular HGB Conc 33 g/dL N 31-36 Red Cell Distribution Width 13 % N 10.5-15 Platelet Count 267 10^3/uL N 150-450 Mean Platelet Volume 8 um3 N 7.4-10.4 Abs Neutrophils 1.9 10^3/uL N 1.5-7.7 Abs Lymphocytes 1.2 10^3/uL N 1.0-4.8 Abs Monocytes 0.4 10^3/uL N 0-0.8 Abs Eosinophils 0.2 10^3/uL N 0-0.6 Abs Basophils 0 10^3/uL N 0-0.2 Abs Nucleated RBC 0 10^3/uL N Granulocyte % 51.9 % N 38-83 Lymphocyte % 31.3 % N 25-47 Monocyte % 11.5 % High 1-9 Eosinophil % 4.6 % N 0-6 Basophil % 0.7 % N 0-2 Nucleated Red Blood Cells % 0 N Laboratory test 08/14/2016 [facility] PSA Screening 3.463 N 0- 4.0 [address] ng/[place] [address] [phone] Laboratory test 02/07/2016 [facility] PSA Diagnostic 2.562 N 0 -4.0 [address] ng/[place] [address] [phone] Laboratory test 08/08/2015 [facility] PSA Diagnostic 6.090 High 0-4.0 [address] ng/[place] [address] [phone] Lipid Profile 04/03/2015 [facility] Triglycerides 60 mg/dL N 23, 24 (Trig/Chol/HDL) [address] [place] [address] [phone] Cholesterol 156 mg/dL N 25 HDL Cholesterol 67.9 mg/dL N 26 LDL Cholesterol 76 mg/dL N 27 Laboratory test 03/17/2015 [facility] C Reactive < 1.00 N < 5.00 [address] Protein mg/[place] [address] [phone] Erythrocyte Sed Rate 12 mm/Hr N 0-40 Laboratory test 01/13/2015 [facility] PSA Diagnostic 5.003 High 0-4.0 [address] ng/[place] [address] [phone] CBC Auto Diff 01/13/2015 [facility] White Blood 3.7 Low 4.8- 10.[address] Count 10^3/[place] [address] [phone] Red Blood Count 4.09 10^6/uL N 4.0-5.4 Hemoglobin 13.2 g/dL Low 14.0-18.0 Hematocrit 40 % Low 42-52 Mean Corpuscular Volume 98 fL High 80-94 Mean Corpuscular Hemoglobin 32 pg High 27-31 Mean Corpuscular HGB Conc 33 g/dL N 31-36 Red Cell Distribution Width 13 % N 10.5-15 Platelet Count 264 10^3/uL N 150-450 Mean Platelet Volume 8 um3 N 7.4-10.4 Abs Neutrophils 1.6 10^3/uL N 1.5-7.7 Abs Lymphocytes 1.3 10^3/uL N 1.0-4.8 Abs Monocytes 0.4 10^3/uL N 0-0.8 Abs Eosinophils 0.4 10^3/uL N 0-0.6 Abs Basophils 0 10^3/uL N 0-0.2 Abs Nucleated RBC 0 10^3/uL N Granulocyte % 43.6 % N 38-83 Lymphocyte % 34.1 % N 25-47 Monocyte % 11.4 % High 1-9 Eosinophil % 10.1 % High 0-6 Basophil % 0.8 % N 0-2 Nucleated Red Blood Cells % 0.1 N Comp Metabolic Panel 01/13/2015 [facility] Sodium 138 mmol/L N 133-[address] [place] [address] [phone] Potassium 4.6 mmol/L N 3.5-5.0 Chloride 103 mmol/L N 101-111 Co2 Carbon Dioxide 33 mmol/L High 22-32 Anion Gap 2 mmol/L N 2-11 Glucose 77 mg/dL N 70-100 Blood Urea Nitrogen 18 mg/dL N 6-24 Creatinine 1.17 mg/dL N 0.67-1.17 BUN/Creatinine Ratio 15.4 N 8-20 Calcium 9.2 mg/dL N 8.6-10.3 Total Protein 6.5 g/dL N 6.4-8.9 Albumin 4.1 g/dL N 3.2-5.2 Globulin 2.4 g/dL N 2-4 Albumin/Globulin Ratio 1.7 N 1-3 Total Bilirubin 0.60 mg/dL N 0.2-1.0 Alkaline Phosphatase 52 U/L N 34-104 Alt 16 U/L N 7-52 Ast 20 U/L N 13-39 Egfr Non- 62.0 N >60 Egfr 79.7 N >60 30 Laboratory test 01/13/2015 [facility] C Reactive 5.56 mg/L High < 5.00 [address] [place] [address] [phone] Laboratory test 12/06/2014 [facility] Lyme Disease Positive N Negative [address] [place] [address] [phone] Erythrocyte Sed Rate 48 mm/Hr High 0-40 C Reactive Protein 23.53 mg/L High < 5.00 33 Lyme Western 12/06/2014 [facility] Lyme Disease Positive N Negative Blot [address] [place] [address] [phone] Lyme Disease IgG Bands Present See Comment kDa N 34 Lyme Disease IgM Ab WB Negative N Negative Lyme Disease IgM Bands Present No bands detecte <SEE NOTE> kDa N 35 Lyme Disease Interpretation See Comment N 36 Laboratory test 09/08/2014 [facility] PSA Diagnostic 4.517 High 0-4.0 [address] ng/[place] [address] [phone] Laboratory test 06/13/2014 [facility] PSA Diagnostic 7.597 High 0-4.0 [address] ng/[place] [address] [phone] Laboratory test 03/28/2014 [facility] PSA Diagnostic 6.822 High 0-4.0 [address] ng/[place] [address] [phone] Vitamin D, 25 11/30/2013 [facility] 25-Hydroxy <4.0 ng/mL N Hydroxy [address] [place]2 [place] [address] [phone] 25-Hydroxy Vitamin D3 30 ng/mL N 25-Hydroxy Vitamin D Total 30 ng/mL N 40 Comp Metabolic Panel 11/30/2013 [facility] Sodium 137 mmol/L N 133-[address] [place] [address] [phone] Potassium 4.3 mmol/L N 3.7-5.6 Chloride 103 mmol/L N 101-111 Co2 Carbon Dioxide 32 mmol/L N 22-32 Anion Gap 2 mmol/L N 2-11 Glucose 77 mg/dL N 70-100 Blood Urea Nitrogen 18 mg/dL N 6-24 Creatinine 1.15 mg/dL N 0.67-1.17 BUN/Creatinine Ratio 15.7 N 8-20 Calcium 9.1 mg/dL N 8.6-10.3 Total Protein 6.8 g/dL N 6.4-8.9 Albumin 3.9 g/dL N 3.2-5.2 Globulin 2.9 g/dL N 2-4 Albumin/Globulin Ratio 1.3 N 1-3 Total Bilirubin 0.70 mg/dL N 0.2-1.0 Alkaline Phosphatase 44 U/L N 34-104 Alt 15 U/L N 7-52 Ast 22 U/L N 13-39 Egfr Non- 63.4 N >60 Egfr 81.6 N >60 41 Vitamin D 1,25 11/30/2013 [facility] Vitamin D 45 pg/mL N 18- 64 42 And Vitamin D,[address] 1,[place] [address] [phone] Laboratory test 11/30/2013 [facility] Rheumatoid Factor <15 IU/ mL N <15 [address] [place] [address] [phone] Erythrocyte Sed Rate 16 mm/Hr N 0-40 C Reactive Protein < 0.10 mg/L N < 5.00 44 Bebe (Anti-Nuclear AB) Screen Negative N Negative Lyme Western 11/30/2013 [facility] Lyme Disease Negative N Negative Blot [address] [place] [address] [phone] Lyme Disease IgG Bands Present p41, kDa N Lyme Disease IgM Ab WB Positive N Negative Lyme Disease IgM Bands Present p41, p39, kDa N Lyme Disease Interpretation See Comment N 45 Laboratory test 11/30/2013 [facility] D Dimer < 200 N Less [address] Quantitative ng/[place] [address] [phone] Laboratory test 10/22/2013 [facility] PSA Screening 3.508 N 0- 4.0 [address] ng/[place] [address] [phone] Laboratory test 08/04/2013 [facility] PSA Diagnostic 4.430 High 0-4.0 [address] ng/[place] [address] [phone] Laboratory test 08/02/2013 [facility] D Dimer < 200 N Less [address] Quantitative ng/[place] [address] [phone] Laboratory test 06/25/2013 [facility] D Dimer < 200 N Less [address] Quantitative ng/[place] [address] [phone] Laboratory test 06/02/2013 [facility] PSA Diagnostic 5.608 High 0-4.0 [address] ng/mL [place], [place] [address] [phone] Lupus 05/19/2013 [facility] Prothrombin 10.7 sec 52 Anticoagulant AB [address] Time([place]) [place] [address] [phone] Lac Inr 1.0 Lac Aptt 35 sec 26 - 36 Lac DRVVT Screen Ratio 1.0 ratio 0.0 - 1.1 Lupus Anticoagulant Interpreta See Comment 53 Laboratory 05/07/2013 [facility] Hepatitis C Nonreactive Nonreactive test finding [address] [place] [address] [phone] Lupus 05/07/2013 [facility] Prothrombin 18.1 sec Abnorm [address] Time(Lac) [place] [address] [phone] Lac Inr 1.6 Lac PT Mix 1:1 14.5 sec Abnormal 55 Lac Aptt 48 sec Abnormal 26 - 36 Lac Aptt Mix 1:1 41 sec Abnormal 26 - 36 56 Platelet Neutralization 62 Platelet Neutraliz Buffer Cont 63 sec 57 Lac DRVVT Screen Ratio 1.9 ratio Abnormal 0.0 - 1.1 Lac DRVVT Mix Ratio 1.4 ratio Abnormal 0.0 - 1.1 58 Dil Jose Miguel Viper Trae Confirm 0.9 ratio 0.0 - 1.1 59 Lup Hexthrombin Time (Bovine) 18 sec 15 - 23 60 Lupus Anticoagulant Interpreta See Comment 61 Lupus Anticoagulant Review By Azeem Joy <SEE NOTE> 62 Coagulation Factor II >77 % 75 - 145 63 Coagulation Factor V 76 % 70 - 165 64 Coagulation Factor VII Activit 81 % 65 - 180 65 Coagulation Factor X 70 % 70 - 150 66 Staclot LA Aptt 73 Staclot LA Delta 13 sec Abnormal 0 - 7 67 Special Coagulation Interp Performed 68 Cardiolipin 05/07/2013 [facility] Cardiolipin IgG 9.7 GPL 69 Igg,Igm,Iga AB [address] [place], [place] [address] [phone] Cardiolipin IgM <4.0 MPL 70 Cardiolipin IgA <4.0 APL 71 Lipid Profile 04/05/2013 [facility] Triglycerides 53 mg/dL 40 -200 (Trig/Chol/HDL) [address] [place], [place] [address] [phone] Cholesterol 158 mg/dL Less than 200 HDL Cholesterol 64 mg/dL High 40-60 72 Cholesterol/HDL Ratio 2.5 Average 1-4.44 LDL Cholesterol 83.4 Less Than 100 73 Laboratory test 04/05/2013 [facility] Inr 1.65 High 0.85-1.[address] [place] [address] [phone] CBC Auto Diff 04/05/2013 [facility] White Blood 3.7 Low 4.8- 10.[address] Count 10^3/uL [place] [address]4542 [phone] Red Blood Count 4.43 10^6/uL 4.0-5.4 Hemoglobin [...] Red Blood Cells % 0.1 Laboratory test 04/05/2013 [facility] Erythrocyte Sed 15 mm/Hr 0-[address] [place] [address] [phone] Comp Metabolic 04/05/2013 [facility] Sodium 136 mmol/L 133- [address] [place] [address] [phone] Potassium 4.4 mmol/L 3.5-5.0 Chloride 99 mmol/L [...] Egfr Non- 74.8 >60 Egfr 96.1 >60 74 Laboratory test 04/05/2013 [facility] C Reactive < 0.5 Less finding [address] Protein mg/[place] [address] 0.5 [phone] Laboratory test 02/17/2013 [facility] PSA Diagnostic 6.474 High 0-4.000 [address] ng/[place] [address] [phone] Lupus 02/17/2013 [facility] Prothrombin 13.2 sec Abnormal 76 Anticoagulant AB [address] Time([place]) [place] [address] [phone] Lac Inr 1.2 Lac Aptt 38 sec Abnormal 26 - 36 Lac Aptt Mix 1:1 35 sec 26 - 36 77 Lac DRVVT Screen Ratio 1.2 ratio Abnormal 0.0 - 1.1 Lac DRVVT Mix Ratio 1.1 ratio 0.0 - 1.1 78 Lup Hexthrombin Time (Bovine) 18 sec 15 - 23 79 Lupus Anticoagulant Interpreta See Comment 80 Lupus Anticoagulant Review By Azeem Cuellar <SEE NOTE> 81 Staclot LA Aptt 61 Staclot LA Delta 9 sec Abnormal 0 - 7 82 Special Coagulation Interp Performed 83 Cardiolipin 02/17/2013 [facility] Cardiolipin IgG 7.6 GPL 84 Igg,Igm,Iga AB [address] [place] [address] [phone] Cardiolipin IgM <4.0 MPL 85 Cardiolipin IgA <4.0 APL 86 PSA Free And 01/04/2013 [facility] PSA Total 6.9 ng/mL Abnormal <=4.[address] [place] [address] [phone] PSA Free 0.6 ng/mL PSA Free/Total 0.09 ratio 87 Vitamin B12 And 01/04/2013 [facility] Vitamin B12 438 pg/mL 180-[address] [place] [address] [phone] Folate 6.9 ng/mL 2-16 Factor II 12/25/2012 [facility] Prothrombin Negative Negative (Prothrombin) [address] [place] [address] [phone] Prothrombin [id number] Interp See Comment 88 Prothrombin Mutation Review By See Comment 89 Factor 5 Leiden 12/25/2012 [facility] Factor V Leiden Negative Negative Mutation [address] [place] [address] [phone] Factor V Leiden Interpretation See Comment 90 Factor V Leiden Reviewed By See Comment 91 CBC Auto 12/25/2012 [facility] White Blood 4.4 10^3/uL Low 4.8 -10.[address] [place] [address] [phone] Red Blood Count 4.25 10^6/uL 4.0-5.4 Hemoglobin [...] Red Blood Cells % 0 Laboratory test 12/25/2012 [facility] Homocysteine 9 mcmol/L 92 finding [address] [place] [address] [phone] PSA Screening 7.6 ng/mL High 0-4.0 93 Comp Metabolic Panel 12/25/2012 [facility] Sodium 141 mmol/L 133-145 [address] [place] [address] [phone] Potassium 4.4 mmol/L 3.5-5.0 Chloride 103 mmol/L [...] Egfr Non- 67.0 >60 Egfr 86.1 >60 94 Laboratory test 11/06/2010 [facility] Throat Culture NF 95 , 96 finding [address] [facility] [place] [address] [phone] Surgical 10/31/2010 [facility] Surgical --------- 97 Pathology 101 [facility] Pathology ------- [place] [address] <SEE [phone] NOTE> CBC With Manual 12/09/2008 [facility] White Blood 5.0 CUMM 4.8-[address] Count 0.8 [place] [address] [phone] Red Cell Count 4.28 CUMM Low 4.6-6.2 [...] RBC Morphology NORMAL Iron & Iron Binding 12/09/2008 [facility] Iron Total 107 g/dL 45-[address] [place] [address] [phone] Unsaturated Iron Binding 180 g/dL Total Iron Binding Capacity 287 g/dL 250-450 % Iron Saturation 37 % 15-55 Vitamin B12 And 12/09/2008 [facility] Vitamin B12 547 pg/mL 180-914 Folate Serum [address] [place] [address] [phone] Folic Acid 6.5 NG/ML 2-16 Reticolocyte 12/09/2008 [facility] Reticulocyte 0.33 % Low 0.5 -1.[address] [place] [address] [phone] Corrected Retic 0.3 % Low 0.5-1.5 Retic Index 0.3 Mean Retic Volume 116.3 Immature Retic Fraction 0.22 RBC Retic Count 4.28 CUMM Low 4.6-6.2 Hematocrit For Retic Coun 41 % Low 42-52 Laboratory test 09/14/2008 [facility] Erythrocyte Sed 10 MM/HR 0-[address] [place] [address] [phone] CBC With Manual 09/14/2008 [facility] White Blood 5.4 CUMM 4.8-10.[address] [place] [address] [phone] Red Cell Count 4.24 CUMM Low 4.6-6.2 [...] Absolute Neutrophil Count 2.7 RBC Morphology NORMAL CBC With 09/08/2008 [facility] White Blood 4.0 CUMM Low 4.8- 10.8 Electronic Diff [address] [place] [address] [phone] Red Cell Count 4.32 CUMM Low 4.6-6.2 [...] 0-0.6 Abs Basophils 0.1 0-0.2 Lyme Western 09/08/2008 [facility] Lyme Disease Negative Negative 98 Blot Specialty [address] [place] [address] Blot [phone] Lyme Disease Igm Western Blot Negative Negative 99 Lyme Disease Interpretation . () 100 Comp Metabolic Panel 09/08/2008 [facility] Sodium 137 mmol/L 135-145 [address] [place] [address] [phone] Potassium 4.8 mmol/L 3.5-5.0 Chloride 102 mmol/L 101-111 Co2 (Carbon Dioxide) 30.0 mmol/L 22-32 Anion Gap 5.0 mmol/L 2-11 101 Glucose 85 mg/dL 70-100 102 BUN 10 mg/dL 6-24 Creatinine 1.10 mg/dL 0.50-1.40 One Over Creatinine 0.90 BUN/Creatinine Ratio 9.1 8-20 Calcium 8.7 mg/dL 8.1-9.9 103 Total Protein 6.1 GM/DL Low 6.2-8.1 Albumin 3.6 GM/DL 3.2-5.2 Globulin 2.5 GM/DL 2-4 Albumin/Globulin Ratio 1.4 1-3 Bilirubin Total 1.1 mg/dL 0.4-1.5 104 Alkaline Phosphatase 44 U/L 39-117 Alt (SGPT) 17 U/L 17-63 Ast (Sgot) 21 U/L 12-42 Urinalysis W/Microscopic 09/08/2008 [facility] Ua Color YELLOW [address] [place] [address] [phone] Appearance-Urine CLEAR Specific [place]-Ur 1.021 1.010-1.030 Esterase-Urine NEGATIVE Negative Nitrite NEGATIVE Negative Ecvwckiropvi-Sd-SVG NEGATIVE Negative Protein-Urine NEGATIVE Negative PH-Urine 7.0 5-9 Blood-Urine NEGATIVE Negative Ketones-Urine NEGATIVE Negative Bilirubin-Ur NEGATIVE Negative Glucose-Urine NEGATIVE Negative WBC-Urine RARE 0-5 RBC-Urine NONE SEEN 0-2 Lipid Profile 09/08/2008 [facility] Triglyceride 34 mg/dL Low 40-200 (Trig/Chol/HDL) [address] [place] [address] [phone] Cholesterol 145 mg/dL Less Than 200 105 High Density Lipoprotein 56 mg/dL 40-60 106 Cholesterol/HDL Ratio 2.59 AVERAGE 1-4.97 Low Density Lipoprotein 82 mg/dL Less Than 100 107 Laboratory test 09/08/2008 [facility] PSA,Diagnostic 2.84 NG/ML 0-4 108 finding [address] [place] [address] [phone] 1 Serum levels of PSA measured using the [employer] DXI Hybritech immunoassay should not be interpreted as absolute evidence of the presence or absence of disease. The PSA value should be used in conjunction with other pertinent clinical diagnostic procedures. The values obtained with different assay methods or kits cannot be used interchangeably. 2 Sent to reference laboratory for confirmatory testing. 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 ADDITIONAL INFORMATION Per CDC criteria, the Lyme IgG Immunoblot is interpreted as positive if IgG-class antibodies are detected to >=5 B. burgdorferi proteins, and the Lyme IgM Immunoblot is interpreted as positive if IgM-class antibodies are detected to >=2 B. burgdorferi proteins. Immunoblot patterns not meeting these criteria should not be interpreted as positive. Epitopes from certain B. burgdorferi proteins (e.g., p41) are conserved across other bacteria, which may lead to the detection of IgM- and/or IgG-class antibodies on the Lyme disease immunoblots in patients without Lyme disease. Immunoblot should only be ordered on specimens that are positive or equivocal by a FDA-licensed Lyme disease antibody screening test (e.g., EIA). Results of the Lyme IgM immunoblot should not be considered in patients with >=30 days of symptoms. Test Performed by: [facility] [place] [address] 6 Serum levels of PSA measured using the [employer] DXI Hybritech immunoassay should not be interpreted as absolute evidence of the presence or absence of disease. The PSA value should be used in conjunction with other pertinent clinical diagnostic procedures. The values obtained with different assay methods or kits cannot be used interchangeably. 7 Because ethnic data is not always readily [...] 15-29 5 Kidney failure <15 (or dialysis) 8 Not diagnostic. Supplemental testing by immunoblot has been ordered by reflex. Test Performed by: [facility] [employer] [place] [address] 9 p66,p45,p41,p39,p18 10 No bands detected 11 Consistent with infection with B. burgdorferi at [...] screening test (e.g., EIA). Test Performed by: [facility] [employer] [place] [address] 12 *Ascorbic acid is present which may interfere with detection of blood. 13 SEE RESULT BELOW Name: COLT KOEHLER : [address]: Virginia Watt MD Acct: [id number] Unit: [id number] AGE: 71 Location: [facility] Re06/02/17 SEX: M Status: REG REF SPEC: [id number] NIA: 06/02/17-[address]: Virginia Watt MD REQ: [id number] RECD: 06/02/17 STATUS: COMP _ SOURCE: URINE SPDESC: ORDERED: Urine Culture QUERIES: Urine Source: Clean Catch Procedure Result Reported Site Urine Culture Final 06/03/17- 1203 ML No Growth (<1,000 CFU/mL) * ML - Main Lab . END OF REPORT DEPARTMENT OF PATHOLOGY, [address] [place] [address] Best Hendrix M.D. Director [facility] # [id number] 14 Because ethnic data is not always readily [...] 15-29 5 Kidney failure <15 (or dialysis) 15 Serum levels of PSA measured using the [employer] DXI Hybritech immunoassay should not be interpreted as absolute evidence of the presence or absence of disease. The PSA value should be used in conjunction with other pertinent clinical diagnostic procedures. The values obtained with different assay methods or kits cannot be used interchangeably. 16 SEE RESULT BELOW Name: COLT KOEHLER : [address]: Ning Leyva MD Acct: [id number] Unit: [id number] AGE: 71 Location: [facility] Re04/15/17 SEX: M Status: REG REF SPEC: [id number] NIA: 04/15/17-[address]: Sunny Leyva MD REQ: [id number] RECD: 04/15/17 STATUS: COMP _ SOURCE: STOOL SPDESC: ORDERED: C. diff PCR/S, Fecal Lactoferr/R, O P: Thierry/Crypt/R Procedure Result Reported Site Stool Specimen Description Final 04/15/17- 1947 ML Stool Color Brown Stool Form Semi-formed Stool Consistency Soft C. difficile PCR Final 04/15/17- 2108 ML Organism 1 027 Presumptive NEGATIVE Organism 2 Toxigenic C.diff NEGATIVE Fecal Lactoferrin (Stool WBC) Final 04/16/17- 925 ML Fecal Lactoferrin Negative by Immunoassay TEST [...] performed at Main Lab DEPARTMENT OF PATHOLOGY, [address] [place] [address] Best Hendrix M.D. Director [facility] # [id number] Patient: COLT KOEHLER [id number] (Continued) Specimen: [id number] Collected: 04/15/17 Received: 04/15/17-1827 (Continued) Procedure Result Reported Site O P: Giardia/Cryptospor Screen Final (continued) 04/16/17927 at [phone]. TEST LIMITATIONS: As with all diagnostic procedures, [...] not recommended. * ML - MAIN LAB ([facility]) . END OF REPORT * ML=Testing performed at Main Lab DEPARTMENT OF PATHOLOGY, [address] [place] [address] Best Hendrix M.D. Director [facility] # [id number] 17 REFERENCE VALUE <=50.0 (Normal) Test Performed by: [facility] [address] [place] [address] 18 [id number] 19 SEE RESULT BELOW Name: MANDEEPCOLT : [address]: Garcia Antoine MD Acct: [id number] Unit: [id number] AGE: 71 Location: [facility] Re09/12/16 SEX: M Status: [facility] SPEC: [id number] NIA: 09/12/16-[address] [facility] [address]: Garcia Antoine MD REQ: [id number] RECD: 09/12/161607 STATUS: SOUT _ ORDERED: Decbirdie, LEVEL 2, LEVEL 3 COMMENTS: [id number] FINAL DIAGNOSIS 1. Wrist, right, posterior interosseous [...] by up to 1.6 cm aggregate of tygibm-diuzv-pyvk irregular bone fragments. Within the aggregate is [...] articular surface and shaggy to nodular edges. Clinical Education Consultant sections are submitted in one cassette following decalcification. CONTINUED ON NEXT PAGE * ML=Testing performed at Main Lab DEPARTMENT OF PATHOLOGY, [address] [place] [address] Best Hendrix M.D. Director [facility] # [id number] RUN DATE: 09/17/16 [facility] LAB LIVE PAGE 2 Patient: COLT KOEHLER [id number] (Continued) MICROSCOPIC DESCRIPTION (Continued) MICROSCOPIC DESCRIPTION Signed (signature on file) Best Hendrix MD 1446 END OF REPORT * ML=Testing performed at Main Lab DEPARTMENT OF PATHOLOGY, [address] [place] [address] Best Hendrix M.D. Director [facility] # [id number] 20 Serum levels of PSA measured using the [employer] DXI Hybritech immunoassay should not be interpreted as absolute evidence of the presence or absence of disease. The PSA value should be used in conjunction with other pertinent clinical diagnostic procedures. The values obtained with different assay methods or kits cannot be used interchangeably. 21 Serum levels of PSA measured using the [employer] DXI Hybritech immunoassay should not be interpreted as absolute evidence of the presence or absence of disease. The PSA value should be used in conjunction with other pertinent clinical diagnostic procedures. The values obtained with different assay methods or kits cannot be used interchangeably. 22 Serum levels of PSA measured using the [employer] [place] DXI Hybritech immunoassay should not be interpreted as absolute evidence of the presence or absence of disease. The PSA value should be used in conjunction with other pertinent clinical diagnostic procedures. The values obtained with different assay methods or kits cannot be used interchangeably. 23 FASTING 24 Desirable <150 Borderline high 150-199 High 200-499 Very High >500 25 Desirable <200 Borderline high 200-239 High >239 26 Low <40 Desirable: 40-60 High: >60 27 Desirable: <100 mg/dL Near Optimal: 100-129 mg/dL Borderline High: 130-159 mg/dL High: 160-189 mg/dL Very High: >189 mg/dL 28 Acute inflammation: >10.00 29 Serum levels of PSA measured using the [employer] [place] DXI Hybritech immunoassay should not be interpreted as absolute evidence of the presence or absence of disease. The PSA value should be used in conjunction with other pertinent clinical diagnostic procedures. The values obtained with different assay methods or kits cannot be used interchangeably. 30 Because ethnic data is not always readily [...] 15-29 5 Kidney failure <15 (or dialysis) 31 Acute inflammation: >10.00 32 Not diagnostic. Supplemental testing ordered by reflex. Test Performed by: [place] [address] Parking Lot Attendant: Gilberto Carballo II, M.D., Ph.D. 33 Acute inflammation: >10.00 34 RESULT: p93, p66, p58, p45, p41, p39, p28, p23, p18, 35 No bands detected 36 Consistent with infection with B. burgdorferi at [...] screening test (e.g., EIA). Test Performed by: [place] [address] Parking Lot Attendant: Gilberto Carballo II, M.D., Ph.D. 37 Serum levels of PSA measured using the [employer] DXI Hybritech immunoassay should not be interpreted as absolute evidence of the presence or absence of disease. The PSA value should be used in conjunction with other pertinent clinical diagnostic procedures. The values obtained with different assay methods or kits cannot be used interchangeably. 38 Serum levels of PSA measured using the [employer] DXI Hybritech immunoassay should not be interpreted as absolute evidence of the presence or absence of disease. The PSA value should be used in conjunction with other pertinent clinical diagnostic procedures. The values obtained with different assay methods or kits cannot be used interchangeably. 39 Serum levels of PSA measured using the [employer] DXI Hybritech immunoassay should not be interpreted as absolute evidence of the presence or absence of disease. The PSA value should be used in conjunction with other pertinent clinical diagnostic procedures. The values obtained with different assay methods or kits cannot be used interchangeably. 40 -- REFERENCE VALUE -- 25-HYDROXY D TOTAL (D2+D3) Optimum levels in the healthy population are 20-50, patients with bone disease may benefit from higher levels within this range. Test Performed by: [place] [address] Parking Lot Attendant: Santhosh Pompa III, M.D. 41 Because ethnic data is not always readily [...] 15-29 5 Kidney failure <15 (or dialysis) 42 Test Performed by: [place] [address] Park[address] Attendant: Santhosh Pompa III, M.D. 43 Test Performed by: [place] [address] Parking Lot Attendant: Santhosh Pompa III, M.D. 44 Acute inflammation: >10.00 45 Consistent with early infection with Borrelia burgdorferi. [...] screening test (e.g., EIA). Test Performed by: [place] [address] Parking Lot Attendant: Santhosh Pompa III, M.D. 46 Please note: The following may produce a false positive D Dimer test: - Rheumatoid factor greater than 60 IU/ml - Plasma hemoglobin greater than 0.05 gm/dl - Bilirubin greater than 50 mg/dl - Lipids greater than 1000 mg/dl - FDP greater than 20 ug/ml 47 Serum levels of PSA measured using the [employer] DXI Hybritech immunoassay should not be interpreted as absolute evidence of the presence or absence of disease. The PSA value should be used in conjunction with other pertinent clinical diagnostic procedures. The values obtained with different assay methods or kits cannot be used interchangeably. 48 Serum levels of PSA measured using the [employer] [place] DXI Hybritech immunoassay should not be interpreted as absolute evidence of the presence or absence of disease. The PSA value should be used in conjunction with other pertinent clinical diagnostic procedures. The values obtained with different assay methods or kits cannot be used interchangeably. 49 Please note: The following may produce a false positive D Dimer test: - Rheumatoid factor greater than 60 IU/ml - Plasma hemoglobin greater than 0.05 gm/dl - Bilirubin greater than 50 mg/dl - Lipids greater than 1000 mg/dl - FDP greater than 20 ug/ml 50 Please note: The following may produce a false positive D Dimer test: - Rheumatoid factor greater than 60 IU/ml - Plasma hemoglobin greater than 0.05 gm/dl - Bilirubin greater than 50 mg/dl - Lipids greater than 1000 mg/dl - FDP greater than 20 ug/ml 51 Serum levels of PSA measured using the [employer] DXI Hybritech immunoassay should not be interpreted as absolute evidence of the presence or absence of disease. The PSA value should be used in conjunction with other pertinent clinical diagnostic procedures. The values obtained with different assay methods or kits cannot be used interchangeably. 52 -- REFERENCE VALUE -- 10.3 - 12.8 53 No evidence of a lupus-like anticoagulant based on results of Prothrombin Time (PT), Activated Partial Thromboplastin Time (APTT), and Dilute Russells Viper Venom Time (DRVVT). Interpretation not reviewed by physician. Test Performed by: [place] [address] Parking [address] Attendant: Santhosh Pompa III, M.D. 54 -- REFERENCE VALUE -- 10.3 - 12.8 55 -- REFERENCE VALUE -- 10.3 - 12.8 Test Performed by: [place] [address] Parking Lot Attendant: Santhosh Pompa III, M.D. 56 Test Performed by: [place] [address] Parking Lot Attendant: Santhosh Pompa III, M.D. 57 Test Performed by: [place] [address] Parking Lot Attendant: Santhosh Pompa III, M.D. 58 Test Performed by: [place] [address] Parking Lot Attendant: Santhosh Pompa III, M.D. 59 Test Performed by: [place] [address] Parking Lot Attendant: Santhosh Pompa III, M.D. 60 Test Performed by: [place] [address] Parking Lot Attendant: Santhosh Pompa III, M.D. 61 REVISED RESULTS IMPRESSION: Probable lupus-like anticoagulant (LAC). [...] available data. The anticardiolipin antibodies are negative. 62 Olayinka Calderon M.D. Test Performed by: [place] [address] Park[address] Lot Attendant: Santhosh Pompa III, M.D. 63 Test Performed by: [place] [address] Parking Lot Attendant: Santhosh Pompa III, M.D. 64 Test Performed by: [place] [address] Parking Lot Attendant: Santhosh Pompa III, M.D. 65 Test Performed by: [place] [address] Parking Lot Attendant: Santhosh Pompa III, M.D. 66 Test Performed by: [place] [address] Parking Lot Attendant: Santhosh Pompa III, M.D. 67 Test Performed by: [place] [address] Park[address] Lot Attendant: Santhosh Pompa III, M.D. 68 Test Performed by: [place] [address] Park[address] Lot Attendant: Santhosh Pompa III, M.D. 69 -- REFERENCE VALUE -- <10.0 (Negative) 70 -- REFERENCE VALUE -- <10.0 (Negative) 71 -- REFERENCE VALUE -- <10.0 (Negative) Test Performed by: [place] [address] Park[address] Attendant: Santhosh Pompa III, M.D. 72 HDL Interpretation: Undesirable: High Risk: Less than 40 mg/dL Desirable: Low Risk: Greater than 60 mg/dL 73 LDL Interpretation: Low Risk Optimal Level: LDL Less than 100 mg/dL Near or Above Optimal: LDL 100-129 mg/dL Borderline High Risk: LDL 130-159 mg/dL High Risk: LDL 160-189 mg/dL Very High Risk: LDL Greater than 189 mg/dL 74 Because ethnic data is not always readily [...] 15-29 5 Kidney failure <15 (or dialysis) 75 Serum levels of PSA measured using the [employer] DXI Hybritech immunoassay should not be interpreted as absolute evidence of the presence or absence of disease. The PSA value should be used in conjunction with other pertinent clinical diagnostic procedures. The values obtained with different assay methods or kits cannot be used interchangeably. 76 -- REFERENCE VALUE -- 10.3 - 12.8 77 Test Performed by: [place] [address] Parking Lot Attendant: Santhosh Pompa III, M.D. 78 Test Performed by: [place] [address] Park[address] Lot Attendant: Santhosh Pompa III, M.D. 79 Test Performed by: [place] [address] Parking Lot Attendant: Santhosh Pompa III, M.D. 80 IMPRESSION: Data are equivocal for lupus anticoagulant [...] anticoagulant in the context of available data. 81 Olayinka Worley M.D. Test Performed by: [place] [address] Park[address] Attendant: Santhosh Pompa III, M.D. 82 Test Performed by: [place] [address] Park[address] Attendant: Santhosh Pompa III, M.D. 83 Test Performed by: [place] [address] Park[address] Lot Attendant: Santhosh Pompa III, M.D. 84 -- REFERENCE VALUE -- <10.0 (Negative) 85 -- REFERENCE VALUE -- <10.0 (Negative) 86 -- REFERENCE VALUE -- <10.0 (Negative) Test Performed by: [place] [address] Park[address] Lot Attendant: Santhosh Pompa III, M.D. 87 When total PSA is in the range [...] absence of malignant disease. Test Performed by: [place] [address] Parking Lot Attendant: Santhosh Pompa III, M.D. 88 This individual DOES NOT have the Prothrombin [id number] mutation. Although the Prothrombin F38921M mutation is absent, the individual may have other genetic and environmental risk factors for thrombosis. If clinically indicated, suggest Coagulation Consultation 32061 (Thrombophilia Profile) to complete the evaluation for an inherited or acquired thrombosing disorder (i.e., thrombophilia). Consider genetic consultation and counseling of potentially affected family members regarding laboratory testing. This test is a direct mutation analysis using PCR amplification, signal generation and release by cleavage of sequence specific alleles ([employer], [employer], [place], [place]). 89 RESULT: PEPE Wang Test Performed by: [place] [address] Parking [address] Attendant: Santhosh Pompa III, M.D. 90 This individual DOES NOT have the factor V Leiden (R506Q) mutation. Although the factor V Leiden mutation is absent, the individual may have other genetic and environmental risk factors for thrombosis. If clinically indicated, suggest Coagulation Consultation 43707 (Thrombophilia Profile) to complete the evaluation for an inherited or acquired thrombosing disorder (i.e., thrombophilia). This test is a direct mutation analysis using PCR amplification, signal generation and release by cleavage of sequence specific alleles ([employer], [employer], [place], [place]). 91 RESULT: PEPE Wang Test Performed by: [place] [address] Park[address] Lot Attendant: Santhosh Pompa III, M.D. 92 -- REFERENCE VALUE -- <=13 (Fasting) Test Performed by: [place] [address] Park[address] Lot Attendant: Santhosh Pompa III, M.D. 93 Serum levels of PSA measured using the [employer] [place] DXI Hybritech immunoassay should not be interpreted as absolute evidence of the presence or absence of disease. The PSA value should be used in conjunction with other pertinent clinical diagnostic procedures. The values obtained with different assay methods or kits cannot be used interchangeably. 94 Because ethnic data is not always readily [...] 15-29 5 Kidney failure <15 (or dialysis) 95 TONSILS 96 NORMAL THROAT JOSELUIS 97 ---- RUN DATE: 11/02/10 [facility] NMI LIVE PAGE 1 RUN TIME: 1257 Specimen Inquiry RUN USER: INTERFACE -- Name: COLT KOEHLER Status: REG REF Re10/31/10 Age/Sex: 65/M Unit#: [id number] Location: [facility]. : 46 -- Specimen: [id number] Spec Date: 10/31/[address]: Guru [...] 11/02/10 1254 -- -- DEPARTMENT OF PATHOLOGY, [address] [place] [address] [facility] Permit #[id number] Best Hendrix M.D. Director Fannie Cao M.D. Proposal Review Analyst Dir hai -- 98 IgG band(s) ([place]): p41 99 IgM band(s) ([place]): NONE DETECTED 100 Specific serologic response to B. burgdorferi is [...] be considered positive. Test Performed by: [facility] Dpt of Lab Med and Pathology [address] [place] [address] Parking Lot Attendant: Santhosh Pompa III, M.D. 101 Anion gap measurement may be of limited value in the presence of any alkalosis, especially in a combined acid base disorder. . 102 Note change in reference range as of 11/19/07. The change was based on recommendations from the [place] [employer]. 103 Please note change in reference range effective 07 . 104 A metabolite of Naproxen, O-desmethylnaproxen, has been shown to interfere with the [place] method for measuring total bilirubin. Samples from patients who have taken Naproxen have shown spurious elevation in total bilirubin levels. 105 CHOLESTEROL INTERPRETATION: Desirable: Less than 200 MG/DL Borderline-High Risk: 200-239 MG/DL High-Risk: 240 MG/DL and over 106 HDL INTERPRETATION: Undesirable: High Risk: Less than 40 MG/DL Desirable: Low Risk: Greater than 60 MG/DL 107 LDL INTERPRETATION: Low Risk Optimal Level: LDL Less than 100 MG/DL Near or Above Optimal: LDL 100-129 MG/DL Borderline High Risk: LDL 130-159 MG/DL High Risk: LDL 160-189 MG/DL Very High Risk: LDL Greater than 189 MG/DL 108 * SERUM LEVELS OF PSA MEASURED USING THE [employer] ACCESS HYBRITECH IMMUNOASSAY SHOULD NOT BE INTERPRETED ABSOLUTE EVIDENCE OF THE PRESENCE OR ABSENCE OF DISEASE. THE PSA VALUE SHOULD BE USED IN CONJUNCTION WITH OTHER PERTINENT CLINICAL DIAGNOSTIC PROCEDURES. Procedures Date Code Description Status 06/15/2018 53315 Destruction Malig Lesion 1.1-2CM Trunk/Arms/Legs Completed 06/15/2018 85276 Repair Immediate Wound < 2.6CM Neck/Hands/Feet/Ext Completed Genitalia 06/15/2018 29707 Excise Malig Lesion 1.1-2CM Completed Scalp/Neck/Hands/Feet/Genitalia 05/13/2018 38670 Each Separate/Additional Lesion Completed 05/13/2018 22776 Tangential Biopsy Of Skin, Single Lesion Completed 08/28/2017 92492 Holter Monitor Review (24 hr)dr review & interp only Completed 08/21/2017 18010 ECG Monitor/Recording W/Visual Superimposition Scanning Completed 06/11/2017 00640 EKG, Interpretation Only Completed 06/10/2017 29924 THR Total Hip Replacement Completed 06/10/2017 64869 THR Total Hip Replacement Completed 06/10/2017 61572 THR Total Hip Replacement Completed 05/26/2017 07409 EKG Tracing & Interpretation Completed 03/10/2017 87908 Removal Skin Tags Up To 15 Completed 12/31/2016 20326 Inject Tendon Sheath Or Ligament Aponeurosis Eg Plantar Completed Fascia 09/12/2016 89253 Transection/Avulsion, Spinal Nerve, Extradural Completed 09/12/2016 54026 Transection/Avulsion, Spinal Nerve, Extradural Completed 09/12/2016 23420 Carpal Tunnel Release Completed 09/12/2016 17378 Radial Styloidectomy Completed 09/12/2016 97855 Carpectomy ALL Bones Proximal Row Completed 09/12/2016 99361 Carpectomy ALL Bones Proximal Row Completed 08/07/2016 02411 Holter Monitor Review (24 hr)dr review & interp only Completed 08/05/2016 38682 ECG Monitor/Recording W/Visual Superimposition Scanning Completed 07/31/2016 60589 ECHO Transthoracic, Real-Time 2D With Doppler And Color Completed Flow 12/14/2013 99547 EKG Tracing & Interpretation Completed 10/15/2007 18687311 Colonoscopy Completed Encounters Type Date Location Provider Dx Diagnosis Office Visit 06/11/2018 [facility] Internal Sunny Muñoz R10.2 Pelvic and 1:40p Medicine - Tbjose miguel Leyva M.D.,FACP perineal pain Rd Z86.72 Personal history of thrombophlebitis Office Visit 05/13/2018 3:10p [facility] Dermatology Teofilo Strauss MD L57.0 Actinic keratosis L82.1 Other seborrheic keratosis D18.01 Hemangioma of skin and subcutaneous tissue B35.1 Tinea unguium C44.519 Basal cell carcinoma of skin of other part of trunk C44.41 Basal cell carcinoma of skin of scalp and neck L98.9 Disorder of the skin and subcutaneous tissue, unspecified Office Visit 09/10/2017 [facility] Garcia 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 right wrist G56.01 Carpal tunnel syndrome, right upper limb G56.21 Lesion of ulnar nerve, right upper limb Office Visit 2017 3:40p [facility] Internal Sunny Muñoz R42 Dizziness and Medicine - Tbjose miguel Leyva M.D.,FACP giddiness Rd D75.89 Other specified diseases of blood and blood-forming organs A69.20 Lyme disease, unspecified Z12.11 Encounter for screening for malignant neoplasm of colon Office Visit 08/06/2017 2:00p [facility] Internal Kourtney Guardado, I95.2 Hypotension due to Medicine - [facility] MANAGER drugs Rd R42 Dizziness and giddiness S70.361A Insect bite (nonvenomous), right thigh, initial encounter M25.551 Pain in right hip R21 Rash and other nonspecific skin eruption Office Visit 06/12/2017 [facility] Lucia Gaxiola, R00.1 Bradycardia, 10:17a Assocgeoffrey M.D. unspecified Hospitalists I95.2 Hypotension due to drugs Z96.641 Presence of right artificial hip joint Office Visit 06/11/2017 10:15a [facility] Garcia I95.2 Hypotension due Assocgeoffrey M.D. to drugs Hospitalists R00.1 Bradycardia, unspecified R05 Cough Z96.641 Presence of right artificial hip joint Office Visit 05/26/2017 [facility] Internal Sunny Muñoz Z01.810 Encounter for 1:00p Izabel - Mitchel Leyva,FACP preprocedural [address] cardiovascular examination M16.11 Unilateral primary osteoarthritis, right hip M25.552 Pain in left hip R97.20 Elevated prostate specific antigen [PSA] Z86.718 Personal history of other venous thrombosis and embolism Office Visit 04/11/2017 2:00p Orthopedic Services Virginia Watt M25.551 Pain in right Of C.M.A. 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 right wrist G56.01 Carpal tunnel syndrome, right upper limb G56.21 Lesion of ulnar nerve, right upper limb Office Visit 03/10/2017 2:40p [facility] Dermatology Teofilo Strauss, L82.1 Other seborrheic MD keratosis L57.0 Actinic keratosis D18.01 Hemangioma of skin and subcutaneous tissue B35.1 Tinea unguium B35.3 Tinea pedis I83.92 Asymptomatic varicose veins of left lower extremity L91.8 Other hypertrophic disorders of the skin Z78.9 Other specified health status L53.8 Other specified erythematous conditions R23.8 Other skin changes S00.202A Unsp superfic injury of left eyelid and perioculr area, init S00.80xA Unsp superficial injury of other part of head, init encntr Office Visit 12/31/2016 Myrna Zelaya M19.031 Primary 2:15p Services Of MD Arash osteoarthritis, C.M.A. right wrist G56.01 Carpal tunnel syndrome, right upper limb G56.21 Lesion of ulnar nerve, right upper limb M65.331 Trigger finger, right middle finger Office Visit 09/03/2016 [facility] Garcia M19.031 Primary 2:00p Services Of MD Arash osteoarthritis, C.M.A. 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 right wrist G56.01 Carpal tunnel syndrome, right upper limb Office Visit 07/24/2016 4:20p [facility] Internal Sunny Muñoz G45.9 Transient cerebral Medicine Carol Leyva M.D.,FACP ischemic attack, [address] unspecified M19.031 Primary osteoarthritis, right wrist M54.5 Low back pain Office Visit 07/03/2016 [facility]opedic Garcia M11.231 Other 2:00p Services Of MD Arash chondrocalcinosis, C.M.A. right wrist M19.031 Primary osteoarthritis, right wrist Office Visit 06/21/2016 Orthopedic Garcia M19.031 Primary 3:00p Services Of MD Arash osteoarthritis, C.M.A. right wrist M71.331 Other bursal cyst, right wrist Office Visit 06/10/2016 4:20p [facility] Internal Sunny Muñoz M71.331 Other bursal Medicine - Tbjose miguel Leyva M.D.,FACP cyst, right Rd wrist Office Visit 03/12/2016 9:50a [facility] Internal Sunny Muñoz M25.551 Pain in right Izabel Leyva M.D.,FACP hip L30.9 Dermatitis, unspecified Office Visit 01/22/2016 2:40p [facility] Internal Sunny Muñoz M46.1 Sacroiliitis, not Izabel Leyva M.D.,FACP elsewhere [address] classified M25.551 Pain in right hip Z23 Encounter for immunization Office Visit 05/15/2015 2:40p [facility] Internal Jaden Phelan, L40.9 Psoriasis, Medicine - [employer] unspecified [address] Office Visit 03/17/2015 3:40p [facility] Internal Sunny Muñoz T84.84xS Pain due to Medicine Carol Leyva, internal [place] Matias Grullon,FACP orthopedic prosth dev/grft, sequela Office Visit 12/19/2014 2:50p [facility] Internal Sunny Muñoz A69.20 Lyme disease, Medicine - Gordon, unspecified [place] Matias Grullon,FACP R53.83 Other fatigue Office Visit 12/06/2014 10:10a [facility] Internal Sunny Muñoz 088.81 Lyme Disease Medicine Mitchel Leyva,FACP 719.48 Pain Joint Other Spec Sites Office Visit 08/25/2014 11:30a [facility] Internal Sunny Muñoz 478.11 Nasal Mucositis Izabel Leyva M.D.,FACP (Ulcerative) [address] 088.81 Lyme Disease Office Visit 08/05/2014 3:30p [facility] Internal Guru Teran NP 704.8 Hair & Hair Medicine - [address] Diseases Other Spec Office Visit 04/12/2014 2:30p [facility] Internal Guru Teran NP 719.46 Pain Joint Lower Medicine Leg 729.5 Pain In Limb Office Visit 12/23/2013 11:00a [facility] Internal Guru Teran NP 088.81 Lyme Disease Medicine Office Visit 12/14/2013 1:00p [facility] Internal Guru Teran NP 088.81 Lyme Disease Medicine 786.50 Pain Chest Unspec Office Visit 12/09/2013 10:30a [facility] Guru Teran, 919.4 Injury Superficial Medicine [employer] Insect Bite Oth Mult Unsp Nonv W/O Infect 453.52 Chronis Venous Embolism&Thrombosis,Deep Vessel Distal Lower Office Visit 11/30/2013 10:30a [facility] Internal Guru Teran, 724.2 Lumbago Medicine [employer] Office Visit 04/16/2013 3:00p [facility] Internal Sunny Muñoz V70.0 Examination General Medicine Gordon, Medical Routine AT .,[facility] 453.52 Chronis Venous Embolism&Thrombosis,Deep Vessel Distal Lower 790.93 Elevated Prostate Specific Antigen (PSA) V73.99 Screening Examination Viral Disease Unspec 719.43 Pain Joint Forearm Office Visit 02/12/2013 [facility] Muñoz 453.40 Acute Venous Embolism 9:40a Medicine Gordon, & Thrombosis,Unspec Wanda,[facility] Deep Vessels Lower 790.93 Elevated Prostate Specific Antigen (PSA) 719.45 Pain Joint Pelvic Region & Thigh Office Visit 01/22/2013 8:30a [facility] Internal Nubia Nehemiah, 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 Office Visit 01/04/2013 9:10a [facility] Internal Sunny Muñoz 173.61 Basal Cell Medicine Mitchel Leyva,FAC Carcinoma Skin Upper Limb Including Shoulder 790.93 Elevated Prostate Specific Antigen (PSA) 281.1 Vitamin B12 Deficiency Anemia Other v04.81 Need For Prophylactic Vaccination & Inoculation/Influenza Office Visit 12/24/2012 [facility] Internal Sunny Muñoz 453.40 Acute Venous Embolism 2:00p Medicine Gordon, & Thrombosis,Unspec M.Wanda,FAC Deep Vessels Lower 786.2 Cough 285.8 Anemia Other Spec V76.44 Screening For Malig Neil Prostate Office Visit 12/10/2012 [facility] Internal Darci Garcias 453.40 Acute Venous Embolism & 12:00p Izabel Santiago M.D. Thrombosis,Unspec Deep Vessels Lower Office Visit 12/08/2012 [facility] Internal Darci Garcias 719.46 Pain Joint Lower Leg 1:20p Izabel Santiago M.D. 709.9 Skin & Subcutaneous Tissue Disorders Unspec Office Visit 02/27/2012 2:40p [facility] Mohini Santiago, 784.0 Headache Medicine Mitchel V04.81 Need For Prophylactic Vaccination & Inoculation/Influenza V03.82 Streptococcus Pneumoniae Vaccination Spec Other Office Visit 01/03/2012 10:00a [facility] Mohini Garcias 466.0 Bronchitis Acute Izabel Santiago M.D. Office Visit 12/09/2011 10:10a [facility] Internal Sunny Muñoz 466.0 Bronchitis Acute Izabel Leyva M.D.,FACP Office Visit 10/28/2011 10:50a [facility] Mohini Muñoz 455.9 Hemorrhoidal Skin Medicine Gordon Tags Residual Mitchel,FAC Office Visit 08/30/2011 11:40a [facility] Mohini Muñoz 054.19 Herpes Simplex Medicine Gordon Genital Herpes Mitchel,[facility] Other 846.1 Sprains & Strains Sacroiliac Region Sacroiliac Ligament Office Visit 08/29/2011 8:45a Orthopedic Dirgracia Myrick, 726.5 [facility] Pain Joint Pelvic Region & Thigh Office Visit 08/02/2011 12:15p Oncology Pharmacist Internal uNbia Cerna, 719.45 Pain Joint Medicine N.P. 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 443.0 Raynauds Syndrome V04.81 Need For Prophylactic Vaccination & Inoculation/Influenza Office Visit 11/06/2010 11:40a DO Not Use Oncology Pharmacist Sunny Muñoz 462 Pharyngitis Acute AT Felicitas Leyva M.D.,[facility] Office Visit 10/12/2010 1:40p DO Not Use Oncology Pharmacist Sunny Muñoz 911.4 Injury Superficial AT Felicitas Leyva M.D.,[facility] Insect Bite Trunk Nonvenomous W/O Infect 110.1 Dermatophytosis Nail 238.2 Neoplasm Uncertain Skin V05.4 Varicella Vaccination & Inoculation V05.8 Single Disease Spec Other Vaccination & Inoculation Office Visit 08/30/2010 9:45a DO Not Use Oncology Pharmacist Nubia Cerna, 911.4 Injury Superficial AT [facility] N.PJorge Insect Bite Trunk Nonvenomous W/O Infect Office Visit 12/30/2008 4:00p DO Not Use Oncology Pharmacist Hiral, 782.1 Rash & Other AT Felicitas De La Rosa M.D. Nonspec Skin Eruption Office Visit 12/21/2008 1:00p DO Not Use Oncology Pharmacist Hiral, 281.9 Anemia Deficiency AT Felicitas De La Rosa M.D. Unspec 782.1 Rash & Other Nonspec Skin Eruption Office Visit 09/19/2008 11:00a DO Not Use Oncology Pharmacist Hiral 281.9 Anemia AT Felicitas De La Rosa M.D. Deficiency Unspec 782.1 Rash & Other Nonspec Skin Eruption Office Visit 09/14/2008 10:00a DO Not Use Oncology Pharmacist Hiral 719.41 Pain Joint AT Felicitas De La Rosa M.D. Shoulder Region 719.49 Pain Joint Multiple Sites Office Visit 09/05/2008 1:00p DO Not Use Oncology Pharmacist Hiral, 911.4 Injury AT Felicitas De La Rosa M.D. Superficial Insect Bite Trunk Nonvenomous W/O Infect Office Visit 05/20/2008 2:00p DO Not Use Oncology Pharmacist Sunny Muñoz 727.67 Ruptured Tendon AT Felicitas Leyva M.D.,FACP Achilles Plan of Treatment Future Appointment(s):01/04/2019 3:30 pm - Teofilo Strauss MD at [facility] Isczuccwevn81/10/2019 3:00 pm - Lili Aquino MD at [facility] Internal [id number] 2:00 pm - Teofilo Strauss MD at [facility] Ayookjxvgjv74/19/2019 - Honey Melo, MDM25.562 Pain in left kneeComments:I think you might have a Hernandez's cyst, which is treated conservatively with ibuprofen and ice as vndsixU39.2 Cramp and spasmComments:use the cyclobenzaprine as needed and increase your intake of potassium rich foods
--- NOTE | 2018-07-18 14:29 | ED ---
Lower Extremity - HPI Summary HPI Summary: This patient is a 72 year old male presenting to [facility] with a chief complaint of LLE pain minutes [employer]. He states there is a spot behind his left knee. He reports swelling and erythema in the area as well as a red quarter size lump to the anterior LLE that is hot to palpation. Due to a Hx of DVT in the same extremity, he wants to get checked for DVT. He rates his pain 2/10 in severity and he describes it as a dull ache. The patient experienced erythema in his left leg near his hamstring a couple weeks ago and tested negative for Lyme. - History of Current Complaint Chief Complaint: EDExtremityLower Stated Complaint: POSS BLOOD CLOT Hx Obtained From: Patient Onset of Pain: Minutes, Prior to Arrival Onset/Duration: Still Present Severity Currently: Mild Pain Intensity: 2 Pain Scale Used: 0-10 Numeric Character Of Pain: Dull, Aching Associated Signs And Symptoms: Positive: Swelling, Redness - Allergies/Home Medications Allergies/Adverse Reactions: Allergies Allergy/AdvReac Type Severity Reaction Status Date / Time morphine Allergy Severe Anaphylatic Verified 07/18/18 14:36 Shock celecoxib Allergy Intermediate Difficulty Verified 07/18/18 14:36 Breathing diphenhydramine Allergy Intermediate Dizziness Verified 07/18/18 14:36 rofecoxib Allergy Intermediate Difficulty Verified 07/18/18 14:36 Breathing oxycodone AdvReac Nausea And Verified 07/18/18 14:36 Vomiting environmental Allergy Intermediate Rash Uncoded 07/18/18 14:36 PMH/Surg Hx/FS Hx/Imm Hx Cardiovascular History: Reports: Hx Deep Vein Thrombosis - PATIENT HAS SEVERAL BLOOD CLOTS LEFT LEG, Other Cardiovascular Problems/Disorders - vasovagal reponse after blood drawn, bending over then standing, DVT left Respiratory History: Reports: Other Respiratory Problems/Disorders - hx pneumonia GI History: Reports: Hx Gastroesophageal Reflux Disease, Hx Ulcer - stomach - 30 years ago, Other GI Disorders - had malaria synptoms when out of the country years ago, parasites Musculoskeletal History: Reports: Hx Arthritis - , hands,neck, right hip,knne, back, Hx Bursitis - right shoulder, mild Denies: Other Musculoskeletal History Sensory History: Reports: Hx Cataracts - mild in both eyes, Hx Contacts or Glasses - glasses Denies: Hx Hearing Aid Opthamlomology History: Reports: Hx Cataracts - mild in both eyes, Hx Contacts or Glasses - glasses Neurological History: Reports: Hx Headaches - as a child - Cancer History Cancer Type, Location and Year: Skin cancer. Possibly prostate ca Hx Chemotherapy: No - Surgical History Surgery Procedure, Year, and Place: total left hip and knee, hip- 2001, [facility] , left knee, 2006, [facility]. cyst removal right scrotum, 2006. left inguinal hernia repair, 1984, [facility]. right proximal eow carpectomy and carpal tunnel release 08/2016 Hx Anesthesia Reactions: Yes - pt states he almost , was given morphine Infectious Disease History: No Infectious Disease History: Reports: Hx Human Immunodeficiency Virus (HIV) Denies: History Other Infectious Disease, Traveled Outside the [place] in Last 30 Days - Family History Known Family History: Positive: Cardiac Disease - CHF, [place] - Social History Alcohol Use: None Substance Use Type: Reports: None Smoking Status (MU): Never Smoked Tobacco Review of Systems Positive: Edema - LLE Positive: Rash - LLE All Other Systems Reviewed And Are Negative: Yes Physical Exam - Summary Physical Exam Summary: Appearance: The patient is well-nourished in no acute distress and in no acute pain. Skin: The skin is warm and dry and skin color reflects adequate perfusion. Mild erythema in his left medial calf with a swollen indurated area centrally. HEENT: The head is normocephalic and atraumatic. The pupils are equal and reactive. The conjunctivae are clear and without drainage. Nares are patent and without drainage. Mouth reveals moist mucous membranes and the throat is without erythema and exudate. The external ears are intact. The ear canals are patent and without drainage. The tympanic membranes are intact. Neck: The neck is supple with full range of motion and non-tender. There are no carotid bruits. There is no neck vein distension. Respiratory: Chest is non-tender. Lungs are clear to auscultation and breath sounds are symmetrical and equal. Cardiovascular: Heart is regular rate and rhythm. There is no murmur or rub auscultated. There is no peripheral edema and pulses are symmetrical and equal. Abdomen: The abdomen is soft and non-tender. There are normal bowel sounds heard in all four quadrants and there is no organomegaly palpated. Musculoskeletal: There is no back tenderness noted. Extremities are non-tender with full range of motion. There is good capillary refill. There is no peripheral edema or calf tenderness elicited. Neurological: Patient is alert and oriented to person, place and time. The patient has symmetrical motor strength in all four extremities. Cranial nerves are grossly intact. Deep tendon reflexes are symmetrical and equal in all four extremities. Psychiatric: The patient has an appropriate affect and does not exhibit any anxiety or depression. Triage Information Reviewed: Yes Vital Signs On Initial Exam: Initial Vitals Temp Pulse Resp BP Pulse Ox 97.9 F 60 16 123/69 99 07/18/18 13:57 07/18/18 13:57 07/18/18 13:57 07/18/18 13:57 07/18/18 13:57 Vital Signs Reviewed: Yes Diagnostics - Vital Signs Vital Signs Temp Pulse Resp BP Pulse Ox 07/18/18 13:57 97.9 F 60 16 123/69 99 - Laboratory Lab Statement: Any lab studies that have been ordered have been reviewed, and results considered in the medical decision making process. - Ultrasound No standard instances Ultrasound Interpretation Completed By: Radiologist Summary of Ultrasound Findings: Venous Doppler Study Lower EXT Veins Left: Thrombosis of one of the paired posterior tibial vein. ED Provider has reviewed this report. Lower Extremity Course/Dx - Course Course Of Treatment: Mr. Koehler presented with some swelling and pain on the medial anterior aspect of his left lower leg. He also has a varicosity there but it is gotten hard. Clinically he had a superficial thrombophlebitis in that region that was not superative. I obtained a venous Doppler and it revealed that he has propagated proximally into her his posterior tibial vein representing a DVT at this point. He was placed on sotalol tomorrow which she has been on in the past successfully. He was due to fly to [place] on Friday and I recommended against that. - Diagnoses Provider Diagnoses: DVT (deep venous thrombosis) Discharge - Sign-Out/Discharge Documenting (check all that apply): Patient Departure - Discharge Patient Received Moderate/Deep Sedation with Procedure: No - Discharge Plan Condition: Stable Disposition: HOME Prescriptions: Rivaroxaban TAB(*) [Xarelto 15 mg(*)] 15 mg PO BID #14 tab Patient Education Materials: Deep Vein Thrombosis (ED) Forms: *Gen. Provider Communication Referrals: Lili Aquino MD [Primary Care Provider] - 07/20/18 Additional Instructions: Return to ED with any new or worsening symptoms. No air travel. - Billing Disposition and Condition Condition: STABLE Disposition: Home - Attestation Statements Document Initiated by Dara: Yes Documenting Scribe: Garcia Fair Provider For Whom Dara is Documenting (Include Credential): Favio Euceda MD Scribe Attestation: Garcia Timmons, scribed for Favio Euceda MD on 07/18/18 at 1748. Scribe Documentation Reviewed: Yes Provider Attestation: The documentation as recorded by the ceciliaibGarcia dietrich accurately reflects the service I personally performed and the decisions made by me, Favio Euceda MD Status of Scribe Document: Viewed
[2018-07-18 16:36] VITALS: BP 127/69
== END 2018-07-18 16:36 | disposition home or self-care (01) ==
LOC: ED 13:52
DX: I82.442 Acute embolism and thrombosis of left tibial vein (principal); Z86.718 Personal history of other venous thrombosis and embolism; K21.9 Gastro-esophageal reflux disease without esophagitis; C44.90 Unspecified malignant neoplasm of skin, unspecified; B20 Human immunodeficiency virus [HIV] disease
CPT/HCPCS: 99283